=== PATIENT | male | born 1950 | race African-American/Black ===

== ENCOUNTER → 2017-11-26 13:17 | Outpatient (CLI) | payer MEDICARE, SELFPAY ==
--- NOTE | 2017-11-27 08:44 | PFT ---
INTRODUCTION: The patient is a 67-year-old -[place] male currently under the care of myself the presents for pulmonary function testing secondary to a diagnosis of sarcoidosis. Respiratory therapy reports good patient effort. Bronchodilators were used during testing. INTERPRETATION: Forced expiration spirometry demonstrates the presence of a mild large airways obstructive ventilatory impairment. There was no significant response to aerosolized bronchodilators. Spirograms are of good quality and plateau gradually indicating slow emptying of the lungs. Body plethysmography was performed and reveals a TLC of 5.27 L, 83% of predicted, indicative of a mild restrictive ventilatory defect. Diffusing capacity by single breath CO is within normal limits at 86% of predicted. IMPRESSION: These pulmonary function studies demonstrate the presence of an irreversible mild mixed ventilatory defect, with findings similar to prior PFTs.
--- NOTE | 2017-11-27 08:50 | PFT_ITS ---
INTRODUCTION: The patient is a 67-year-old -[place] male currently under the care of myself the presents for pulmonary function testing secondary to a diagnosis of sarcoidosis. Respiratory therapy reports good patient effort. Bronchodilators were used during testing. INTERPRETATION: Forced expiration spirometry demonstrates the presence of a mild large airways obstructive ventilatory impairment. There was no significant response to aerosolized bronchodilators. Spirograms are of good quality and plateau gradually indicating slow emptying of the lungs. Body plethysmography was performed and reveals a TLC of 5.27 L, 83% of predicted, indicative of a mild restrictive ventilatory defect. Diffusing capacity by single breath CO is within normal limits at 86% of predicted. IMPRESSION: These pulmonary function studies demonstrate the presence of an irreversible mild mixed ventilatory defect, with findings similar to prior PFTs.
== END ==
PROVIDERS: Family Provider Family Medicine; PCP Family Medicine; Visit Provider Internal Medicine Critical Care Medicine
DX: D86.9 Sarcoidosis, unspecified (principal)
CPT/HCPCS: 94060; 94726; 94729

== ENCOUNTER → 2018-03-19 11:22 | Outpatient (CLI) | payer MEDICARE, SELFPAY ==
[2018-03-19 12:43] LABS: AST(SGOT) 17 U/L (15-37); Alanine Aminotransfer ALT/SGPT 28 U/L (16-61); Albumin, Serum 3.2 g/dL (3.2-5.0); Alkaline Phosphatase 60 U/L (45-117); Anion Gap 9 (5-15); BUN 16 mg/dL (7-18); BUN/Creat Ratio 14.2 RATIO (10-20); Bilirubin, Direct 0.17 mg/dL (0.00-0.30); Calcium,Total 8.8 mg/dL (8.5-10.1); Chloride 104 mmol/L (98-107); Cholesterol 153 mg/dL (200); Creatinine, Serum 1.13 mg/dL (0.70-1.30); EST Glomerular Filtration Rate 69 mL/min (>60); Est Glom Filt Rate - Afr Amer 83 mL/min (>60); Globulin 3.9 g/dL (2.2-4.2); Glucose 95 mg/dL (74-106); High Density Lipoprotein 47 mg/dL; Potassium 4.2 mmol/L (3.5-5.1); Protein, Total 7.1 g/dL (6.4-8.2); Sodium Level 140 mmol/L (136-145); Thyroid Stim Hormone (TSH) 0.97 uIU/mL (0.358-3.74); Triglycerides 67 mg/dL; Very Low Density Lipoprotein 13 mg/dL (5-40)
== END ==
PROVIDERS: Family Provider Family Medicine; PCP Family Medicine; Visit Provider Internal Medicine Cardiovascular Disease
DX: I10 Essential (primary) hypertension (principal); E78.5 Hyperlipidemia, unspecified; Z95.810 Presence of automatic (implantable) cardiac defibrillator
CPT/HCPCS: 36415; 80048; 80061; 80076; 84443

== ENCOUNTER → 2019-02-03 | Outpatient (CLI) | payer MEDICARE, OTHER, SELFPAY ==
[2019-02-03 12:58] VITALS: BMI 33.6
[2019-02-03 17:42] LABS: AST(SGOT) 15 U/L (15-37); Alanine Aminotransfer ALT/SGPT 31 U/L (16-61); Albumin, Serum 3.3 g/dL (3.2-5.0); Alkaline Phosphatase 68 U/L (45-117); Anion Gap 5 (5-15); BUN 19 mg/dL (7-18); BUN/Creat Ratio 16.4 RATIO (10-20); Bilirubin, Direct 0.14 mg/dL (0.00-0.30); Calcium,Total 9.6 mg/dL (8.5-10.1); Chloride 106 mmol/L (98-107); Cholesterol 133 mg/dL (200); Creatinine, Serum 1.16 mg/dL (0.70-1.30); EST Glomerular Filtration Rate 67 mL/min (>60); Est Glom Filt Rate - Afr Amer 81 mL/min (>60); Glucose 86 mg/dL (74-106); High Density Lipoprotein 54 mg/dL; Potassium 4.1 mmol/L (3.5-5.1); Protein, Total 7.3 g/dL (6.4-8.2); Sodium Level 140 mmol/L (136-145); Thyroid Stim Hormone (TSH) 1.14 uIU/mL (0.358-3.74); Triglycerides 63 mg/dL; Very Low Density Lipoprotein 13 mg/dL (5-40)
== END | disposition home or self-care (01) ==
PROVIDERS: Family Provider Family Medicine; PCP Family Medicine; Referring Provider Internal Medicine Cardiovascular Disease; Visit Provider Internal Medicine Cardiovascular Disease
DX: E78.5 Hyperlipidemia, unspecified (principal)
CPT/HCPCS: 36415; 80048; 80061; 80076; 84443

== ENCOUNTER → 2019-08-30 14:15 | Outpatient (CLI) | payer MEDICARE, OTHER, SELFPAY ==
[2019-08-25 16:04] VITALS: BMI 34.7
[2019-08-30 16:33] LABS: AST(SGOT) 18 U/L (15-37); Alanine Aminotransfer ALT/SGPT 33 U/L (16-61); Albumin, Serum 3.4 g/dL (3.2-5.0); Alkaline Phosphatase 68 U/L (45-117); Anion Gap 5 (5-15); BUN 13 mg/dL (7-18); BUN/Creat Ratio 11.8 RATIO (10-20); Bilirubin, Direct 0.22 mg/dL (0.00-0.30); Calcium,Total 9.2 mg/dL (8.5-10.1); Chloride 105 mmol/L (98-107); Cholesterol 191 mg/dL (200); EST Glomerular Filtration Rate 71 mL/min (>60); Est Glom Filt Rate - Afr Amer 86 mL/min (>60); Globulin 4.3 g/dL (2.2-4.2); Glucose 88 mg/dL (74-106); High Density Lipoprotein 59 mg/dL; Magnesium 1.8 mg/dL (1.6-2.6); Potassium 3.9 mmol/L (3.5-5.1); Protein, Total 7.7 g/dL (6.4-8.2); Sodium Level 137 mmol/L (136-145); Thyroid Stim Hormone (TSH) 1.08 uIU/mL (0.358-3.74); Triglycerides 71 mg/dL; Very Low Density Lipoprotein 14 mg/dL (5-40)
== END ==
PROVIDERS: PCP Family Medicine; Referring Provider Internal Medicine Cardiovascular Disease; Visit Provider Internal Medicine Cardiovascular Disease
DX: I47.2 Ventricular tachycardia (principal); E78.5 Hyperlipidemia, unspecified; E66.9 Obesity, unspecified; I25.5 Ischemic cardiomyopathy; I10 Essential (primary) hypertension
CPT/HCPCS: 36415; 80048; 80061; 80076; 83735; 84443

== ENCOUNTER → 2020-03-27 14:54 | Outpatient (CLI) | payer MEDICARE, OTHER, SELFPAY ==
[2020-03-27 13:20] VITALS: BMI 35.9
[2020-03-27 16:59] LABS: AST(SGOT) 20 U/L (15-37); Alanine Aminotransfer ALT/SGPT 29 U/L (16-61); Albumin, Serum 3.4 g/dL (3.2-5.0); Alkaline Phosphatase 69 U/L (45-117); Bilirubin, Direct 0.18 mg/dL (0.00-0.30); Cholesterol 191 mg/dL (200); Globulin 4.2 g/dL (2.2-4.2); High Density Lipoprotein 56 mg/dL; Protein, Total 7.6 g/dL (6.4-8.2); Triglycerides 84 mg/dL; Very Low Density Lipoprotein 17 mg/dL (5-40)
== END ==
PROVIDERS: PCP Family Medicine; Referring Provider Internal Medicine Cardiovascular Disease; Visit Provider Internal Medicine Cardiovascular Disease
DX: E78.5 Hyperlipidemia, unspecified (principal); E78.00 Pure hypercholesterolemia, unspecified
CPT/HCPCS: 36415; 80061; 80076

== ENCOUNTER → 2020-05-16 | Outpatient (CLI) | payer MEDICARE, OTHER, SELFPAY ==
[2020-03-27 13:20] VITALS: BMI 35.9
== END | disposition home or self-care (01) ==
LOC: LABSPEC 05-17 10:43
PROVIDERS: PCP Family Medicine; Referring Provider Nurse Practitioner Acute Care; Visit Provider Nurse Practitioner Acute Care
DX: Z20.828 Contact with and (suspected) exposure to other viral communicable diseases (principal)
CPT/HCPCS: 87635; C9803; U0003

== ENCOUNTER → 2020-07-17 14:35 | Outpatient (CLI) | payer MEDICARE, OTHER, SELFPAY ==
[2020-03-27 13:20] VITALS: BMI 35.9
[2020-07-18 07:00] LABS: SARS-COV-2 TOTAL ABS Reactive (Nonreactive)
== END ==
PROVIDERS: PCP Family Medicine; Referring Provider Nurse Practitioner Acute Care; Visit Provider Nurse Practitioner Acute Care
DX: U07.1 COVID-19 (principal)
CPT/HCPCS: 36415; 86769

== ENCOUNTER → 2020-07-30 08:12 | Outpatient (CLI) | payer MEDICARE, OTHER, SELFPAY ==
[2020-03-27 13:20] VITALS: BMI 35.9
--- NOTE | 2020-07-31 09:02 | PFT ---
INTRODUCTION: The patient is a 70-year-old -[place] male who presents for pulmonary function studies secondary to a diagnosis of sarcoidosis. Respiratory therapy reports good patient effort. Bronchodilators were used during testing. INTERPRETATION: Forced expiration spirometry demonstrates the presence of a moderate large airways obstructive ventilatory defect. There was no significant response to aerosolized bronchodilators. Spirograms are of good quality but do not plateau indicating slow emptying of the lungs. Body plethysmography was performed and revealed a decreased TLC to 4.86 L, 77% of predicted, indicative of a mild restrictive ventilatory impairment. Diffusing capacity by single breath CO is within normal limits. When compared to pulmonary function studies from November 2017, there has been a 16% reduction in FEV1 along with an 11% reduction in DLCO. IMPRESSION: Irreversible moderate mixed ventilatory defect with preserved diffusing capacity. There have been reductions in the patient's FEV1 and DLCO since 2017, as noted above.
== END ==
PROVIDERS: PCP Family Medicine; Referring Provider Internal Medicine Critical Care Medicine; Visit Provider Internal Medicine Critical Care Medicine
DX: I25.5 Ischemic cardiomyopathy (principal); D86.9 Sarcoidosis, unspecified
CPT/HCPCS: 94060; 94726; 94729

== ENCOUNTER → 2020-08-07 08:12 | Outpatient (CLI) | payer MEDICARE, OTHER, SELFPAY ==
[2020-03-27 13:20] VITALS: BMI 35.9
[2020-08-07 08:15] VITALS: PULSE 102; PULSE 110; PULSE 114; PULSE 119; PULSE 86; PULSE 93; PULSE 97; O2SAT 90; O2SAT 91; O2SAT 92; O2SAT 95
--- NOTE | 2020-08-07 09:55 | WT_ITS ---
PSN 6 Minute Walk Test - 6 Minute Walk Test 6 Minute Walk Test: 6 Minute Walk Test PSN:6-Minute Walk Test Start: 08/07/20 08:30 Freq: Status: Active Protocol: [id number].6MINW Document 08/07/20 08:15 HJ (Rec: 08/07/20 08:33 [id number]) 6 Minute Walk Test Date Performed 08/07/20 Time Performed 08:15 Height 5 ft 9 in Weight: 112.037 kg Weight in Pounds 247.[address]: Reno Treadwell FIO2 (% Oxygen) 21 Assistive device used: None Pre-test Oxygen Delivery Method Room Air Pulse Ox (%) 95 Pulse Rate (60-100 beats/min) 86 Dyspnea Michel Scale (0-10) 0 Exertion Michel Scale (6-20) 6 1st minute Oxygen Delivery Method Room Air Pulse Ox (%) 92 Pulse Rate (60-100 beats/min) 97 2nd minute Oxygen Delivery Method Room Air Pulse Ox (%) 90 Pulse Rate (60-100 beats/min) 102 H 3rd minute Oxygen Delivery Method Room Air Pulse Ox (%) 90 Pulse Rate (60-100 beats/min) 110 H 4th minute Oxygen Delivery Method Room Air Pulse Ox (%) 91 Pulse Rate (60-100 beats/min) 102 H 5th minute Oxygen Delivery Method Room Air Pulse Ox (%) 92 Pulse Rate (60-100 beats/min) 114 H 6th minute Oxygen Delivery Method Room Air Pulse Ox (%) 92 Pulse Rate (60-100 beats/min) 119 H Post-test Oxygen Delivery Method Room Air Pulse Ox (%) 95 Pulse Rate (60-100 beats/min) 93 Dyspnea Michel Scale (0-10) 3 Exertion Michel Scale (6-20) 13 Full Laps Walked 18 Partial Lap, Number of Tiles Walked 0 Total Distance Walked (ft) 1062 - Interpretation Interpretation: Patient was able to ambulate 1062 feet over the course of 6 minutes on room air with no assistive devices or breaks. The patient did have a significant d esaturation from a baseline of 95% to as low as 90%. Patient also had some reflexive tachycardia. These findings are consistent with a respiratory limitation exercise tolerance. - Recommendations Recommendations: No supplemental oxygen is indicated at this time. However, patient will need to be followed closely given level of desaturation.
== END ==
PROVIDERS: PCP Family Medicine; Referring Provider Internal Medicine Critical Care Medicine; Visit Provider Internal Medicine Critical Care Medicine
DX: D86.9 Sarcoidosis, unspecified (principal); I25.5 Ischemic cardiomyopathy
CPT/HCPCS: 94618

== ENCOUNTER → 2020-09-27 11:37 | Outpatient (CLI) | payer MEDICARE, OTHER, SELFPAY ==
[2020-09-27 09:43] VITALS: BMI 36.3
[2020-09-27 12:45] LABS: BNP,B-Type NATRIURETIC PEPTIDE 51.2 pg/mL (0-100)
== END ==
PROVIDERS: PCP Family Medicine; Referring Provider Internal Medicine Cardiovascular Disease; Visit Provider Internal Medicine Cardiovascular Disease
DX: R06.00 Dyspnea, unspecified (principal)
CPT/HCPCS: 36415; 83880

== ENCOUNTER → 2020-10-04 13:06 | Outpatient (CLI) | payer MEDICARE, OTHER, SELFPAY ==
[2020-08-23 08:23] VITALS: BMI 37.0
[2020-09-27 09:43] VITALS: BMI 36.3
--- NOTE | 2020-10-04 13:07 | ECHOCS_ITS ---
Reason For Study: SOB Procedure This was a 2D Doppler, Color Flow transthoracic echocardiogram. The study was technically difficult. Exam performed in department. Left Ventricle Normal LV size. Severe segmental systolic dysfunction (see wall motion). The estimated ejection fraction is 30 %. Stage 1 diastolic dysfunction. Cook : Akinetic. Anterior Cook : Akinetic. Infero- Basal: Hypokinetic. Mid-Inferior: Hypokinetic. Anterio-Basal: Normal. Mid-Anterior : Normal. The rest of the wall segments are hypokinetic. Right Ventricle Normal RV size. ICD or pacer leads identified within the right ventricle. Normal systolic function. Atria Normal left atrium. Normal right atrium. Mitral Valve Normal mitral valve. Tricuspid Valve Normal tricuspid valve. Unable to estimate RV systolic pressure due to insufficient tricuspid regurgitant envelope. Aortic Valve Trisinus/trileaflet aortic valve. Pulmonic Valve Normal pulmonic valve. Great Vessels Normal aortic root. The pulmonary artery is normal size. Normal inferior vena cava. Pericardium/Pleural No pericardial effusion. Medication 22 gauge I.V. with prn adaptor inserted into right arm. Diluted definity 4ml given slow IV push to enhance endocardial definition. MMode/2D Measurements & Calculations LVIDd: 4.6 cm IVSd: 1.5 cm Ao root diam: 3.7 cm LVIDs: 3.7 cm LVPWd: 0.93 cm RVDd: 3.8 cm FS: 19.1 % LAV(MOD-bp): 66.3 ml LA A4 area: 20.4 cm2 LA dimension(2D): 3.9 cm LAV(MOD-bp) Indexed: 29.4 ml/m2 LAV(MOD-sp2): 55.6 ml LAV(MOD-sp4): 59.7 ml RA A4 area: 14.9 cm2 Doppler Measurements & Calculations MV E max brent: 44.5 cm/sec Lat Peak E' Brent: 5.8 cm/sec Med Peak E' Brent: 4.8 cm/sec MV A max brent: 98.9 cm/sec E/E' lat: 7.7 E/E' med: 9.3 MV E/A: 0.45 Ao V2 max: 131.9 cm/sec LV V1 max: 98.9 cm/sec PA V2 max: 100.0 cm/sec Ao max P.0 mmHg LV V1 max P.9 mmHg Interpretation Summary Normal LV size. Severe segmental systolic dysfunction (see wall motion). The estimated ejection fraction is 30 %. Stage 1 diastolic dysfunction. Compared to prior study, there is no significant change. Ordering Physician: Reno Treadwell Referring Physician: GUILLE Pedersen M.D. Performed By: Coral Lucas RDCS
== END ==
PROVIDERS: PCP Family Medicine; Referring Provider Internal Medicine Critical Care Medicine; Visit Provider Internal Medicine Critical Care Medicine
DX: R06.00 Dyspnea, unspecified (principal); R06.02 Shortness of breath
CPT/HCPCS: 93306; Q9957; A4216; C8929

== ENCOUNTER → 2021-04-02 15:14 | Outpatient (CLI) | payer MEDICARE, OTHER, SELFPAY ==
[2021-04-02 17:10] LABS: BNP,B-Type NATRIURETIC PEPTIDE 89.9 pg/mL (0-100)
[2021-04-02 17:15] LABS: AST(SGOT) 18 U/L (15-37); Alanine Aminotransfer ALT/SGPT 34 U/L (16-61); Alkaline Phosphatase 66 U/L (45-117); Anion Gap 4 (5-15); BUN 19 mg/dL (7-18); BUN/Creat Ratio 17.3 RATIO (10-20); Bilirubin, Direct 0.14 mg/dL (0.00-0.30); Calcium,Total 9.3 mg/dL (8.5-10.1); Chloride 106 mmol/L (98-107); Cholesterol 185 mg/dL (200); EST Glomerular Filtration Rate 70 mL/min (>60); Est Glom Filt Rate - Afr Amer 85 mL/min (>60); Globulin 4.2 g/dL (2.2-4.2); Glucose 86 mg/dL (74-106); High Density Lipoprotein 46 mg/dL; Protein, Total 7.2 g/dL (6.4-8.2); Sodium Level 140 mmol/L (136-145); Triglycerides 128 mg/dL; Very Low Density Lipoprotein 26 mg/dL (5-40)
== END ==
PROVIDERS: PCP Family Medicine; Visit Provider Internal Medicine Cardiovascular Disease
DX: I50.42 Chronic combined systolic (congestive) and diastolic (congestive) heart failure (principal); R06.00 Dyspnea, unspecified; E78.00 Pure hypercholesterolemia, unspecified; E78.5 Hyperlipidemia, unspecified
CPT/HCPCS: 36415; 80048; 80061; 80076; 83880

== ENCOUNTER 2021-07-03 18:24 | Emergency (ER) | payer MEDICARE, OTHER, SELFPAY ==
[2021-07-03 18:26] VITALS: BP 129/96; PULSE 89; RESP 17; TEMP 35.6; O2SAT 97; BMI 37.3
--- NOTE | 2021-07-03 18:43 | EDS_ITS ---
HPI History of Present Illness Chief Complaint: Fall Narrative Narrative: 70-year-old male presenting with left calf hematoma. He states he was hanging [place] lights and tripped and fell. He states that on his way down his head grazed the guidewire but he did not hit his head on the ground and did not lose consciousness. He has no dizziness, lightheadedness, visual complaints, nausea, vomiting. Patient is ambulatory but states he does have some pain with a hematoma is on his left leg. Patient is on Plavix. 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 Pneumonia Prostate CA Sarcoidosis Ventricular tachycardia Home Medications aspirin 81 mg PO DAILY 12/23/16 [History Last Taken 05/06/17] calcium carbonate-vitamin D3 1 ea PO BID 12/23/16 [History Last Taken 05/06/17] fluoxetine 20 mg PO DAILY 12/23/16 [History Last Taken 05/06/17] multivitamin 1 ea PO DAILY 12/23/16 [History Last Taken 05/06/17] ramipril 10 mg PO DAILY 12/23/16 [History Last Taken 05/06/17] tamsulosin 0.4 cap PO DAILY 12/23/16 [History Last Taken 05/06/17] lorazepam 1 mg tablet 1 mg PO QHS PRN 10/12/17 [History Last Taken Unknown] nitroglycerin 0.4 mg sublingual tablet 0.4 mg SUBLINGUAL Q5M PRN #25 tab 08/30/18 [Rx Last Taken Unknown] carvedilol 25 mg tablet 25 mg PO BID #180 tab 03/11/21 [Rx Last Taken Unknown] clopidogrel 75 mg tablet 75 mg PO DAILY #90 tab 04/24/21 [Rx Last Taken Unknown] hydroxyzine pamoate 25 mg capsule 25 mg PO QHS cap 06/24/21 [History Last Taken Unknown] pravastatin 40 mg tablet 40 mg PO DAILY tab 06/24/21 [History Last Taken Unknown] albuterol sulfate 90 mcg/actuation aerosol inhaler 2 puff INHALATION Q4H PRN #8.5 g 06/28/21 [Rx Last Taken Unknown] Allergy/AdvReac Type Severity Reaction Status Date / Time atorvastatin [From Lipitor] Allergy Unknown Verified 07/03/21 18:25 Iodinated Contrast Media Allergy Anaphylaxis Verified 07/03/21 18:25 [CONTRASTS] pravastatin AdvReac myalgia Verified 07/03/21 18:25 simvastatin AdvReac myalgia Verified 07/03/21 18:25 Family History Father Myocardial infarction CAD (coronary artery disease) Heart disease Prostate CA Mother Kidney disease CVA (cerebral vascular accident) Cystic fibrosis Sister Cystic fibrosis Sister Cystic fibrosis Surgical History H/O Achilles tendon repair H/O umbilical hernia repair History of coronary artery stent placement (05/19/05) History of implantable cardiac defibrillator (ICD) (09/19/10) History of left heart catheterization (05/06/17) History of open reduction and internal fixation (ORIF) procedure Social History Smoking Status: Never smoker alcohol intake: current alcohol intake frequency: 0-2 drinks per day Alcohol type: beer substance use type: does not use ROS ROS ED Constitutional Constitutional ED: Denies chills or fever(s) Eyes Eyes: Denies blurry vision or diplopia ENT ENT ED: Denies rhinorrhea or sore throat Cardiovascular Cardiovascular: Denies chest pain or palpitations Respiratory/Chest Respiratory/Chest: Denies cough or dyspnea Gastrointestinal Gastrointestinal: Denies abdominal pain or nausea Genitourinary Genitourinary ED: Denies dysuria or hematuria Musculoskeletal Musculoskeletal: Reports other Details: Left calf hematoma Integumentary Denies Abrasions or rash Neurologic Neurologic: Denies headache(s) or paresthesias EXAM Physical Exam Const Vital Signs: 07/03/21 18:26 07/03/21 18:35 Temperature 96.0 F L Temperature Source Temporal Pulse Rate 89 Respiratory Rate 17 Respiratory Effort Normal Non-Labored Respiratory Depth Normal Respiratory Pattern Normal Blood Pressure 129/96 H Blood Pressure Mean 107 Pulse Ox 97 Oxygen Delivery Method Room Air Room Air Positive well nourished General Appearance ED: NAD HEENT Reports moist mucous membranes normocephalic and atraumatic Eyes PERRL Resp normal respiratory effort and clear to auscultation bilaterally Cardio regular rate and regular rhythm Extremity Extremity Narrative: Tenderness to palpation over left medial calf. There is a hematoma overlying the medial aspect which is about 5 cm in circular. It is not pulsatile. Patient able to stand and ambulate without much difficulty. No bony tenderness is noted. Neuro oriented x3 Sensorium / Orientation: alert MDM MDM MDM Narrative Medical decision making narrative: Patient presenting for left leg hematoma. He is on Plavix and was told to come here by his family. He is ambulatory and has no bony tenderness. I do not believe he needs any x-rays or other injuries. I will apply an Lionel wrap to the patient's lower extremity. He is counseled to elevate and ice this for pain. If this starts to expand or becomes more painful he should return to the ER. Impression: 1. Left calf hematoma 2. Mechanical fall Discharge Plan Triage Chief Complaint: Fall ED Provider: Amlo Esquivel Dx/Rx/DC Orders Instructions: ED Hematoma Prescriptions: No Action hydroxyzine pamoate 25 mg capsule 25 mg PO QHS RF: 0 pravastatin 40 mg tablet 40 mg PO DAILY RF: 0 multivitamin 1 EACH tablet 1 ea PO DAILY RF: 0 aspirin 81 MG tablet,delayed release (DR/EC) 81 mg PO DAILY RF: 0 tamsulosin 0.4 MG capsule 0.4 cap PO DAILY RF: 0 fluoxetine 20 MG capsule 20 mg PO DAILY RF: 0 ramipril 10 MG capsule 10 mg PO DAILY RF: 0 calcium carbonate-vitamin D3 1 EACH tablet 1 ea PO BID RF: 0 lorazepam 1 mg tablet 1 mg PO QHS PRNRF: 0 nitroglycerin 0.4 mg tablet, sublingual 0.4 mg SUBLINGUAL Q5M PRN (Reason: Chest Pain) Qty: 25 RF: 1 carvedilol 25 mg tablet 25 mg PO BID Qty: 180 RF: 3 clopidogrel 75 mg tablet 75 mg PO DAILY Qty: 90 RF: 3 albuterol sulfate 90 mcg/actuation HFA aerosol inhaler 2 puff INHALATION Q4H PRN (Reason: shortness of breath or wheezing) Qty: 8.5 RF: 3 Primary Care Provider: Sanju Guillen Referrals: Sanju Guillen MD [Primary Care Provider] - Disposition Disposition: Home, Self Care
== END 2021-07-03 18:53 | disposition home or self-care (01) ==
LOC: ED 18:48
PROVIDERS: Emergency Provider Student in an Organized Health Care Education/Training Program; PCP Family Medicine
DX: S80.12XA Contusion of left lower leg, initial encounter (principal); W01.0XXA Fall on same level from slipping, tripping and stumbling without subsequent striking against object, initial encounter; Y92.9 Unspecified place or not applicable; Y93.9 Activity, unspecified; D86.9 Sarcoidosis, unspecified; E66.9 Obesity, unspecified; Z68.37 Body mass index [BMI] 37.0-37.9, adult; E78.5 Hyperlipidemia, unspecified; I11.0 Hypertensive heart disease with heart failure; I50.42 Chronic combined systolic (congestive) and diastolic (congestive) heart failure; I25.10 Atherosclerotic heart disease of native coronary artery without angina pectoris; I25.2 Old myocardial infarction; I25.5 Ischemic cardiomyopathy; I47.2 Ventricular tachycardia; Z87.19 Personal history of other diseases of the digestive system; Z85.46 Personal history of malignant neoplasm of prostate; Z87.01 Personal history of pneumonia (recurrent); Z95.810 Presence of automatic (implantable) cardiac defibrillator; Z79.82 Long term (current) use of aspirin; Z79.02 Long term (current) use of antithrombotics/antiplatelets; Z79.899 Other long term (current) drug therapy
CPT/HCPCS: 99282

== ENCOUNTER 2021-10-03 14:36 | Outpatient (CLI) | payer MEDICARE, OTHER, SELFPAY ==
[2021-10-03 16:51] LABS: Anion Gap 2 (5-15); BUN 16 mg/dL (7-18); BUN/Creat Ratio 13.3 RATIO (10-20); Calcium,Total 9.1 mg/dL (8.5-10.1); Chloride 105 mmol/L (98-107); EST Glomerular Filtration Rate 64 mL/min (>60); Est Glom Filt Rate - Afr Amer 77 mL/min (>60); Glucose 86 mg/dL (74-106); Potassium 3.9 mmol/L (3.5-5.1); Sodium Level 138 mmol/L (136-145)
[2021-10-03 17:17] LABS: BNP,B-Type NATRIURETIC PEPTIDE 72.4 pg/mL (0-100)
== END 2021-10-03 23:59 | disposition home or self-care (01) ==
LOC: LAB 14:38
PROVIDERS: PCP Family Medicine; Visit Provider Internal Medicine Cardiovascular Disease
DX: I50.42 Chronic combined systolic (congestive) and diastolic (congestive) heart failure (principal); R06.00 Dyspnea, unspecified
CPT/HCPCS: 36415; 80048; 83880

== ENCOUNTER → 2023-03-26 | Outpatient (CLI) | payer MEDICARE, OTHER, SELFPAY ==
[2023-03-26 16:38] LABS: AST(SGOT) 19 U/L (15-37); Alanine Aminotransfer ALT/SGPT 34 U/L (16-61); Albumin, Serum 3.2 g/dL (3.2-5.0); Alkaline Phosphatase 65 U/L (45-117); Anion Gap 4 (5-15); BUN 18 mg/dL (7-18); Bilirubin, Direct 0.13 mg/dL (0.00-0.30); Calcium,Total 9.3 mg/dL (8.5-10.1); Chloride 105 mmol/L (98-107); Cholesterol 197 mg/dL (200); EST Glomerular Filtration Rate 63 mL/min (>60); Est Glom Filt Rate - Afr Amer 77 mL/min (>60); Globulin 3.9 g/dL (2.2-4.2); Glucose 91 mg/dL (74-106); High Density Lipoprotein 49 mg/dL; Protein, Total 7.1 g/dL (6.4-8.2); Sodium Level 138 mmol/L (136-145); Thyroid Stim Hormone (TSH) 1.08 uIU/mL (0.358-3.74); Triglycerides 100 mg/dL; Very Low Density Lipoprotein 20 mg/dL (5-40)
== END | disposition home or self-care (01) ==
LOC: LAB 15:41
PROVIDERS: PCP Family Medicine; Referring Provider Internal Medicine Cardiovascular Disease; Visit Provider Internal Medicine Cardiovascular Disease
DX: E78.5 Hyperlipidemia, unspecified (principal); I25.10 Atherosclerotic heart disease of native coronary artery without angina pectoris
CPT/HCPCS: 36415; 80048; 80061; 80076; 83735; 84443

== ENCOUNTER 2023-08-25 19:29 | Observation (INO) | payer MEDICARE, OTHER, SELFPAY ==
--- NOTE | 2023-08-25 19:31 | ED.RN ---
DR. GUEVARA NOTIFIED OF SYMPTOMS AND STATES TO ROOM PATIENT
[2023-08-25 19:32] VITALS: BP 146/83; PULSE 71; RESP 16; TEMP 36.2; O2SAT 97; BMI 36.4
--- NOTE | 2023-08-25 19:48 | EX.ED.DYSGE1 ---
HPI History of Present Illness Chief Complaint: Dizziness Informant: patient Onset/Context/Timing Onset: Today Context: Sudden Onset Timing: Intermittent and Lasts (Approximately 15 to 20 minutes) Quality: Lightheaded, off balance Location: Generalized Worsened by: Nothing Relieved by: Nothing Narrative Narrative: Patient presents with an episode of lightheadedness and expressive aphasia that occurred tonight. 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 Patient states he was having difficulty speaking. Patient states he knew what he wanted to say but was unable to say the words that he wanted to say. Patient states this lasted for approximately 15 to 20 minutes. Patient states he felt like he was off balance. Patient admits to some tinnitus. Patient denies any spinning sensation. Patient states nothing makes his symptoms better nothing made it worse. Patient admits to some recent shortness of breath and cough. Patient denies any headaches. Patient admits to some neck and back pain however. Currently, the patient still feels somewhat lightheaded but denies any spinning sensation or speech difficulty. 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 Pneumonia Prostate CA Sarcoidosis Ventricular tachycardia Home Medications aspirin 81 mg tablet,delayed release 81 mg PO DAILY 12/23/16 [History Last Taken 05/06/17] calcium carbonate 500 mg-vitamin D3 5 mcg (200 unit) tablet 1 ea PO BID 12/23/16 [History Last Taken 05/06/17] fluoxetine 20 mg capsule 20 mg PO DAILY 12/23/16 [History Last Taken 05/06/17] multivitamin 1 ea PO DAILY 12/23/16 [History Last Taken 05/06/17] ramipril 10 mg capsule 10 mg PO DAILY 12/23/16 [History Last Taken 05/06/17] nitroglycerin 0.4 mg sublingual tablet 0.4 mg sublingual Q5M PRN Chest Pain #25 tabs 08/30/18 [Rx Last Taken Unknown] albuterol sulfate 90 mcg/actuation aerosol inhaler 2 puff inhalation Q4H PRN shortness of breath or wheezing #8.5 grams 06/28/21 [Rx Last Taken Unknown] carvedilol 25 mg tablet 25 mg PO BID #180 tabs 07/11/22 [Rx Last Taken Unknown] clopidogrel 75 mg tablet 75 mg PO DAILY #90 tabs 09/03/22 [Rx Last Taken Unknown] tamsulosin 0.4 mg capsule 0.4 mg PO DAILY 10/14/22 [History Last Taken Unknown] Clopidoxyzine insomnia 08/25/23 [History Last Taken Unknown] pravastatin 40 mg tablet 40 mg PO QHS 08/25/23 [History Last Taken Unknown] Allergy/AdvReac Type Severity Reaction Status Date / Time atorvastatin [From Lipitor] Allergy Unknown Verified 08/25/23 19:34 Iodinated Contrast Media Allergy Anaphylaxis Verified 08/25/23 19:34 [CONTRASTS] pravastatin AdvReac myalgia Verified 08/25/23 19:34 simvastatin AdvReac myalgia Verified 08/25/23 19:34 Family History Father Myocardial infarction CAD (coronary artery disease) Heart disease Prostate CA Mother Kidney disease CVA (cerebral vascular accident) Cystic fibrosis Sister Cystic fibrosis Sister Cystic fibrosis Surgical History H/O Achilles tendon repair H/O umbilical hernia repair History of coronary artery stent placement (05/19/05) History of implantable cardiac defibrillator (ICD) (09/19/10) History of left heart catheterization (05/06/17) History of open reduction and internal fixation (ORIF) procedure Social History Smoking Status: Never smoker alcohol intake: current alcohol intake frequency: a few times a week Alcohol type: beer and hard liquor substance use type: does not use ROS ROS ED Constitutional Constitutional ED: Denies chills or fever(s) Eyes Eyes: Reports change in vision; Denies blurry vision ENT ENT ED: Denies rhinorrhea or sore throat Cardiovascular Cardiovascular: Denies chest pain or palpitations Respiratory/Chest Respiratory/Chest: Reports cough and dyspnea Gastrointestinal Gastrointestinal: Denies nausea or vomiting Genitourinary Genitourinary ED: Denies dysuria or hematuria Musculoskeletal Musculoskeletal: Reports back pain and neck pain Integumentary Denies abscess or rash Neurologic Neurologic: Denies headache(s) or weakness Allergic/Immunologic Allergic/Immunologic ED: Denies mouth swelling or urticaria EXAM Physical Exam Const Vital Signs: 08/25/23 19:32 08/25/23 21:04 08/25/23 22:19 Temperature 97.1 F L Temperature Source Temporal Pulse Rate 71 69 76 Pulse Rate [Lying] Pulse Rate [Sitting (for 1 minute prior to obtaining)] Pulse Rate [Standing (for 1 minute prior to obtaining)] Respiratory Rate 16 15 16 Blood Pressure 146/83 H 135/79 H 157/96 H Blood Pressure [Lying] Blood Pressure [Sitting (for 1 minute prior to obtaining)] Blood Pressure [Standing (for 1 minute prior to obtaining)] Blood Pressure Mean 104 97 116 Blood Pressure Mean [Lying] Blood Pressure Mean [Sitting (for 1 minute prior to obtaining)] Blood Pressure Mean [Standing (for 1 minute prior to obtaining)] Pulse Ox 97 95 98 Oxygen Delivery Method Room Air Room Air Room Air 08/25/23 22:32 08/25/23 23:00 Temperature Temperature Source Pulse Rate 75 Pulse Rate [Lying] 63 Pulse Rate [Sitting (for 1 minute prior to obtaining)] 65 Pulse Rate [Standing (for 1 minute prior to obtaining)] 83 Respiratory Rate 21 H Blood Pressure 149/108 H Blood Pressure [Lying] 156/92 H Blood Pressure [Sitting (for 1 minute prior to obtaining)] 160/100 H Blood Pressure [Standing (for 1 minute prior to obtaining)] 172/107 H Blood Pressure Mean 121 Blood Pressure Mean [Lying] 113 Blood Pressure Mean [Sitting (for 1 minute prior to obtaining)] 120 Blood Pressure Mean [Standing (for 1 minute prior to obtaining)] 128 Pulse Ox 97 Oxygen Delivery Method Positive well nourished, well developed and obese General Appearance ED: well developed and NAD Nutritional Appearance: obese HEENT Reports moist mucous membranes Neck supple and no JVD Chest Wall palpation of chest normal Resp normal respiratory effort and clear to auscultation bilaterally Cardio regular rate and regular rhythm GI non-tender and non-distended Palpation: soft Neuro oriented x3, CN's II-XII intact bilaterally and no sensory deficits noted Sensorium / Orientation: alert Motor Exam: strength 5/5 throughout Psych mental status grossly normal MDM MDM MDM Narrative Medical decision making narrative: Patient has a NIH score of 0. I do not feel he needs to be a stroke alert. Differential diagnosis includes TIA, electrolyte abnormality, dehydration, anxiety, cardiac dysrhythmia, cardiac ischemia, pneumonia, pneumothorax coagulopathy, and viral illness. CT scan of the brain will be obtained to assess for intracranial bleeding. Chest x-ray will be obtained to assess for pneumonia and pneumothorax. EKG will be obtained to assess for cardiac dysrhythmia and cardiac ischemia. CBC will be obtained to assess for leukocytosis and anemia. Comprehensive metabolic profile will be obtained to assess for hepatic function, renal function, and electrolyte abnormality. PT was INR and PTT will be obtained to assess for coagulopathy. High-sensitivity troponin will be obtained to assess for cardiac ischemia. 2-hour repeat high-sensitivity troponin will be obtained to assess for ongoing cardiac ischemia. Urinalysis will be obtained to assess for urinary tract infection. COVID-19, influenza, and RSV PCR will be obtained to assess for viral illness. Lab Data Attestation: I reviewed the patient's lab results. Lab results narrative: CBC was reviewed and was within normal limits. Comprehensive metabolic profile was reviewed and was within normal limits. PT with INR, PTT were reviewed and were within normal limits. Urinalysis was reviewed. There is no evidence of urinary tract infection or hematuria. COVID-19 PCR was reviewed and was negative. Influenza PCR was reviewed and was negative for influenza A and influenza B. RSV PCR was reviewed and was negative. Labs: Laboratory Results - last 24 hr 08/25/23 08/25/23 08/25/23 19:45 21:55 22:10 WBC 6.6 RBC 4.75 Hgb 13.8 Hct 44.8 MCV 94.3 H MCH 29.1 MCHC 30.8 L RDW Std Deviation 47.1 H RDW Coeff of [place]on 13.5 Plt Count 189 MPV 10.9 Immature Gran % (Auto) 0.300 Neut % (Auto) 73.7 H Lymph % (Auto) 15.0 L Ray % (Auto) 8.5 Eos % (Auto) 2.0 Baso % (Auto) 0.5 Absolute Neuts (auto) 4.9 Absolute Lymphs (auto) 0.99 Nucleated RBC % 0 PT 14.3 INR 1.1 APTT 35.2 Sodium 140 Potassium 4.0 Chloride 107 Carbon Dioxide 30.0 Anion Gap 3 L BUN 17 Creatinine 1.22 Estim Creat Clear Calc 67.53 Est GFR (MDRD) Af Amer 75 Est GFR (MDRD) Non-Af 62 BUN/Creatinine Ratio 13.9 Glucose 84 Calcium 9.4 Total Bilirubin 0.50 AST 20 ALT 32 Alkaline Phosphatase 64 Troponin I High Sens 11 11 Total Protein 6.9 Albumin 3.2 Globulin 3.7 Albumin/Globulin Ratio 0.9 Urine Color Yellow Urine Clarity Sl. Cloudy Urine pH 6.0 Ur Specific Story 1.020 Urine Protein 30 H Urine Glucose (UA) Normal Urine Ketones 5 H Urine Occult Blood Negative Urine Nitrite Negative Urine Bilirubin Negative Urine Urobilinogen 1 H Ur Leukocyte Esterase Negative Urine RBC 0-5 SEEN Urine WBC 0 SEEN Ur Squamous Epith Cells 0 SEEN Urine Bacteria 0 SEEN Urine Mucus 0 SEEN Radiography Diagnostic Testing: Clinical Impression(s) from Imaging Studies Brain CT 08/25/23 19:51 IMPRESSION: Involutional changes, otherwise normal CT brain for age. Electronically Signed: Sherie Nieto MD at 20:57 EST Reading Location ID and State: [id number] / [employer] , Service support , Chest X-Ray 08/25/23 20:00 IMPRESSION: Cannot exclude mild vascular congestion versus vascular crowding from decreased inspiration. Otherwise no acute cardiopulmonary disease. Electronically Signed: Sherie Nieto MD at 20:53 EST , CT scan of the brain was obtained. There is no acute intracranial abnormality. There are chronic involutional changes. This was interpreted by the radiologist and was also independently reviewed by myself. PA and lateral chest x-ray was obtained. There are 2 views. On my independent interpretation, lung sims showed questionable mild vascular congestion versus vascular crowding from decreased inspiration. There is normal cardiac silhouette. Bony thorax is normal. There is no acute process noted. Radiologist also interpreted the x-ray and agrees. EKG Initial EKG: Attestation: I personally reviewed and interpreted this EKG as follows: Interpretation: Sinus Rhythm (68) and Non-Specific ST Changes Comments: EKG was obtained. On my independent interpretation, it showed a normal sinus rhythm with a rate of 68. ME interval, QRS interval, and QTc intervals were all normal. There is left axis deviation at -31. There are nonspecific ST-T wave changes. Prior EKG tracings: available for review Prior: Unchanged (12/23/2016) Management Discussion w/another healthcare provider: Hospitalist Treatment and Re-Evaluation :: Patient was given IV fluids. Patient was feeling better on reevaluation. Patient had no further episodes of expressive aphasia here in the emergency department. Patient was advised that this is most likely a TIA. Patient was advised of the need for admission for further evaluation. Patient is reluctant but agreeable to this. Case will be discussed with the hospitalist. All questions were answered. Discharge Plan Triage Chief Complaint: Dizziness ED Provider: Woodrow Helms Dx/Rx/DC Orders Clinical Impression: Expressive aphasia, TIA (transient ischemic attack) Prescriptions: No Action multivitamin 1 EACH tablet 1 ea PO DAILY aspirin 81 MG tablet,delayed release (DR/EC) 81 mg PO DAILY Patient Comments: STOPPED ON 12/18/16 FOR PROCEDURE fluoxetine 20 MG capsule 20 mg PO DAILY ramipril 10 MG capsule 10 mg PO DAILY calcium carbonate-vitamin D3 1 EACH tablet 1 ea PO BID tamsulosin 0.4 mg capsule 0.4 mg PO DAILY Patient Comments: Clopidoxyzine pravastatin 40 mg tablet 40 mg PO QHS nitroglycerin 0.4 mg tablet, sublingual 0.4 mg SUBLINGUAL Q5M PRN (Reason: Chest Pain) Qty: 25 1RF albuterol sulfate 90 mcg/actuation HFA aerosol inhaler 2 puff INHALATION Q4H PRN (Reason: shortness of breath or wheezing) Qty: 8.5 3RF Rx Instructions: administer with spacer carvedilol 25 mg tablet 25 mg PO BID Qty: 180 3RF clopidogrel 75 mg tablet 75 mg PO DAILY Qty: 90 3RF Primary Care Provider: Sanju Guillen Referrals: Sanju Guillen MD [Primary Care Provider] - Disposition Disposition: Acute Care Hospital [facility]
--- NOTE | 2023-08-25 19:51 | CT_ITS ---
STUDY: CT BRAIN WITHOUT CONTRAST REASON FOR EXAM: Male, 73 years old. Expressive aphasia RADIATION DOSAGE (If Supplied By Facility): CTDIvol = ( 44.99 ) mGy, DLP = ( 796.11 ) mGycm TECHNIQUE: Transaxial CT imaging of the brain was performed without administration of intravenous contrast material. Individualized dose optimization techniques were used for this CT. COMPARISON: No relevant priors. FINDINGS: Normal soft tissue structures. Normal calvarium. There is mild cerebral atrophy with widening of the extra-axial spaces and ventricular dilatation. Normal white matter tracts of the cerebral hemispheres. Normal basal ganglia and thalami. Normal brainstem. Normal cerebellum. There is no intracranial hemorrhage. There are no findings of an acute ischemic infarction. Trace mucosal thickening of the left maxillary sinus, otherwise normal bilateral paranasal sinuses. Normal bilateral mastoid air cells. CT/Brain/Head without Contrast IMPRESSION: Involutional changes, otherwise normal CT brain for age. Electronically Signed: Sherie Nieto MD at 20:57 EST ,
--- NOTE | 2023-08-25 20:00 | RAD_ITS ---
STUDY: X-RAY CHEST REASON FOR EXAM: Male, 73 years old. Cough TECHNIQUE: PA and lateral views of the chest. COMPARISON: 04/29/2017. FINDINGS: There is a left-sided pacemaker in place. The lungs are underexpanded with vascular crowding and mild fullness of central vessels, cannot exclude mild vascular congestion. Minimal biapical pleural thickening with subpleural scarring, stable. Normal size heart. There are calcified lymph nodes, likely sequela of previous granulomatous infection, stable in the interval. Normal visualized pulmonary arteries. There is atherosclerotic calcification of the aortic arch with tortuosity. There are diffuse degenerative changes of the visualized thoracic spine. Normal visualized ribs, clavicles, and shoulders. There is no demonstrated abnormality of the visualized soft tissue structures of the upper abdomen. RAD/Chest PA and Lateral IMPRESSION: Cannot exclude mild vascular congestion versus vascular crowding from decreased inspiration. Otherwise no acute cardiopulmonary disease. Electronically Signed: Sherie Nieto MD at 20:53 EST ,
[2023-08-25 20:05] LABS: Absolute Lymphocyte Count 0.99 X10^3/uL (0.83-4.51); Absolute Neutrophil Count 4.9 X10^3/uL (2.0-7.7); Basophil# 0.03 X10^3/uL; Basophil% 0.5 % (0-1); Eosinophil# 0.13 X10^3/uL; Hematocrit 44.8 % (40-54); Hemoglobin 13.8 g/dL (13.0-16.5); Lymphocyte # 0.99 X10^3/ul (0.83-4.51); Mean Corp Hgb Conc 30.8 g/dL (32-36); Mean Corpuscular Hgb 29.1 pg (27.0-32.0); Mean Corpuscular Volume 94.3 fL (80-94); Mean Platelet Vol. 10.9 fl (6.2-12.0); Monocyte# 0.56 X10^3/uL; Monocyte% 8.5 % (0-10); NRBC Flagged by Analyzer 0 % (0-5); Neutrophil # 4.85 X10^3/uL (2.7-7.7); Neutrophil % 73.7 % (47-70); Platelet Count 189 K/mm3 (150-450); RBC Distribution Width CV 13.5 % (11.6-14.6); RBC Distribution Width SD 47.1 fl (35.1-43.9); Red Blood Count 4.75 M/mm3 (4.6-6.2); White Blood Count 6.6 K/mm3 (4.4-11.0)
[2023-08-25 20:16] LABS: International Normalized Ratio 1.1; Prothrombin Time (Protime)PT. 14.3 SECONDS (11.7-14.9)
[2023-08-25 20:17] LABS: Partial Thromboplast Time 35.2 Seconds (24.1-36.2)
--- OUTSIDE RECORDS SUMMARY | 2023-08-25 20:19 | XMS RPT_ITS | CCD ---
Author Name Unknown Address [address] [facility] [address] [place] [address] Organization [facility] Care Team Providers Care Rose Grading Supervisor Name Role Phone Ana Maria Guillen MD Primary Care Provider ANA MARIA GUILLEN Primary Care Unavailab ANA MARIA Ryan Referring Unavailab ANA MARIA Ryan Primary Care Unavailab ANA MARIA Ryan Referring Unavailab ANA MARIA Ryan Primary Care Unavailab ANA MARIA Ryan Attending Unavailab ROBERT Mahmood Referring Unavailable ANA MARIA GUILLEN Primary Care Unavailab ANA MARIA Ryan Primary Care Unavailab ANA MARIA Ryan Primary Care Unavailab ANA MARIA Ryan Referring Unavailab ANA MARIA Ryan Primary Care Unavailab ANA MARIA Ryan Referring Unavailab ANA MARIA Ryan Primary Care Unavailab ANA MARIA Ryan Attending Unavailab [place] Damon Attending Unavailable ANA MARIA GUILLEN Primary Care Unavailab Ana Maria Ryan MD Primary Care Provider Allergies Allergy Classification Reported Allergen(s) Allergy Type Date of Onset Reaction(s) Facility (20 sources) atorvastatin; Translations: [ATORVASTATIN] Drug Allergy 0 Intolerance [facility] (20 sources) Pollen; Translations: [POLLEN EXTRACTS] Drug Allergy 6 Other: See Comments [facility] (20 sources) Simvastatin; Translations: [SIMVASTATIN] Drug Allergy 0 Myalgia [facility] (20 sources) traZODone; Translations: [TRAZODONE] Drug Allergy 1 Other: See Comments [facility] Work Phone: (20 sources) CATH DYE [Other] Propensity to adverse reactions 5 Anaphylaxis [facility] (20 sources) Pravastatin; Translations: [PRAVASTATIN] Drug Allergy 2 Myalgia [facility] Work Phone: (3 sources) Iodine; Translations: [IODINE] Drug Allergy 4 Anaphylaxis [facility] Work Phone: (1 source) OTHER; Translations: [OTHER] Propensity to adverse reactions (disorder) 5 [facility] Repository Medications Current Medications Medication Drug Class(es) Dates Sig (Normalized) Sig (Original) [id number] 200 actuat albuterol 0.09 mg/actuat metered dose inhaler (2 sources) beta2-Adrenergic Agonist Start: 08-24-2023 End: 09-23-2023 take 2 puff(s) by inhalation every four hours as needed for wheezing albuterol HFA (VENTOLIN HFA) 90 mcg/actuation inhaler Inhale 2 Puffs as instructed every 4 hours as needed for wheezing/shortnes s of breath. 1 Each 1 08/24/2023 09/23/2023 Active Completed/Discontinued Medications Medication Drug Class(es) Dates Sig (Normalized) Sig (Original) aspirin 81 mg oral tablet (20 sources) Platelet Aggregation Inhibitor, Nonsteroidal Anti-inflammatory Drug Start: 07-11-2005 ASPIRIN 81 MG TAB Take one(1) tablet daily. 0 07/11/2005 Active Problems Active Problems Problem Classification Problem Date Documented Da te Episodic/Chronic Anxiety disorders (20 sources) Chronic anxiety; Translations: [Anxiety disorder, unspecified] Onset: 01-06-2018 01-06-2018 Chronic Cancer of prostate (20 sources) Malignant tumor of prostate; Translations: [Malignant neoplasm of prostate] Onset: 09-21-2013 09-21-2013 Chronic Cancer of prostate (1 source) History of malignant neoplasm of prostate; Translations: [Personal history of malignant neoplasm of prostate] Episodic Cardiac dysrhythmias (13 sources) Ventricular tachycardia; Translations: [Ventricular tachycardia (HCC)] Onset: 12-17-2022 Chronic Conditions associated with dizziness or vertigo (1 source) Dizziness; Translations: [Dizziness and giddiness] Episodic Congestive heart failure; nonhypertensive (14 sources) Chronic combined systolic and diastolic heart failure; Translations: [Chronic combined systolic (congestive) and diastolic (congestive) heart failure] Onset: 12-17-2022 Chronic Coronary atherosclerosis and other heart disease (20 sources) Coronary atherosclerosis; Translations: [Atherosclerotic heart disease of habematolel coronary artery without angina pectoris] Onset: 12-22-2016 Chronic Disorders of lipid metabolism (20 sources) Hyperlipidemia; Translations: [Hyperlipidemia, unspecified] Onset: 12-22-2016 Chronic Essential hypertension (20 sources) Benign essential hypertension; Translations: [Essential (primary) hypertension] Onset: 07-11-2005 Chronic Hyperplasia of prostate (4 sources) Nocturia due to benign prostatic hypertrophy; Translations: [Benign prostatic hyperplasia with lower urinary tract symptoms] Onset: 12-16-2022 Chronic Immunity disorders (20 sources) Sarcoidosis; Translations: [Sarcoidosis, unspecified] Onset: 07-27-2020 Chronic Inflammation; infection of eye (except that caused by tuberculosis or sexually transmitteddisease) (1 source) Allergic conjunctivitis of bilateral eyes; Translations: [Acute atopic conjunctivitis, bilateral] Episodic Malaise and fatigue (2 sources) Other fatigue; Translations: [Fatigue] Onset: 08-24-2023 08-24-2023 Episodic Miscellaneous mental health disorders (4 sources) Chronic insomnia; Translations: [Psychophysiologic insomnia] Chronic Nutritional deficiencies (2 sources) Vitamin D deficiency, unspecified; Translations: [Vitamin D deficiency] Onset: 08-24-2023 08-24-2023 Chronic Osteoarthritis (20 sources) Disorder of ankle joint; Translations: [Primary osteoarthritis, unspecified ankle and foot] Onset: 03-17-2013 03-17-2013 Chronic Other infections; including parasitic (1 source) Personal history of other infectious and parasitic diseases; Translations: [History of COVID-19] 08-24-2023 Episodic Other lower respiratory disease (1 source) Shortness of breath; Translations: [SOB (shortness of breath) on exertion] Onset: 08-24-2023 Episodic Other lower respiratory disease (1 source) Dyspnea on exertion; Translations: [Shortness of breath] 08-24-2023 Episodic Other male genital disorders (20 sources) Male erectile dysfunction, unspecified; Translations: [Impotence of organic origin] Onset: 03-11-2010 03-11-2010 Chronic Other non-traumatic joint disorders (2 sources) Pain in elbow; Translations: [Pain in left elbow] Episodic Other nutritional; endocrine; and metabolic disorders (18 sources) Obesity; Translations: [Obesity, unspecified] Onset: 03-17-2013 03-17-2013 Chronic Other nutritional; endocrine; and metabolic disorders (14 sources) Severe obesity; Translations: [Morbid (severe) obesity due to excess calories] Chronic Other nutritional; endocrine; and metabolic disorders (1 source) Morbid (severe) obesity due to excess calories; Translations: [Class 2 severe obesity due to excess calories with serious comorbidity and body mass index (BMI) of 36.0 to 36.9 in adult ([facility])] Onset: 12-17-2022 Chronic Other nutritional; endocrine; and metabolic disorders (1 source) Body mass index (BMI) 36.0-36.9, adult; Translations: [Class 2 severe obesity due to excess calories with serious comorbidity and body mass index (BMI) of 36.0 to 36.9 in adult ([facility])] Onset: 12-17-2022 Chronic Other skin disorders (1 source) Vesicle of skin; Translations: [Other skin changes] Episodic Spondylosis; intervertebral disc disorders; other back problems (20 sources) Degeneration of cervical intervertebral disc; Translations: [Other cervical disc degeneration, unspecified cervical region] Onset: 10-20-2011 10-20-2011 Chronic Unclassified (1 source) Acute low back pain, unspecified back pain laterality, unspecified whether sciatica present; Translations: [Acute low back pain, unspecified back pain laterality, unspecified whether sciatica present] Onset: 12-10-2022 Past or Other Problems Problem Classification Problem Date Documented Da te Episodic/Chronic Acute and unspecified renal failure (2 sources) Acute injury of kidney; Translations: [Acute kidney failure, unspecified] Onset: 12-23-2022 Episodic Genitourinary symptoms and ill-defined conditions (1 source) Nocturia; Translations: [Benign prostatic hyperplasia with nocturia] Onset: 12-16-2022 Episodic Immunizations and screening for infectious disease (20 sources) Vaccination needed; Translations: [Encounter for immunization] Onset: 06-17-2022 Episodic Other injuries and conditions due to external causes (1 source) Unspecified injury of left lower leg, initial encounter; Translations: [Injury of left knee, initial encounter] Onset: 12-10-2022 Episodic Other lower respiratory disease (20 sources) Multiple nodules of lung; Translations: [Other nonspecific abnormal finding of lung field] Onset: 12-03-2016 12-03-2016 Episodic Other non-traumatic joint disorders (2 sources) Pain in left elbow; Translations: [Elbow pain, left] Onset: 12-10-2022 Episodic Residual codes; unclassified (20 sources) Other specified health status; Translations: [Other drug allergy] Onset: 12-15-2019 12-15-2019 Episodic Results Test Name Value Interpretation Reference Range Facil ity Vital Signs Date Time Vital Sign Value Performing Clinician Faci lity 08-24-2023 13:48-0500 Body height 175.3 cm Ana Maria Guillen MD Work Phone: [facility] 08-24-2023 13:48-0500 Body weight 110.68 kg Ana Maria Guillen MD Work Phone: [facility] 08-24-2023 13:48-0500 Diastolic blood pressure 74 mm[Hg] Ana Maria Guillen MD Work Phone: [facility] 08-24-2023 13:48-0500 Heart rate 74 /min Ana Maria Guillen MD Work Phone: [facility] 08-24-2023 13:48-0500 Respiratory rate 16 /min Ana Maria Guillen MD Work Phone: [facility] 08-24-2023 13:48-0500 Systolic blood pressure 120 mm[Hg] Ana Maria Guillen MD Work Phone: [facility] 12-16-2022 14:10-0400 Body weight 105.23 kg Ana Maria Guillen MD Work Phone: [facility] 12-16-2022 14:10-0400 Diastolic blood pressure 66 mm[Hg] Ana Maria Guillen MD Work Phone: [facility] 12-16-2022 14:10-0400 Heart rate 72 /min Ana Maria Guillen MD Work Phone: [facility] 12-16-2022 14:10-0400 Respiratory rate 16 /min Ana Maria Guillen MD Work Phone: [facility] 12-16-2022 14:10-0400 SaO2% (BldA) [Mass fraction] 94 % Ana Maria Guillen MD Work Phone: [facility] 12-16-2022 14:10-0400 Systolic blood pressure 118 mm[Hg] Ana Maria Guillen MD Work Phone: [facility] 06-17-2022 10:54-0500 Body weight 104.51 kg Ana Maria Guillen MD Work Phone: [facility] 06-17-2022 10:54-0500 Diastolic blood pressure 72 mm[Hg] Ana Maria Guillen MD Work Phone: [facility] 06-17-2022 10:54-0500 Heart rate 71 /min Ana Maria Guillen MD Work Phone: [facility] 06-17-2022 10:54-0500 Respiratory rate 16 /min Ana Maria Guillen MD Work Phone: [facility] 06-17-2022 10:54-0500 SaO2% (BldA) [Mass fraction] 98 % Ana Maria Guillen MD Work Phone: [facility] 06-17-2022 10:54-0500 Systolic blood pressure 118 mm[Hg] Ana Maria Guillen MD Work Phone: [facility] 02-17-2022 16:00-0400 Body temperature 97.7 [degF] Brisa Layton APRN.VIDEO GAME DESIGNER Work Phone: [facility] 02-17-2022 16:00-0400 Body weight 104.87 kg Brisa Layton APRN.VIDEO GAME DESIGNER Work Phone: [facility] 02-17-2022 16:00-0400 Diastolic blood pressure 80 mm[Hg] Brisa Layton APRN.VIDEO GAME DESIGNER Work Phone: [facility] 02-17-2022 16:00-0400 Heart rate 88 /min Brisa Layton APRN.VIDEO GAME DESIGNER Work Phone: [facility] 02-17-2022 16:00-0400 Respiratory rate 20 /min Brisa Layton APRN.VIDEO GAME DESIGNER Work Phone: [facility] 02-17-2022 16:00-0400 SaO2% (BldA) [Mass fraction] 93 % Brisa Layton APRN.VIDEO GAME DESIGNER Work Phone: [facility] 02-17-2022 16:00-0400 Systolic blood pressure 116 mm[Hg] Brisa Layton COPYMAN.VIDEO GAME DESIGNER Work Phone: [facility] 01-28-2022 13:00-0400 Body temperature 97.7 [degF] Zulema Athy PA-C Work Phone: [facility] 01-28-2022 13:00-0400 Body weight 107.41 kg Zulema Athy PA-C Work Phone: [facility] 01-28-2022 13:00-0400 Diastolic blood pressure 82 mm[Hg] Zulema Athy PA-C Work Phone: [facility] 01-28-2022 13:00-0400 Heart rate 76 /min Zulema Athy PA-C Work Phone: [facility] 01-28-2022 13:00-0400 Respiratory rate 16 /min Zulema Athy PA-C Work Phone: [facility] 01-28-2022 13:00-0400 SaO2% (BldA) [Mass fraction] 95 % Zulema Athy PA-C Work Phone: [facility] 01-28-2022 13:00-0400 Systolic blood pressure 110 mm[Hg] Zulema Athy PA-C Work Phone: [facility] 12-06-2021 08:15-0400 Body weight 110.5 kg Molly Gaines COPYMAN.[employer] G[employer] DES[employer] Work Phone: [facility] 12-06-2021 08:15-0400 Diastolic blood pressure 70 mm[Hg] Molly Delcidlogcarmina COPYMAN.[employer] DES[employer] Work Phone: [facility] 12-06-2021 08:15-0400 Heart rate 78 /min Molly Podlogar COPYMAN.[employer] G[employer] DES[employer]ER Work Phone: [facility] 12-06-2021 08:15-0400 Respiratory rate 20 /min Molly Podlogar COPYMAN.[employer] G[employer] DES[employer] Work Phone: [facility] 12-06-2021 08:15-0400 SaO2% (BldA) [Mass fraction] 95 % Molly Podlogar COPYMAN.V[employer] GAME DESIGNER Work Phone: [facility] 12-06-2021 08:15-0400 Systolic blood pressure 122 mm[Hg] Molly Podlogar COPYMAN.V[employer] G[employer] DESIGNER Work Phone: [facility] Encounters Encounter Date Encounter Type Care Provider Facility Start: 08-24-2023 End: 08-25-2023 ambulatory ANA MARIA GUILLEN Facility:[facility] Start: 08-24-2023 Telephone encounter Sanju Guillen MD Work Phone: [facility] Procedures Date Procedure Procedure Detail Performing Clinician Start: 12-16-2022 Lipid 1996 panel - S kendal or Plasma Ana Maria Guillen MD Work Phone: Start: 06-17-2022 Mbite-BIONTRUN COVI D-19 BIVALENT BOOSTER VACCINE, AGE 12+ YR Ana Maria Guillen MD Work Phone: Start: 05-01-2021 Adult depression screening assessment Molly Gaines COPYMAN.[employer] Work Phone: Start: 08-23-2018 Colonoscopy Molly dozier COPYMAN.[employer] G[employer] DESIGNER Work Phone: Plan of Treatment Date Care Activity Detail Author Start: 08-23-2028 Colonoscopy COLONOSCOPY [facility] Start: 08-23-2028 COLORECTAL CANCER SCREENING COLORECTAL CANCER SCREENING [facility] Start: 08-23-2028 Screening for malignant neoplasm of colon [facility] Start: 12-17-2027 Lipid 1996 panel - Serum or Plasma Lipid Screening [facility] Start: 12-17-2027 Lipid panel Lipid Screening [facility] Start: 12-17-2027 LIPID SCREEN LIPID SCREEN [facility] Start: 06-17-2027 LIPID SCREEN LIPID SCREEN [facility] Start: 09-18-2026 LIPID SCREEN LIPID SCREEN [facility] Start: 08-24-2026 Diabetes Screening Diabetes Screening [facility] Start: 12-23-2025 DIABETES SCREEN DIABETES SCREEN [facility] Start: 12-23-2025 Diabetes Screening Diabetes Screening [facility] Start: 12-17-2025 Urine microalbumin profile [facility] Start: 12-16-2025 DIABETES SCREEN DIABETES SCREEN [facility] Start: 06-17-2025 DIABETES SCREEN DIABETES SCREEN [facility] Start: 08-24-2024 Annual PCP Team Chronic Disease Visit Annual PCP Team Chronic Disease Visit [facility] Start: 08-24-2024 BP Controlled (<130/80) BP Controlled (<130/80) [facility] Start: 05-01-2024 DIABETES SCREEN DIABETES SCREEN [facility] Start: 12-17-2023 ANNUAL PCP TEAM CHRONIC DISEASE VISIT ANNUAL PCP TEAM CHRONIC DISEASE VISIT [facility] Start: 12-17-2023 BP CONTROLLED (<130/80) BP CONTROLLED (<130/80) [facility] Start: 12-17-2023 Hepatitis B surface antibody level LDL CHOLESTEROL [facility] Start: 2023 Advance Directive Discussion Advance Directive Discussion [facility] Start: 2023 Depression Assessment Depression Assessment [facility] Start: 06-17-2023 ANNUAL PCP TEAM CHRONIC DISEASE VISIT ANNUAL PCP TEAM CHRONIC DISEASE VISIT [facility] Start: 06-17-2023 BP CONTROLLED (<130/80) BP CONTROLLED (<130/80) [facility] Start: 06-17-2023 Hepatitis B surface antibody level LDL CHOLESTEROL [facility] Start: 03-20-2023 Covid-19 Vaccine ( season) Covid-19 Vaccine ( season) [facility] Start: 03-20-2023 Influenza vaccination [facility] Start: 12-17-2022 End: 02-16-2023 Comprehensive metabolic 2000 panel - Serum or Plasma COMP METABOLIC PANEL Lab Routine NANI (acute kidney injury) (HCC) Expected: 12/17/2022, Expires: 02/16/2023 [facility] Work Phone: Immunizations Immunization Date Immunization Notes Care Provider Fa cility 06-17-2022 COVID-19 booster vaccine, age 12+ yr, bivalent (PFIZER-BIONTECH) Ana Maria Guillen MD Work Phone: [facility] 03-11-2022 influenza (aIIV4) vaccine, age 65+ yr, quadrivalent, PF (FLUAD QUADRIVALENT) Ana Maria Guillen MD Work Phone: [facility] 03-11-2022 influenza virus vaccine, unspecified formulation Ana Maria Guillen MD Work Phone: [facility] 01-06-2022 COVID-19 vaccine, booster dose (MODERNA) Ana Maria Guillen MD Work Phone: [facility] 05-01-2021 influenza, high-dose , quadrivalent vaccine (FLUZONE HIGH DOSE QUADRIVALENT) Molly Podlogar COPYMAN.V[employer] GAME DESIGNER Work Phone: [facility] 10-03-2020 COVID-19 vaccine, fu ll dose (MODERNA) Molly Podlogar COPYMAN.[employer] G[employer] DESIGN[employer] Work Phone: [facility] 09-05-2020 COVID-19 vaccine, fu ll dose (MODERNA) Molly Podlogar COPYMAN.[employer] G[employer] DESIGN[employer] Work Phone: [facility] 06-04-2020 influenza, high-dose , quadrivalent vaccine (FLUZONE HIGH DOSE QUADRIVALENT) Molly Podlogar COPYMAN.[employer] DES[employer] Work Phone: [facility] Work Phone: 05-23-2019 influenza, high dose seasonal, preservative-free Molly Podlogar COPYMAN.[employer] DES[employer] Work Phone: [facility] 12-16-2018 zoster vaccine recombinant Molly Podlogar COPYMAN.[employer] Work Phone: [facility] 07-06-2018 influenza, high dose seasonal, preservative-free Molly Podlogar COPYMAN.[employer] Work Phone: [facility] 07-06-2018 pneumococcal polysaccharide vaccine, 23 valent Molly Podlogar COPYMAN.[employer] Work Phone: [facility] 07-06-2018 Seasonal trivalent influenza vaccine, adjuvanted, preservative free Molly Podlogar COPYMAN.[employer] Work Phone: [facility] Work Phone: 05-25-2018 zoster vaccine recombinant Molly Podlogar COPYMAN.[employer] Work Phone: [facility] 06-18-2017 influenza, high dose seasonal, preservative-free Molly Podlogar COPYMAN.[employer] DES[employer] Work Phone: [facility] 06-18-2017 influenza, seasonal, injectable, preservative free Molly Podlogar COPYMAN.[employer] DES[employer] Work Phone: [facility] Work Phone: 06-18-2017 pneumococcal conjuga te vaccine, 13 valent Molly Podlogar COPYMAN.[employer] DES[employer] Work Phone: [facility] 09-18-2016 pneumococcal conjuga te vaccine, 13 valent Molly Podlogar COPYMAN.[employer] Work Phone: [facility] 12-18-2015 tetanus and diphther ia toxoids, adsorbed, preservative free, for adult use (5 Lf of tetanus toxoid and 2 Lf of diphtheria toxoid) Molly Podlogar COPYMAN.[facility] Work Phone: [facility] 03-02-2009 tetanus toxoid, redu sherice diphtheria toxoid, and acellular pertussis vaccine, adsorbed Molly Podlogar COPYMAN.[facility] Work Phone: [facility] Payers Date Payer Category Payer Private Health Insurance [facility] AARP SUPPLEMENT [id number] 2017-Present [phone] [address] [place] [address] Indemnity [id number] 2017 Private Health Insurance [facility] AARP SUPPLEMENT [id number] 2017-Present [phone] [address] [place] [address] Indemnity [id number] 2017 Unknown [id number] 2016 Medicare MEDICARE MEDICAR E A AND B [id number] 2016-Present [phone] [place] [address] Medicare [id number] 2016 Medicare MEDICARE MEDICAR E A AND B [id number] 2016-Present [phone] [place] [address] Medicare [id number] 2016 Medicare [id number] Social History Date Type Detail Facility Start: 09-26-2011 End: 06-17-2022 Tobacco smoking status NHIS Never smoked tobacco [facility] Start: 09-26-2011 End: 06-17-2022 Tobacco use and exposure Smokeless tobacco non-user [facility] Start: 12-06-2021 End: 08-24-2023 Alcohol intake Current drinker of alcohol (finding) [facility] Start: 12-06-2021 End: 12-16-2022 Alcohol intake [facility] Start: 12-14-2019 History SDOH Alcohol Frequency 5 [facility] Start: 12-14-2019 End: 07-25-2020 History SDOH Alcohol Std Drinks 1 [facility] Start: 12-14-2019 History SDOH Alcohol Binge 3 [facility] Start: 12-14-2019 History SDOH Social Connections Get Together 4 [facility] Start: 12-14-2019 End: 07-25-2020 History SDOH Physical Activity DPW 2 [facility] Start: 12-14-2019 Education 15 [facility] Start: 1950 Sex Assigned At Not on file [facility] Start: 11-25-2021 End: 06-17-2022 Exposure to SARS-CoV-2 (event) Not sure [facility] Start: 07-25-2020 End: 12-16-2022 Tobacco use panel [facility] National Score (1-10 0), lower number is lower risk 75 [facility] Do you belong to any clubs or organizations such as anabaptist groups, unions, fraternal or athletic groups, or school groups? Yes [facility] Are you now , , , , never or living with a partner? [facility] How often to you hav e a drink containing alcohol? 4 or more times a week [facility] [facility] How many standard dr inks containing alcohol do you have on a typical day? 1 or 2 [facility] How often do you hav e 6 or more drinks on 1 occasion? Monthly [facility] Do you feel stress - tense, restless, nervous, or anxious, or unable to sleep at night because your mind is troubled all the time - these days [OSQ] To some extent [facility] (I/We) worried whenuzhat er (my/our) food would run out before (I/we) got money to buy more. Never true [facility] In the past 12 month s, was there a time when you were not able to pay the mortgage or rent on time? No [facility] How often do you hav e 6 or more drinks on 1 occasion? Monthly [facility] Clinical Notes 02-04-2011 to 08-24-2023 Telephone Encounter - Marissa Thompson RN - 08/24/2023 4:55 PM ESTTelephone Encounter - Marissa Thompson RN - 08/24/2023 4:54 PM Ana Maria Jimenez MD - 08/24/2023 1:49 PM EST Note Date & Type Note Facility 08-24-2023 Note HNO ID: [id number] Author: NINA MARISCAL RT(R) Service: Radiology Author Type: Technologist Type: Progress Notes Filed: 08/24/2023 15:07 Note Text: Radiology Service Progress Note PATIENT NAME: Mlacolm Ho DATE OF SERVICE: August 24, 2023 TIME: 2:53 PM PATIENT IDENTITY VERIFICATION COMPLETED USING TWO (2) IDENTIFIERS: Name and Date of confirmed by patient verbally. FALL SCREENING: Has the patient had 2 falls in the last year or 1 fall with injury or currently using an Ambulatory Assistive Device (Walker, Cane, Wheelchair, Crutches, etc.)? No PATIENT GENDER DATA: Male PATIENT RELEVANT IMPLANT DATA REVIEWED: Yes PATIENT PRESENTS WITH AN IMPLANTABLE OR ATTACHED PREKINDERGARTEN TEACHER: No RADIOLOGY DEPARTMENT: General X-ray: Exam(s) Completed: Chest X-Ray PERIPHERAL IV DATA: Not applicable SIGNED BY: Nina Mariscal RT(R) August 24, 2023 2:[address] [facility] 08-24-2023 Miscellaneous Notes Pt called and is notified of results and given providers message. Pt voices understanding. ----- Message from Ana Maria Guillen MD sent at 08/24/2023 4:43 PM EST ----- Chest xray negative for new consolidation or lung mass. Bilateral scarring and opacities noted which are likely due to inflammation. No pneumonia noted on this imaging. Continue treatment as discussed. documented in this encounter [facility] 08-24-2023 History of Presen t illness Narrative Chief Complaint Patient presents with: Follow Up: Discuss post covid issues/symptoms HPI Malcolm Ho is a 73 year old male who presents here today for Above Complaints.. Patient states that he was ill with COVID back in June and since then he has continued to have fatigue and feels short winded with occasional wheezing. Thinks that his increasing weight may be contributing to his SOB. He also has known CHF and sarcoidosis which has effected his breathing chronically. Admits to dry cough. Denies fever/chills, chest pain, palpitations, LE swelling, orthopnea. Follow up appointment with cardiology in September. Next appointment with pulmonology at [facility] is not for several months. He has not spoken to either of them about these symptoms. Symptoms gradually improving. Refusing EKG. Past medical history, appointments, medications, allergies reviewed. Previous Medical History PAST MEDICAL HISTORY Diagnosis Date Acute myocardial infarction of other specified sites Myocardial Infarction(2004, 1992) Atherosclerotic heart disease of habematolel coronary artery without angina pectoris BPH (benign prostatic hyperplasia) 03/11/2010 Chronic systolic congestive heart failure (HCC) EF 30% 09/2020 Degenerative cervical spinal stenosis 09/26/2011 Degenerative disc disease, cervical 10/20/2011 Diverticulosis of colon (without mention of hemorrhage) Diverticulosis Erectile dysfunction 03/11/2010 Essential hypertension, benign Generalized anxiety disorder Hemorrhage of gastrointestinal tract, unspecified Hemorrhage of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 prostatic hyperplasia) 03/11/2010 Chronic systolic congestive heart failure (HCC) EF 30% 09/2020 Degenerative cervical spinal stenosis 09/26/2011 Degenerative disc disease, cervical 10/20/2011 Diverticulosis of colon (without mention of hemorrhage) Diverticulosis Erectile dysfunction 03/11/2010 Essential hypertension, benign Generalized anxiety disorder Hemorrhage of gastrointestinal tract, unspecified Hemorrhage of rectum and anus History of COVID-19 History of prostate cancer [address] Treadwell Ischemic cardiomyopathy Dr. Dial Obesity 03/17/2013 Other and unspecified hyperlipidemia Presence of automatic cardioverter/defibrillator (AICD) Rupture of left Achilles tendon Shingles Unspecified hemorrhoids without mention of complication Hemorrhoids Previous Surgical History PAST SURGICAL HISTORY Procedure Laterality Date ARTHROSCOPY KNEE DIAGNOSTIC W/WO SYNOVIAL BX SPX Arthroscopy, knee COLONOSCOPY FLX DX W/COLLJ SPEC WHEN PFRMD 08/[address] French-recommended repeat was 7 years which makes him due 2025 COLONOSCOPY FLX DX W/COLLJ SPEC WHEN PFRMD 06/05/2008 PAST SURGICAL HISTORY OF fusion right ankle with plates and screws PAST SURGICAL HISTORY OF 2013 Radioactive seeds for prostate cancer PAST SURGICAL HISTORY OF Left 1990 achilles tendon tear repair RPR 1ST INGUN HRNA AGE 6 YRS/> REDUCIBLE Hernia repair, inguinal RPR/TRAUMATIC AV FISTULA EXTREMITIES 12/30/2005 RIGHT GROIN Family History FAMILY HISTORY Problem Relation Age of Onset Stroke Mother Hypertension Mother Diabetes Mother WITH RENAL FAILURE Cataract Mother Stroke Father Prostate Cancer Father Heart Father Kidney Disease Sister Diabetes Sister Kidney Disease Sister polycystic kidney disease No Known Problems Son No Known Problems Daughter Patient Allergies ALLERGIES Allergen Reactions Cath Dye [Other] Anaphylaxis Lipitor [Atorvastat* Intolerance Myalgia Pollen Extracts Other: See Comments eyes, chest Trazodone Other: See Comments Lightheaded Zocor [Simvastatin] Myalgia Current Medications Current Outpatient Medications on File Prior to Visit Medication Sig ramipril (ALTACE) 10 mg capsule Take 1 capsule by mouth once daily. hydrOXYzine pamoate (VISTARIL) 25 mg capsule Take 1 capsule by mouth at bedtime as needed (insomnia). tamsulosin (FLOMAX) 0.4 mg Take 1 capsule by mouth once daily. olopatadine (PATADAY TWICE DAILY RELIEF) 0.1 % ophthalmic solution Use 1 Drop in both eyes twice daily. FLUoxetine (PROZAC) 20 mg capsule Take 1 capsule by mouth once daily. nitroglycerin sublingual (NITROQUICK) 0.4 mg SL tablet Dissolve 1 tablet under the tongue every 5 minutes as needed for chest pain. CALCIUM CARBONATE/VITAMIN D3 (CALCIUM + D ORAL) Take 5 tablets by mouth once daily. PLAVIX 75 MG TAB Take one(1) tablet daily. COREG 25 MG TAB Take one(1) tablet two(2) times daily. ASPIRIN 81 MG TAB Take one(1) tablet daily. DAILY MULTIVITAMIN TAB Take one(1) tablet daily. pravastatin (PRAVACHOL) 40 mg tablet Take 1 tablet by mouth daily at bedtime. scopolamine (TRANSDERM-SCOP) patch 1.5 mg/72 hr (1 mg over 3 days) Apply 1 Patch as directed every 72 hours. Apply patch to skin behind ear 4hrs prior to travel. No current facility-administered medications on file prior to visit. Social History Social History Tobacco Use Smoking status: Never Smokeless tobacco: Never Substance Use Topics Alcohol use: Yes Alcohol/week: 14.0 standard drinks Types: 14 Cans of Beer (12oz) per week Comment: occasionally Drug use: No Review of Symptoms REVIEW OF SYSTEMS GENERAL: No weight loss, malaise or fevers RESPIRATORY: Negative for cough, hemoptysis, wheezing, COPD, dyspnea or shortness of breath CARDIOVASCULAR: Negative for chest pain, hypertension, CHF or palpitations. Admits to stable chronic ankle swelling since surgeries. GI: No nausea, vomiting, or diarrhea SKIN: Negative for lesions, rash, and itching EXAM: BP 118/72 Pulse 71 Resp 16 Wt 104.5 kg (230 lb 6.4 oz) SpO2 98% BMI 36.09 kg/m General Appearance: Well appearing, alert, in no acute distress, well-hydrated, well nourished.. Skin: Skin color, texture, turgor normal, no suspicious rashes or lesions. Lungs: Lungs clear to auscultation. No wheezing, rhonchi, rales.. Heart: RRR without murmur, gallop, or rubs. No ectopy. Abdomen: Normal abdominal exam, Abdomen soft, non-tender. Bowel sounds normal. No masses, organomegaly. Extremities: No deformities, edema, skin discoloration, clubbing or cyanosis. Good capillary refill. . Health Maintenance List ADVANCE DIRECTIVE DISCUSSION Never done DEPRESSION ASSESSMENT Never done COVID-19 VACCINE(5 - Booster for Moderna series) due on 03/03/2022 LDL CHOLESTEROL due on 09/18/2022 ANNUAL PCP TEAM CHRONIC DISEASE VISIT due on 12/06/2022 BP CONTROLLED (<130/80) due on 12/06/2022 DIABETES SCREEN due on 05/01/2024 DTAP,TDAP,TD(3 - Td or Tdap) due on 12/17/2025 LIPID SCREEN due on 09/18/2026 COLORECTAL CANCER SCREENING due on 08/23/2028 INFLUENZA Completed HEPATITIS C SCREENING Completed SHINGRIX VACCINE Completed PNEUMOCOCCAL: 65+ Completed Data reviewed Component Latest Ref Rng & Units 05/01/2021 09/18/2021 Protein, Total 6.3 - 8.0 g/dL 6.3 Albumin 3.9 - 4.9 g/dL 3.8 (L) Calcium 8.5 - 10.2 mg/dL 9.9 Bilirubin, Total 0.2 - 1.3 mg/dL 0.4 Alkaline Phosphatase 38 - 113 U/L 68 AST 14 - 40 U/L 18 Glucose 74 - 99 mg/dL 89 BUN 9 - 24 mg/dL 17 Creatinine 0.73 - 1.22 mg/dL 1.08 Sodium 136 - 144 mmol/L 138 Potassium 3.7 - 5.1 mmol/L 4.4 Chloride 97 - 105 mmol/L 103 CO2 22 - 30 mmol/L 27 Anion Gap 9 - 18 mmol/L 8 (L) ALT 10 - 54 U/L 25 eGFR- >60 eGFR-All Other Races . >60 WBC 3.70 - 11.00 k/uL 5.57 RBC 4.20 - 6.00 m/uL 4.65 Hemoglobin 13.0 - 17.0 g/dL 13.9 Hematocrit 39.0 - 51.0 % 43.7 MCV 80.0 - 100.0 fL 94.0 MCH 26.0 - 34.0 pG 29.9 MCHC 30.5 - 36.0 g/dL 31.8 RDW-CV 11.5 - 15.0 % 13.5 Platelet Count 150 - 400 k/uL 202 MPV 9.0 - 12.7 fL 11.1 Absolute nRBC <0.01 k/uL <0.01 Total Cholesterol, Nonfasting <200 mg/dL 187 152 Triglycerides, Nonfasting <150 mg/dL 87 65 HDL Cholesterol, Nonfasting >39 mg/dL 45 37 (L) LDL Cholesterol, Nonfasting <100 mg/dL 125 (H) 102 (H) Non HDL Cholesterol, Nonfasting <130 mg/dL 142 (H) 115 VLDL Cholesterol, Nonfasting <30 mg/dL 17 13 Total Chol/HDL Ratio, Nonfasting <5.10 mg/dL 4.16 4.11 LDL/HDL Ratio, Nonfasting <2.54 mg/dL 2.78 (H) 2.76 (H) Hep C Antibody IA Negative Negative ASSESSMENT/PLAN: 1. Atherosclerosis of habematolel coronary artery of habematolel heart without angina pectoris - ICD9: 414.01, ICD10: I25.10 (primary diagnosis) Asymptomatic on medical management. Unable to tolerate statins. Will recheck lipid panel. If LDL elevated >70, recommend PCSK9 which he would be willing to try. Discussed low cholesterol/sodium diet. Red flags for re-assessment reviewed with patient in detail. - COMP METABOLIC PANEL - LIPID PANEL, NONFASTING 2. Class 2 severe obesity due to excess calories with serious comorbidity and body mass index (BMI) of 36.0 to 36.9 in adult (HCC) - ICD9: 278.01, V85.36, ICD10: E66.01, Z68.36 Stable - Behavioral intervention 3. Benign prostatic hyperplasia with nocturia - ICD9: 600.01, 788.43, ICD10: N40.1, R35.1 Controlled on flomax. Recheck PSA for history of prostate cancer. - TAMSULOSIN 0.4 MG CAPSULE 4. Essential hypertension, benign - ICD9: 401.1, ICD10: I10 - good control - Continue current medication(s) - Encouraged dietary sodium restriction/DASH diet - Recommended regular aerobic exercise. - Reviewed risks of HTN and principles of treatment - Goal of BP <130/80 5. Hyperlipidemia LDL goal <100 - ICD9: 272.4, ICD10: E78.5 - to be determined upon return of lab results - Encouraged following a low fat, low cholesterol diet. - Discussed the benefits of regular aerobic exercise and weight loss. 6. History of prostate cancer - ICD9: V10.46, ICD10: Z85.46 - PSA/PROSTSPECAG DIAG 7. Statin intolerance - ICD9: 995.27, ICD10: Z78.9 8. Sarcoidosis - ICD9: 135, ICD10: D86.9 F/u with pulmonology. Asymptomatic today. 9. Chronic anxiety - ICD9: 300.00, ICD10: F41.9 Controlled on SSRI. 10. Need for COVID-19 vaccine - ICD9: V04.89, ICD10: Z23 - PFIZER-BIONTECH COVID-19 BIVALENT BOOSTER VACCINE, AGE 12+ YR Ana Maria Guillen MD documented in this encounter [facility] 05-21-2022 Miscellaneous Notes Spoke with pt and information listed below given. Pt verbalizes understanding. Apt booked. Luisa Urrutia LPN Patient is due for six moth following at the end of the month. Please assist in scheduling. Molly Gaines APRN.VIDEO GAME DESIGNER No upcoming appointment scheduled. Kate Blankenship LPN Patient has been identified by name and date of : Yes Last office visit in this department: 12/06/2021 RX INSTRUCTIONS: Patient aware RX will be sent to pharmacy. No need to notify patient. Patient phones requesting refills as follows: Requested Prescriptions Pending Prescriptions Disp Refills ramipril (ALTACE) 10 mg capsule 90 capsule 1 Sig: Take 1 capsule by mouth once daily. Please review and advise. Kimberlyn Daniels Pss documented in this encounter [facility] 04-21-2022 Miscellaneous Notes Last office visit: 12/06/21 F/u scheduled: none Kathy Armas Ma Patient has been identified by name and date of : Yes Requested Prescriptions Pending Prescriptions Disp Refills hydrOXYzine pamoate (VISTARIL) 25 mg capsule 90 capsule 1 Sig: Take 1 capsule by mouth at bedtime as needed (insomnia). RX INSTRUCTIONS: Patient aware RX will be sent to pharmacy. No need to notify patient. Mervat Meraz [employer] documented in this encounter [facility] 02-27-2022 Miscellaneous Notes Last office visit: 12/06/21 F/u scheduled: none Kathy Armas Ma Patient has been identified by name and date of : Yes Requested Prescriptions Pending Prescriptions Disp Refills tamsulosin (FLOMAX) 0.4 mg 90 capsule 1 Sig: Take 1 capsule by mouth once daily. RX INSTRUCTIONS: Patient aware RX will be sent to pharmacy. No need to notify patient. Maria G Byrd Pss documented in this encounter [facility] 02-18-2022 Miscellaneous Notes Notified patient of positive herpes results. Patient will follow up if anything worsens. Patient is past the treatment time frame and is aware of this. documented in this encounter [facility] 02-17-2022 History of Presen t illness Narrative Images from the original note were not included. Subjective Patient came in with complaints of uncomfortable rash in middle of his back said this is day 10 of the rash. Denies any other symptoms or exposures. Patient has tried some over the counter creams with no success. Said the rash has not spread from the initial area. The history is provided by the patient. No official court interpreter was used. Review of Systems Constitutional: Negative. Objective Physical Exam Constitutional: Appearance: Normal appearance. Pulmonary: Effort: Pulmonary effort is normal. Skin: Comments: Patient has vesicular pustules in area marked above about 6 of them and one scabbed area. No signs of infection. Neurological: Mental Status: He is alert. PAST MEDICAL HISTORY Diagnosis Date Acute myocardial infarction of other specified sites Myocardial Infarction(2004, 1992) Atherosclerotic heart disease of habematolel coronary artery without angina pectoris BPH (benign prostatic hyperplasia) 03/11/2010 Chronic systolic congestive heart failure (HCC) EF 30% 09/2020 Degenerative cervical spinal stenosis 09/26/2011 Degenerative disc disease, cervical 10/20/2011 Diverticulosis of colon (without mention of hemorrhage) Diverticulosis Erectile dysfunction 03/11/2010 Essential hypertension, benign Generalized anxiety disorder Hemorrhage of gastrointestinal tract, unspecified Hemorrhage of rectum and anus History of COVID-19 History of prostate cancer [address] Treadwell Ischemic cardiomyopathy Dr. Dial Obesity 03/17/2013 Other and unspecified hyperlipidemia Presence of automatic cardioverter/defibrillator (AICD) Rupture of left Achilles tendon Shingles Unspecified hemorrhoids without mention of complication Hemorrhoids PAST SURGICAL HISTORY Procedure Laterality Date ARTHROSCOPY KNEE DIAGNOSTIC W/WO SYNOVIAL BX SPX Arthroscopy, knee COLONOSCOPY FLX DX W/COLLJ SPEC WHEN PFRMD 08/[address] French-recommended repeat was 7 years which makes him due 2025 COLONOSCOPY FLX DX W/COLLJ SPEC WHEN PFRMD 06/05/2008 PAST SURGICAL HISTORY OF fusion right ankle with plates and screws PAST SURGICAL HISTORY OF 2013 Radioactive seeds for prostate cancer PAST SURGICAL HISTORY OF Left 1990 achilles tendon tear repair RPR 1ST INGUN HRNA AGE 6 YRS/> REDUCIBLE Hernia repair, inguinal RPR/TRAUMATIC AV FISTULA EXTREMITIES 12/30/2005 RIGHT GROIN ALLERGIES Cath Dye [Other], Lipitor [Atorvastatin], Pollen Extracts, Trazodone, and Zocor [Simvastatin] MEDICATIONS olopatadine (PATADAY TWICE DAILY RELIEF) 0.1 % ophthalmic solution Use 1 Drop in both eyes twice daily. FLUoxetine (PROZAC) 20 mg capsule Take 1 capsule by mouth once daily. nitroglycerin sublingual (NITROQUICK) 0.4 mg SL tablet Dissolve 1 tablet under the tongue every 5 minutes as needed for chest pain. hydrOXYzine pamoate (VISTARIL) 25 mg capsule Take 1 capsule by mouth at bedtime as needed (insomnia). ramipril (ALTACE) 10 mg capsule TAKE 1 CAPSULE BY MOUTH DAILY tamsulosin (FLOMAX) 0.4 mg Take 1 capsule by mouth once daily. pravastatin (PRAVACHOL) 40 mg tablet Take 1 tablet by mouth daily at bedtime. scopolamine (TRANSDERM-SCOP) patch 1.5 mg/72 hr (1 mg over 3 days) Apply 1 Patch as directed every 72 hours. Apply patch to skin behind ear 4hrs prior to travel. CALCIUM CARBONATE/VITAMIN D3 (CALCIUM + D ORAL) Take 5 tablets by mouth once daily. PLAVIX 75 MG TAB Take one(1) tablet daily. COREG 25 MG TAB Take one(1) tablet two(2) times daily. ASPIRIN 81 MG TAB Take one(1) tablet daily. DAILY MULTIVITAMIN TAB Take one(1) tablet daily. FAMILY HISTORY Problem Relation Age of Onset Stroke Mother Hypertension Mother Diabetes Mother WITH RENAL FAILURE Cataract Mother Stroke Father Prostate Cancer Father Heart Father Kidney Disease Sister Diabetes Sister Kidney Disease Sister polycystic kidney disease No Known Problems Son No Known Problems Daughter Social History Tobacco Use Smoking status: Never Smoker Smokeless tobacco: Never Used Substance Use Topics Alcohol use: Yes Alcohol/week: 14.0 standard drinks Types: 14 Cans of Beer (12oz) per week Comment: occasionally Drug use: No ASSESSMENT/PLAN: 1. Vesicle of skin - ICD9: 709.8, ICD10: R23.8 - HSV 1,2/VZV AMP MOLECULAR DETECT At this time it has been to long for the antivirals. Patient vesicle was swabbed and send off for culture. Patient will be called with results. Tested for shingles. Patient was educated about risk factors in spreading this if it is shingles. Patient understands and is okay with this care plan. Brisa Layton APRN.ANJELICA documented in this encounter [facility] 01-28-2022 History of Presen t illness Narrative This note was created using [employer]. Subjective Malcolm Ho is a 71 year old male. HPI Patient presents with itchy burning watery eyes for a week. He states he has a history of allergy eyes and this feels similar. He was using some saline drops and another drop but he had run out of it. He has seen ophthalmology for this previously. He is not sure what they had prescribed. He is on Vistaril right now that he takes at night for anxiety. Review of Systems Constitutional: Negative. HENT: Negative. Eyes: Positive for pain, discharge, redness and itching. Negative for photophobia and visual disturbance. Respiratory: Negative. Cardiovascular: Negative. Gastrointestinal: Negative. Genitourinary: Negative. Musculoskeletal: Negative. All other systems reviewed and are negative. PAST MEDICAL HISTORY Diagnosis Date Acute myocardial infarction of other specified sites Myocardial Infarction(2004, 1992) Atherosclerotic heart disease of habematolel coronary artery without angina pectoris BPH (benign prostatic hyperplasia) 03/11/2010 Chronic systolic congestive heart failure (HCC) EF 30% 09/2020 Degenerative cervical spinal stenosis 09/26/2011 Degenerative disc disease, cervical 10/20/2011 Diverticulosis of colon (without mention of hemorrhage) Diverticulosis Erectile dysfunction 03/11/2010 Essential hypertension, benign Generalized anxiety disorder Hemorrhage of gastrointestinal tract, unspecified Hemorrhage of rectum and anus History of COVID-19 History of prostate cancer [address] Treadwell Ischemic cardiomyopathy Dr. Dial Obesity 03/17/2013 Other and unspecified hyperlipidemia Presence of automatic cardioverter/defibrillator (AICD) Rupture of left Achilles tendon Shingles Unspecified hemorrhoids without mention of complication Hemorrhoids Current Outpatient Medications Medication Sig Dispense Refill FLUoxetine (PROZAC) 20 mg capsule Take 1 capsule by mouth once daily. 90 capsule 1 nitroglycerin sublingual (NITROQUICK) 0.4 mg SL tablet Dissolve 1 tablet under the tongue every 5 minutes as needed for chest pain. 1 Bottle of 25 5 hydrOXYzine pamoate (VISTARIL) 25 mg capsule Take 1 capsule by mouth at bedtime as needed (insomnia). 90 capsule 1 ramipril (ALTACE) 10 mg capsule TAKE 1 CAPSULE BY MOUTH DAILY 90 capsule 1 tamsulosin (FLOMAX) 0.4 mg Take 1 capsule by mouth once daily. 90 capsule 1 scopolamine (TRANSDERM-SCOP) patch 1.5 mg/72 hr (1 mg over 3 days) Apply 1 Patch as directed every 72 hours. Apply patch to skin behind ear 4hrs prior to travel. 3 Patch 0 CALCIUM CARBONATE/VITAMIN D3 (CALCIUM + D ORAL) Take 5 tablets by mouth once daily. PLAVIX 75 MG TAB Take one(1) tablet daily. 0 COREG 25 MG TAB Take one(1) tablet two(2) times daily. 0 ASPIRIN 81 MG TAB Take one(1) tablet daily. 0 DAILY MULTIVITAMIN TAB Take one(1) tablet daily. 0 olopatadine (PATADAY TWICE DAILY RELIEF) 0.1 % ophthalmic solution Use 1 Drop in both eyes twice daily. 5 mL 0 predniSONE (DELTASONE) 20 mg tablet Take 2 tablets by mouth once daily for 5 days. 10 tablet 0 pravastatin (PRAVACHOL) 40 mg tablet Take 1 tablet by mouth daily at bedtime. 30 tablet 5 No current facility-administered medications for this visit. PAST SURGICAL HISTORY Procedure Laterality Date ARTHROSCOPY KNEE DIAGNOSTIC W/WO SYNOVIAL BX SPX Arthroscopy, knee COLONOSCOPY FLX DX W/COLLJ SPEC WHEN PFRMD 08/[address] French-recommended repeat was 7 years which makes him due 2025 COLONOSCOPY FLX DX W/COLLJ SPEC WHEN PFRMD 06/05/2008 PAST SURGICAL HISTORY OF fusion right ankle with plates and screws PAST SURGICAL HISTORY OF 2013 Radioactive seeds for prostate cancer PAST SURGICAL HISTORY OF Left 1990 achilles tendon tear repair RPR 1ST INGUN HRNA AGE 6 YRS/> REDUCIBLE Hernia repair, inguinal RPR/TRAUMATIC AV FISTULA EXTREMITIES 12/30/2005 RIGHT GROIN FAMILY HISTORY Problem Relation Age of Onset Stroke Mother Hypertension Mother Diabetes Mother WITH RENAL FAILURE Cataract Mother Stroke Father Prostate Cancer Father Heart Father Kidney Disease Sister Diabetes Sister Kidney Disease Sister polycystic kidney disease No Known Problems Son No Known Problems Daughter Social History Tobacco Use Smoking status: Never Smoker Smokeless tobacco: Never Used Substance Use Topics Alcohol use: Yes Alcohol/week: 14.0 standard drinks Types: 14 Cans of Beer (12oz) per week Comment: occasionally Drug use: No Objective BP 110/82 Pulse 76 Temp 36.5 C (97.7 F) (Tympanic) Resp 16 Wt 107.4 kg (236 lb 12.8 oz) SpO2 95% BMI 37.09 kg/m Physical Exam Vitals reviewed. Constitutional: Appearance: Normal appearance. HENT: Head: Normocephalic and atraumatic. Eyes: Comments: Patient has bilateral injection of the sclera. Limbus sparing. He does have some mild chemosis of the conjunctive a, left worse than right. No significant drainage present. No sign of orbital periorbital cellulitis. Patient has watering of the eyes. No foreign bodies visualized. Cardiovascular: Rate and Rhythm: Normal rate and regular rhythm. Heart sounds: Normal heart sounds. Pulmonary: Effort: Pulmonary effort is normal. Breath sounds: Normal breath sounds. Skin: General: Skin is warm and dry. Neurological: Mental Status: He is alert. Assessment and Plan ASSESSMENT/PLAN: 1. Allergic conjunctivitis of both eyes - ICD9: 372.14, ICD10: H10.13 - see medication orders-pataday and prednisone ordered Follow-up with ophthalmology if not improving. Zulema Watson PA-C documented in this encounter [facility] 01-27-2022 Miscellaneous Notes Duplicate request Molly Gaines APRN.CNP Last office visit: 12/06/21 F/u scheduled: none Kathy Armas Ma documented in this encounter [facility] 12-06-2021 History of Presen t illness Narrative 12/06/2021 Patient presents with: Refill Request SUBJECTIVE: This is a 71 year old that is here today for Above Complaints. Since last office visit has been in good health without ER visits or hospitalizations. Takes vistaril nightly which works fairly well to help with sleep,not quite as good as lorazepam though but feels it works well enough HTN: Patient is compliant with meds Yes Monitors bp at home: Yes. Denies side effects: Yes. Chest pain: No. Dyspnea: No. Edema: No. Palpitations: No. Syncope: No. Headache: No. Dizziness: Yes- had an episode yesterday were he became dizzy when turning his head but none since. Episode last a few seconds. Denies visual changes, presyncope or syncope. HYPERLIPIDEMIA: Patient is taking medications: Yes. Patient is watching diet: Yes. Patient denies myalgias: Yes. Patient denies gi upset: Yes Follows with Dr. Dial for hx of CAD and CHF. Last office visit in September,. No medication changes. Has a hx of sarcoidosis. Follows with Dr. Treadwell. Notes SOB with exertion which is chronic. He reports he feels his SOB has improved some. Working on losing weight with diet and exercise. Has lost 13# since last office visit in April PAST MEDICAL HISTORY Diagnosis Date Acute myocardial infarction of other specified sites Myocardial Infarction(2004, 1992) Atherosclerotic heart disease of habematolel coronary artery without angina pectoris BPH (benign prostatic hyperplasia) 03/11/2010 Chronic systolic congestive heart failure (HCC) EF 30% 09/2020 Degenerative cervical spinal stenosis 09/26/2011 Degenerative disc disease, cervical 10/20/2011 Diverticulosis of colon (without mention of hemorrhage) Diverticulosis Erectile dysfunction 03/11/2010 Essential hypertension, benign Generalized anxiety disorder Hemorrhage of gastrointestinal tract, unspecified Hemorrhage of rectum and anus History of COVID-19 History of prostate cancer [address] Treadwell Ischemic cardiomyopathy Dr. Dial Obesity 03/17/2013 Other and unspecified hyperlipidemia Presence of automatic cardioverter/defibrillator (AICD) Rupture of left Achilles tendon Shingles Unspecified hemorrhoids without mention of complication Hemorrhoids ALLERGIES Cath Dye [Other], Lipitor [Atorvastatin], Pollen Extracts, Trazodone, and Zocor [Simvastatin] MEDICATIONS Current Outpatient Medications Medication Sig ramipril (ALTACE) 10 mg capsule TAKE 1 CAPSULE BY MOUTH DAILY FLUoxetine (PROZAC) 20 mg capsule Take 1 capsule by mouth once daily. hydrOXYzine pamoate (VISTARIL) 25 mg capsule Take 1 capsule by mouth at bedtime as needed (insomnia). tamsulosin (FLOMAX) 0.4 mg Take 1 capsule by mouth once daily. pravastatin (PRAVACHOL) 40 mg tablet Take 1 tablet by mouth daily at bedtime. nitroglycerin sublingual (NITROQUICK) 0.4 mg SL tablet Dissolve 1 tablet under the tongue every 5 minutes as needed for Chest Pain. CALCIUM CARBONATE/VITAMIN D3 (CALCIUM + D ORAL) Take 5 tablets by mouth once daily. PLAVIX 75 MG TAB Take one(1) tablet daily. COREG 25 MG TAB Take one(1) tablet two(2) times daily. ASPIRIN 81 MG TAB Take one(1) tablet daily. DAILY MULTIVITAMIN TAB Take one(1) tablet daily. scopolamine (TRANSDERM-SCOP) patch 1.5 mg/72 hr (1 mg over 3 days) Apply 1 Patch as directed every 72 hours. Apply patch to skin behind ear 4hrs prior to travel. No current facility-administered medications for this visit. Medications and allergies reviewed by this provider. SOCIAL HISTORY Social History Tobacco Use Smoking status: Never Smoker Smokeless tobacco: Never Used Substance Use Topics Alcohol use: Yes Alcohol/week: 14.0 standard drinks Types: 14 Cans of Beer (12oz) per week Comment: occasionally Drug use: No REVIEW OF SYSTEMS All other reviewed and negative other than HPI. OBJECTIVE: BP 122/70 Pulse 78 Resp 20 Wt 110.5 kg (243 lb 9.6 oz) SpO2 95% BMI 38.15 kg/m . Vital signs reviewed by this provider. APPEARANCE Well appearing, alert, in no acute distress, well-hydrated, well nourished. and Overweight EYES PERRLA, conjunctiva and sclera normal. NECK Supple no bruits HEART RRR with normal S1 and S2, no murmurs, no gallops, no JVD appreciated LUNG clear to auscultation. No wheezes, rhonchi or rales EXTREMITIES Extremities normal, No deformities, No skin discoloration and No edema SKIN Skin color, texture, turgor normal, no suspicious rashes or lesions to exposed skin Component Latest Ref Rng & Units 09/18/2021 Total Cholesterol, Nonfasting <200 mg/dL 152 Triglycerides, Nonfasting <150 mg/dL 65 HDL Cholesterol, Nonfasting >39 mg/dL 37 (L) LDL Cholesterol, Nonfasting <100 mg/dL 102 (H) Non HDL Cholesterol, Nonfasting <130 mg/dL 115 VLDL Cholesterol, Nonfasting <30 mg/dL 13 Total Chol/HDL Ratio, Nonfasting <5.10 mg/dL 4.11 LDL/HDL Ratio, Nonfasting <2.54 mg/dL 2.76 (H) Component Latest Ref Rng & Units 05/01/2021 Protein, Total 6.3 - 8.0 g/dL 6.3 Albumin 3.9 - 4.9 g/dL 3.8 (L) Calcium 8.5 - 10.2 mg/dL 9.9 Bilirubin, Total 0.2 - 1.3 mg/dL 0.4 Alkaline Phosphatase 38 - 113 U/L 68 AST 14 - 40 U/L 18 Glucose 74 - 99 mg/dL 89 BUN 9 - 24 mg/dL 17 Creatinine 0.73 - 1.22 mg/dL 1.08 Sodium 136 - 144 mmol/L 138 Potassium 3.7 - 5.1 mmol/L 4.4 Chloride 97 - 105 mmol/L 103 CO2 22 - 30 mmol/L 27 Anion Gap 9 - 18 mmol/L 8 (L) ALT 10 - 54 U/L 25 eGFR- >60 eGFR-All Other Races . >60 ADVANCE DIRECTIVE DISCUSSION Never done COVID-19 VACCINE(4 - Booster for Moderna series) due on 09/16/2021 DEPRESSION SCREENING due on 05/01/2022 LDL CHOLESTEROL due on 09/18/2022 ANNUAL PCP TEAM CHRONIC DISEASE VISIT due on 12/06/2022 BP CONTROLLED (<130/80) due on 12/06/2022 DIABETES SCREEN due on 05/01/2024 DTAP,TDAP,TD(3 - Td or Tdap) due on 12/17/2025 LIPID SCREEN due on 09/18/2026 COLORECTAL CANCER SCREENING due on 08/23/2028 INFLUENZA Completed HEPATITIS C SCREENING Completed PNEUMOVAX AGE 65 AND OVER WITH 5YR LOOKBACK Completed SHINGRIX VACCINE Completed MENINGOCOCCAL CONJUGATE Aged Out ASSESSMENT/PLAN: 1. Essential hypertension, benign - ICD9: 401.1, ICD10: I10 (primary diagnosis) - good control - Continue current medication(s) - Encouraged dietary sodium restriction/DASH diet - Recommended regular aerobic exercise. - Recommend home blood pressure monitoring, to bring results in on next visit - Discussed need and benefit for weight loss. - Recheck in 6 months, sooner should new symptoms or problems arise. - Goal of BP <130/80 - recent BMP through [facility] on 10/03/2021 normal - Recommended no refined sugar, low refined starch, healthy oil intake (olive oil), healthy protein (fish) along the lines of the Mediterranean diet. 2. Chronic insomnia - ICD9: 780.52, ICD10: F51.04 - HYDROXYZINE PAMOATE 25 MG CAPSULE 3. Sarcoidosis - ICD9: 135, ICD10: D86.9 - stable - follow-up with Dr. Treadwell as scheduled 4. Hyperlipidemia LDL goal <100 - ICD9: 272.4, ICD10: E78.5 - sub optimal control- improved - Continue current medication. - Encouraged following a low fat, low cholesterol diet. - Continue to work in diet and excercise - Follow up in 6 months. - Encouraged following a low carbohydrate, healthy oil intake diet. 5. 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 Dial as recommended 6. Dizziness - ICD9: 780.4, ICD10: R42 - one incident which resolved quickly - reminded to stay well hydrated especially with open coming paulino weather - change positions slowly - follow-up as needed Molly Gaines APRN.VIDEO GAME DESIGNER Prescription instructions reviewed with patient as applicable. Patient advised if symptoms do not improve or if symptoms worsen sooner, to contact their primary care physician. Potential red flag symptoms discussed with the patient. Reviewed appropriate action plan to take if red flag symptoms occur. Patient agreeable to treatment plan. documented in this encounter [facility] documented as of this encounter (statuses as of 12/06/2021) [facility]07[facility]2011 History of Past illness Narrative* Problem Noted Date Resolved Date Sprain of neck 02/04/2011 12/22/2016 Cervical strain 01/15/2011 12/22/2016 FISTULA ARTERIOVENOUS (ACQ) 11/25/200511/2016 Overview: Surgical repair in December, by Dr. Chris Pedersen Hemorrhage of gastrointestinal tract, unspecifie d 12/22/2016 documented as of this encounter (statuses as of 01/27/2022) [facility] History of Past illness Narrative* Problem Noted Date Resolved Date Sprain of neck 02/04/2011 12/22/2016 Cervical strain 01/15/2011 12/22/2016 FISTULA ARTERIOVENOUS (ACQ) 11/25/200511/2016 Overview: Surgical repair in December, by Dr. Chris Pedersen Hemorrhage of gastrointestinal tract, unspecifie d 12/22/2016 documented as of this encounter (statuses as of 01/28/2022) [facility] History of Past illness Narrative* Problem Noted Date Resolved Date Sprain of neck 02/04/2011 12/22/2016 Cervical strain 01/15/2011 12/22/2016 FISTULA ARTERIOVENOUS (ACQ) 11/25/200511/2016 Overview: Surgical repair in December, by Dr. Chris Pedersen Hemorrhage of gastrointestinal tract, unspecifie d 12/22/2016 documented as of this encounter (statuses as of 02/17/2022) [facility] History of Past illness Narrative* Problem Noted Date Resolved Date Sprain of neck 02/04/2011 12/22/2016 Cervical strain 01/15/2011 12/22/2016 FISTULA ARTERIOVENOUS (ACQ) 11/25/200511/2016 Overview: Surgical repair in December, by Dr. Chris Pedersen Hemorrhage of gastrointestinal tract, unspecifie d 12/22/2016 documented as of this encounter (statuses as of 02/18/2022) [facility] History of Past illness Narrative* Problem Noted Date Resolved Date Sprain of neck 02/04/2011 12/22/2016 Cervical strain 01/15/2011 12/22/2016 FISTULA ARTERIOVENOUS (ACQ) 11/25/200511/2016 Overview: Surgical repair in December, by Dr. Chris Pedersen Hemorrhage of gastrointestinal tract, unspecifie d 12/22/2016 documented as of this encounter (statuses as of 02/27/2022) [facility] History of Past illness Narrative* Problem Noted Date Resolved Date Sprain of neck 02/04/2011 12/22/2016 Cervical strain 01/15/2011 12/22/2016 FISTULA ARTERIOVENOUS (ACQ) 11/25/200511/2016 Overview: Surgical repair in December, by Dr. Chris Pedersen Hemorrhage of gastrointestinal tract, unspecifie d 12/22/2016 documented as of this encounter (statuses as of 04/22/2022) [facility] History of Past illness Narrative* Problem Noted Date Resolved Date Sprain of neck 02/04/2011 12/22/2016 Cervical strain 01/15/2011 12/22/2016 FISTULA ARTERIOVENOUS (ACQ) 11/25/200511/2016 Overview: Surgical repair in December, by Dr. Chris Cebul Hemorrhage of gastrointestinal tract, unspecifie d 12/22/2016 documented as of this encounter (statuses as of 05/21/2022) [facility] History of Past illness Narrative* Problem Noted Date Resolved Date Sprain of neck 02/04/2011 12/22/2016 Cervical strain 01/15/2011 12/22/2016 FISTULA ARTERIOVENOUS (ACQ) 11/25/200511/2016 Overview: Surgical repair in December, by Dr. Chris Pedersen Hemorrhage of gastrointestinal tract, unspecifie d 12/22/2016 documented as of this encounter (statuses as of 06/17/2022) [facility] History of Past illness Narrative* Problem Noted Date Resolved Date Sprain of neck 02/04/2011 12/22/2016 Cervical strain 01/15/2011 12/22/2016 FISTULA ARTERIOVENOUS (ACQ) 11/25/200511/2016 Overview: Surgical repair in December, by Dr. Chris Pedersen Hemorrhage of gastrointestinal tract, unspecifie d 12/22/2016 documented as of this encounter (statuses as of 06/18/2022) [facility] History of Past illness Narrative* Problem Noted Date Resolved Date Sprain of neck 02/04/2011 12/22/2016 Cervical strain 01/15/2011 12/22/2016 FISTULA ARTERIOVENOUS (ACQ) 11/25/200511/2016 Overview: Surgical repair in December, by Dr. Chris Pedersen Hemorrhage of gastrointestinal tract, unspecifie d 12/22/2016 documented as of this encounter (statuses as of 06/20/2022) [facility] History of Past illness Narrative* Problem Noted Date Resolved Date Sprain of neck 02/04/2011 12/22/2016 Cervical strain 01/15/2011 12/22/2016 FISTULA ARTERIOVENOUS (ACQ) 11/25/200511/2016 Overview: Surgical repair in December, by Dr. Chris Pedersen Hemorrhage of gastrointestinal tract, unspecifie d 12/22/2016 documented as of this encounter (statuses as of 06/20/2022) [facility] History of Past illness Narrative* Problem Noted Date Resolved Date Sprain of neck 02/04/2011 12/22/2016 Cervical strain 01/15/2011 12/22/2016 FISTULA ARTERIOVENOUS (ACQ) 11/25/200511/2016 Overview: Surgical repair in December, by Dr. Chris Pedersen Hemorrhage of gastrointestinal tract, unspecifie d 12/22/2016 documented as of this encounter (statuses as of 07/22/2022) [facility] History of Past illness Narrative* Problem Noted Date Resolved Date Sprain of neck 02/04/2011 12/22/2016 Cervical strain 01/15/2011 12/22/2016 FISTULA ARTERIOVENOUS (ACQ) 11/25/200511/2016 Overview: Surgical repair in December, by Dr. Chris Pedersen Hemorrhage of gastrointestinal tract, unspecifie d 12/22/2016 documented as of this encounter (statuses as of 07/22/2022) [facility] History of Past illness Narrative* Problem Noted Date Resolved Date Sprain of neck 02/04/2011 12/22/2016 Cervical strain 01/15/2011 12/22/2016 FISTULA ARTERIOVENOUS (ACQ) 11/25/200511/2016 Overview: Surgical repair in December, by Dr. Chris Pedersen Hemorrhage of gastrointestinal tract, unspecifie d 12/22/2016 documented as of this encounter (statuses as of 08/21/2022) [facility] History of Past illness Narrative* Problem Noted Date Resolved Date Sprain of neck 02/04/2011 12/22/2016 Cervical strain 01/15/2011 12/22/2016 FISTULA ARTERIOVENOUS (ACQ) 11/25/200511/2016 Overview: Surgical repair in December, by Dr. Chris Pedersen Hemorrhage of gastrointestinal tract, unspecifie d 12/22/2016 documented as of this encounter (statuses as of 08/21/2022) [facility] History of Past illness Narrative* Problem Noted Date Resolved Date Sprain of neck 02/04/2011 12/22/2016 Cervical strain 01/15/2011 12/22/2016 FISTULA ARTERIOVENOUS (ACQ) 11/25/200511/2016 Overview: Surgical repair in December, by Dr. Chris Pedersen Hemorrhage of gastrointestinal tract, unspecifie d 12/22/2016 documented as of this encounter (statuses as of 09/02/2022) [facility] History of Past illness Narrative* Problem Noted Date Resolved Date Sprain of neck 02/04/2011 12/22/2016 Cervical strain 01/15/2011 12/22/2016 FISTULA ARTERIOVENOUS (ACQ) 11/25/200511/2016 Overview: Surgical repair in December, by Dr. Chris Pedersen Hemorrhage of gastrointestinal tract, unspecifie d 12/22/2016 documented as of this encounter (statuses as of 12/17/2022) [facility] History of Past illness Narrative* Problem Noted Date Resolved Date Sprain of neck 02/04/2011 12/22/2016 Cervical strain 01/15/2011 12/22/2016 FISTULA ARTERIOVENOUS (ACQ) 11/25/200511/2016 Overview: Surgical repair in December, by Dr. Chris Pedersen Hemorrhage of gastrointestinal tract, unspecifie d 12/22/2016 documented as of this encounter (statuses as of 12/17/2022) [facility] History of Past illness Narrative* Problem Noted Date Resolved Date Sprain of neck 02/04/2011 12/22/2016 Cervical strain 01/15/2011 12/22/2016 FISTULA ARTERIOVENOUS (ACQ) 11/25/200511/2016 Overview: Surgical repair in December, by Dr. Chris Pedersen Hemorrhage of gastrointestinal tract, unspecifie d 12/22/2016 documented as of this encounter (statuses as of 12/24/2022) [facility] History of Past illness Narrative* Problem Noted Date Resolved Date Sprain of neck 02/04/2011 12/22/2016 Cervical strain 01/15/2011 12/22/2016 FISTULA ARTERIOVENOUS (ACQ) 11/25/200511/2016 Overview: Surgical repair in December, by Dr. Chris Pedersen Hemorrhage of gastrointestinal tract, unspecifie d 12/22/2016 documented as of this encounter (statuses as of 01/19/2023) [facility] History of Past illness Narrative* Problem Noted Date Diagnosed Date Resolved Date Sprain of neck 02/04/2011 12/22/2016 Cervical strain 01/15/2011 12/22/2016 FISTULA ARTERIOVENOUS (ACQ) 11/25/2005 12/22/2016 Overview: Surgical repair in December, by Dr. Chris Pedersen Hemorrhage of gastrointestin al tract, unspecified 12/22/2016 documented as of this encounter (statuses as of 01/30/2023) [facility] History of Past illness Narrative* Problem Noted Date Diagnosed Date Resolved Date Sprain of neck 02/04/2011 12/22/2016 Cervical strain 01/15/2011 12/22/2016 FISTULA ARTERIOVENOUS (ACQ) 11/25/2005 12/22/2016 Overview: Surgical repair in December, by Dr. Chris Pedersen Hemorrhage of gastrointestin al tract, unspecified 12/22/2016 documented as of this encounter (statuses as of 02/02/2023) [facility] History of Past illness Narrative* Problem Noted Date Diagnosed Date Resolved Date Sprain of neck 02/04/2011 12/22/2016 Cervical strain 01/15/2011 12/22/2016 FISTULA ARTERIOVENOUS (ACQ) 11/25/2005 12/22/2016 Overview: Surgical repair in December, by Dr. Chris Pedersen Hemorrhage of gastrointestin al tract, unspecified 12/22/2016 documented as of this encounter (statuses as of 02/16/2023) [facility] History of Past illness Narrative* Problem Noted Date Diagnosed Date Resolved Date Sprain of neck 02/04/2011 12/22/2016 Cervical strain 01/15/2011 12/22/2016 FISTULA ARTERIOVENOUS (ACQ) 11/25/2005 12/22/2016 Overview: Surgical repair in December, by Dr. Chris Pedersen Hemorrhage of gastrointestin al tract, unspecified 12/22/2016 documented as of this encounter (statuses as of 04/03/2023) [facility] History of Past illness Narrative* Problem Noted Date Diagnosed Date Resolved Date Sprain of neck 02/04/2011 12/22/2016 Cervical strain 01/15/2011 12/22/2016 FISTULA ARTERIOVENOUS (ACQ) 11/25/2005 12/22/2016 Overview: Surgical repair in December, by Dr. Chris Pedersen Hemorrhage of gastrointestin al tract, unspecified 12/22/2016 documented as of this encounter (statuses as of 05/12/2023) [facility] History of Past illness Narrative* Problem Noted Date Diagnosed Date Resolved Date Sprain of neck 02/04/2011 12/22/2016 Cervical strain 01/15/2011 12/22/2016 FISTULA ARTERIOVENOUS (ACQ) 11/25/2005 12/22/2016 Overview: Surgical repair in December, by Dr. Chris Pedersen Hemorrhage of gastrointestin al tract, unspecified 12/22/2016 documented as of this encounter (statuses as of 08/25/2023) [facility] History of Past illness Narrative* Problem Noted Date Diagnosed Date Resolved Date Sprain of neck 02/04/2011 12/22/2016 Cervical strain 01/15/2011 12/22/2016 FISTULA ARTERIOVENOUS (ACQ) 11/25/2005 12/22/2016 Overview: Surgical repair in December, by Dr. Chris Pedersen Hemorrhage of gastrointestin al tract, unspecified 12/22/2016 documented as of this encounter (statuses as of 08/25/2023) [facility] Essential hypertension, benign- Primary Chronic insomnia Insomnia, unspecified Sarcoidosis Hyperlipidemia LDL goal <100 Other and unspecified hyperlipidemia Atherosclerosis of habematolel coronary artery of habematolel heart without angina pectoris Dizziness Dizziness and giddiness [facility] Diagnosis Chronic anxiety Anxiety state, unspecified [facility] Diagnosis Allergic conjunctivitis of both eyes- Primary Other chronic allergic conjunctivitis [facility] Diagnosis Vesicle of skin- Primary [facility] Diagnosis Malignant neoplasm of prostate (HCC) Malignant neoplasm of prostate [facility] Diagnosis Chronic insomnia Insomnia, unspecified [facility] Diagnosis Essential hypertension, benign [facility] Diagnosis Atherosclerosis of habematolel coronary artery of habematolel heart without angina pectoris- Primary Class 2 severe obesity due to excess calories with serious comorbidity and body mass index (BMI) of 36.0 to 36.9 in adult (HCC) Benign prostatic hyperplasia with nocturia Essential hypertension, benign Hyperlipidemia LDL goal <100 Other and unspecified hyperlipidemia History of prostate cancer Personal history of malignant neoplasm of prostate Statin intolerance Other drug allergy Sarcoidosis Chronic anxiety Anxiety state, unspecified Need for COVID-19 vaccine [facility] Diagnosis Hyperlipidemia LDL goal <100- Primary Other and unspecified hyperlipidemia [facility] Diagnosis Chronic anxiety Anxiety state, unspecified [facility] Diagnosis Essential hypertension, benign [facility] Diagnosis Chronic anxiety- Primary Anxiety state, unspecified Atherosclerosis of habematolel coronary artery of habematolel heart without angina pectoris History of acute myocardial infarction Old myocardial infarction Essential hypertension, benign Benign prostatic hyperplasia with nocturia Hyperlipidemia LDL goal <100 Other and unspecified hyperlipidemia Statin intolerance Other drug allergy Elbow pain, left Pain in joint, upper arm Chronic combined systolic and diastolic heart failure (HCC) Chronic combined systolic and diastolic heart failure Ventricular tachycardia (HCC) Paroxysmal ventricular tachycardia Malignant neoplasm of prostate (HCC) Malignant neoplasm of prostate Class 2 severe obesity due to excess calories with serious comorbidity and body mass index (BMI) of 36.0 to 36.9 in adult (HCC) [facility] Diagnosis NANI (acute kidney injury) (HCC)- Primary Acute kidney failure, unspecified [facility] this [facility] Diagnosis Chronic insomnia Insomnia, unspecified [facility] Diagnosis Left elbow pain- Primary Pain in joint, upper arm Class 2 severe obesity due to excess calories with serious comorbidity and body mass index (BMI) of 36.0 to 36.9 in adult (HCC) [facility] Diagnosis Chronic anxiety Anxiety state, unspecified [facility] in this encounter [facility] Diagnosis Benign prostatic hyperplasia with nocturia documented in this encounter [facility] note* Diagnosis Essential hypertension, benign documented in this encounter [facility] note* Diagnosis SOB (shortness of breath) on exertion- Primary Shortness of breath Fatigue, unspecified type History of COVID-19 Chronic insomnia Insomnia, unspecified Chronic anxiety Anxiety state, unspecified Vitamin D deficiency, unspecified Chronic combined systolic and diastolic heart failure (HCC) Chronic combined systolic and diastolic heart failure documented in this encounter [facility] Summary Purpose Family History No Family History Records Found Advance Directives No Advanced Directives Records Found Additional Source Comments Source Comments (unrecognize d section and content) In the event this informatio n is protected by the Federal Confidentiality of Alcohol and Drug Abuse Patient Records regulations: The Federal rules restrict any use of the information to criminally investigate or prosecute any alcohol or drug abuse patient.[facility] the event this information is protected by the Federal Confidentiality of Alcohol and Drug Abuse Patient Records regulations: The Federal rules restrict any use of the information to criminally investigate or prosecute any alcohol or drug abuse patient.[facility] the event this information is protected by the Federal Confidentiality of Alcohol and Drug Abuse Patient Records regulations: The Federal rules restrict any use of the information to criminally investigate or prosecute any alcohol or drug abuse patient.[facility] the event this information is protected by the Federal Confidentiality of Alcohol and Drug Abuse Patient Records regulations: The Federal rules restrict any use of the information to criminally investigate or prosecute any alcohol or drug abuse patient.[facility] the event this information is protected by the Federal Confidentiality of Alcohol and Drug Abuse Patient Records regulations: The Federal rules restrict any use of the information to criminally investigate or prosecute any alcohol or drug abuse patient.[facility] the event this information is protected by the Federal Confidentiality of Alcohol and Drug Abuse Patient Records regulations: The Federal rules restrict any use of the information to criminally investigate or prosecute any alcohol or drug abuse patient.[facility] the event this information is protected by the Federal Confidentiality of Alcohol and Drug Abuse Patient Records regulations: The Federal rules restrict any use of the information to criminally investigate or prosecute any alcohol or drug abuse patient.[facility] the event this information is protected by the Federal Confidentiality of Alcohol and Drug Abuse Patient Records regulations: The Federal rules restrict any use of the information to criminally investigate or prosecute any alcohol or drug abuse patient.[facility] the event this information is protected by the Federal Confidentiality of Alcohol and Drug Abuse Patient Records regulations: The Federal rules restrict any use of the information to criminally investigate or prosecute any alcohol or drug abuse patient.[facility] Center[facility] the event this information is protected by the Federal Confidentiality of Alcohol and Drug Abuse Patient Records regulations: The Federal rules restrict any use of the information to criminally investigate or prosecute any alcohol or drug abuse patient.[facility] Center[facility] the event this information is protected by the Federal Confidentiality of Alcohol and Drug Abuse Patient Records regulations: The Federal rules restrict any use of the information to criminally investigate or prosecute any alcohol or drug abuse patient.[facility] Center[facility] the event this information is protected by the Federal Confidentiality of Alcohol and Drug Abuse Patient Records regulations: The Federal rules restrict any use of the information to criminally investigate or prosecute any alcohol or drug abuse patient.[facility] CenterIn the event this information is protected by the Federal Confidentiality of Alcohol and Drug Abuse Patient Records regulations: The Federal rules restrict any use of the information to criminally investigate or prosecute any alcohol or drug abuse patient.[facility] CenterIn the event this information is protected by the Federal Confidentiality of Alcohol and Drug Abuse Patient Records regulations: The Federal rules restrict any use of the information to criminally investigate or prosecute any alcohol or drug abuse patient.[facility] CenterIn the event this information is protected by the Federal Confidentiality of Alcohol and Drug Abuse Patient Records regulations: The Federal rules restrict any use of the information to criminally investigate or prosecute any alcohol or drug abuse patient.[facility] CenterIn the event this information is protected by the Federal Confidentiality of Alcohol and Drug Abuse Patient Records regulations: The Federal rules restrict any use of the information to criminally investigate or prosecute any alcohol or drug abuse patient.[facility] CenterIn the event this information is protected by the Federal Confidentiality of Alcohol and Drug Abuse Patient Records regulations: The Federal rules restrict any use of the information to criminally investigate or prosecute any alcohol or drug abuse patient.[facility] CenterIn the event this information is protected by the Federal Confidentiality of Alcohol and Drug Abuse Patient Records regulations: The Federal rules restrict any use of the information to criminally investigate or prosecute any alcohol or drug abuse patient.[facility] CenterIn the event this information is protected by the Federal Confidentiality of Alcohol and Drug Abuse Patient Records regulations: The Federal rules restrict any use of the information to criminally investigate or prosecute any alcohol or drug abuse patient.[facility] CenterIn the event this information is protected by the Federal Confidentiality of Alcohol and Drug Abuse Patient Records regulations: The Federal rules restrict any use of the information to criminally investigate or prosecute any alcohol or drug abuse patient.[facility] CenterIn the event this information is protected by the Federal Confidentiality of Alcohol and Drug Abuse Patient Records regulations: The Federal rules restrict any use of the information to criminally investigate or prosecute any alcohol or drug abuse patient.[facility] CenterIn the event this information is protected by the Federal Confidentiality of Alcohol and Drug Abuse Patient Records regulations: The Federal rules restrict any use of the information to criminally investigate or prosecute any alcohol or drug abuse patient.[facility] CenterIn the event this information is protected by the Federal Confidentiality of Alcohol and Drug Abuse Patient Records regulations: The Federal rules restrict any use of the information to criminally investigate or prosecute any alcohol or drug abuse patient.[facility] CenterIn the event this information is protected by the Federal Confidentiality of Alcohol and Drug Abuse Patient Records regulations: The Federal rules restrict any use of the information to criminally investigate or prosecute any alcohol or drug abuse patient.[facility] CenterIn the event this information is protected by the Federal Confidentiality of Alcohol and Drug Abuse Patient Records regulations: The Federal rules restrict any use of the information to criminally investigate or prosecute any alcohol or drug abuse patient.[facility] CenterIn the event this information is protected by the Federal Confidentiality of Alcohol and Drug Abuse Patient Records regulations: The Federal rules restrict any use of the information to criminally investigate or prosecute any alcohol or drug abuse patient.[facility] CenterIn the event this information is protected by the Federal Confidentiality of Alcohol and Drug Abuse Patient Records regulations: The Federal rules restrict any use of the information to criminally investigate or prosecute any alcohol or drug abuse patient.[facility] CenterIn the event this information is protected by the Federal Confidentiality of Alcohol and Drug Abuse Patient Records regulations: The Federal rules restrict any use of the information to criminally investigate or prosecute any alcohol or drug abuse patient.[facility] CenterIn the event this information is protected by the Federal Confidentiality of Alcohol and Drug Abuse Patient Records regulations: The Federal rules restrict any use of the information to criminally investigate or prosecute any alcohol or drug abuse patient.[facility] Reason for Visit (unrecogniz ed section and content) Reason Onset Date Comments Refill Request 01/26/2022 Reason Comments Eye Problem itchy, burning and w atery eyes x 1 week Reason Comments Shingles on back x10 days Reason Comments Results Reason Onset Date Comments Refill Request 02/27/2022 Reason Onset Date Comments Refill Request 05/21/2022 Reason Comments Follow Up 6 month Reason Comments Results Orders Reason Comments Insurance Authorization Rep[employer] Reason Comments Medication Problem Reason Comments application for medication assistance Reason Onset Date Comments Refill Request 07/16/2022 Reason Onset Date Comments Refill Request 08/21/2022 Reason Comments Follow Up 6 month follow up- W as seen in [facility] for fall last week Reason Onset Date Comments Refill Request 01/17/2023 Reason Onset Date Comments Refill Request 01/30/2023 Reason Comments Pain Fracture Reason Onset Date Comments Refill Request 02/16/2023 Reason Onset Date Comments Refill Request 04/02/2023 Reason Onset Date Comments Refill Request 05/11/2023 Reason Comments Follow Up Discuss post covid i ssues/symptoms Care Teams (unrecognized sec tion and content) Rose Grading Supervisor Relationship Specialty Start Date End Date Ana Maria Guillen MD [address] [place] [address] PCP - General Family Practice 05/01/21 Rose Grading Supervisor Relationship Specialty Start Date End Date Ana Maria Guillen MD [address] [place] [address] PCP - General Family Practice 05/01/21 Rose Grading Supervisor Relationship Specialty Start Date End Date Ana Maria Guillen MD [address] [facility] [place] [address] PCP - General Family Practice 05/01/21 Rose Grading Supervisor Relationship Specialty Start Date End Date Ana Maria Guillen MD [address] [place] [address] PCP - General Family Practice 05/01/21 Rose Grading Supervisor Relationship Specialty Start Date End Date Ana Maria Guillen MD [address] [place] [address] PCP - General Family Practice 05/01/21 Rose Grading Supervisor Relationship Specialty Start Date End Date Ana Maria Guillen MD [address] [facility] [place] [address] PCP - General Family Medicine 05/01/21 Rose Grading Supervisor Relationship Specialty Start Date End Date Ana Maria Guillen MD [address] [facility] [place] [address] PCP - General Family Medicine 05/01/21 Rose Grading Supervisor Relationship Specialty Start Date End Date Ana Maria Guillen MD [address] [facility] [place] [address] PCP - General Family Medicine 05/01/21 Rose Grading Supervisor Relationship Specialty Start Date End Date Ana Maria Guillen MD [address] [facility] [place] [address] PCP - General Family Medicine 05/01/21 Rose Grading Supervisor Relationship Specialty Start Date End Date Ana Maria Guillen MD [address] [facility] [place] [address] PCP - General Family Medicine 05/01/21 Rose Grading Supervisor Relationship Specialty Start Date End Date Ana Maria Guillen MD [address] [facility] [place] [address] PCP - General Family Medicine 05/01/21 Rose Grading Supervisor Relationship Specialty Start Date End Date Ana Maria Guillen MD [address] [facility] [place] [address] PCP - General Family Medicine 05/01/21 Rose Grading Supervisor Relationship Specialty Start Date End Date Ana Maria Guillen MD [address] [facility] [place] [address] PCP - General Family Medicine 05/01/21 Rose Grading Supervisor Relationship Specialty Start Date End Date Ana Maria Guillen MD [address] [facility] [place] [address] PCP - General Family Medicine 05/01/21 Rose Grading Supervisor Relationship Specialty Start Date End Date Ana Maria Guillen MD [address] [facility] [place] [address] PCP - General Family [facility] 05/01/21 Rose Grading Supervisor Relationship Specialty Start Date End Date Ana Maria Guillen MD [address] [facility] [place] [address] PCP - General [facility] 05/01/21 Rose Grading Supervisor Relationship Specialty Start Date End Date Ana Maria Guillen MD [address] [facility] [place] [address] PCP - General [facility] 05/01/21 Rose Grading Supervisor Relationship Specialty Start Date End Date Ana Maria Guillen MD [address] [facility] [place] [address] PCP - General [facility] 05/01/21 Rose Grading Supervisor Relationship Specialty Start Date End Date Ana Maria Guillen MD [address] [facility] [place] [address] PCP - General Family Medicine 05/01/21 (unrecognized sect ion and content) No Status Records Found INFORMATION SOURCE (unrecogn ized section and content) FOR RECORDS PERTAINING TO PATIENTS WHO ARE OR HAVE BEEN ENROLLED IN A CHEMICAL DEPENDENCY/SUBSTANCEABUSE PROGRAM, SOME INFORMATION MAY BE OMITTED. This clinical summary was aggregated from multiple sources. Caution should be exercised in using it in the provision of clinical care. This summary normalizes information from multiple sources, and as a consequence, information in this document may materially change the coding, format and clinical context of patient data. In addition, data may be omitted in some cases. CLINICAL DECISIONS SHOULD BE BASED ON THE PRIMARY CLINICAL RECORDS. [facility]. provides no warranty or guarantee of the accuracy or completeness of information in this document.
[2023-08-25 20:25] LABS: ALB/GLOB Ratio 0.9 RATIO (0.9-2.4); AST(SGOT) 20 U/L (15-37); Alanine Aminotransfer ALT/SGPT 32 U/L (16-61); Albumin, Serum 3.2 g/dL (3.2-5.0); Alkaline Phosphatase 64 U/L (45-117); Anion Gap 3 (5-15); BUN 17 mg/dL (7-18); BUN/Creat Ratio 13.9 RATIO (10-20); Calcium,Total 9.4 mg/dL (8.5-10.1); Chloride 107 mmol/L (98-107); Creatinine, Serum 1.22 mg/dL (0.70-1.30); EST Glomerular Filtration Rate 62 mL/min (>60); Est Glom Filt Rate - Afr Amer 75 mL/min (>60); Estimated Creatinine Clearance 67.53 ml/min; Globulin 3.7 g/dL (2.2-4.2); Glucose 84 mg/dL (74-106); Protein, Total 6.9 g/dL (6.4-8.2); Sodium Level 140 mmol/L (136-145); Troponin-I HS (w/2H Reflex) 11 pg/mL (3.0-78.0)
[2023-08-25] MEDS: 0.9% Normal Saline (1000mL) 1,000 ML 1000 ML IV (20:26)
[2023-08-25 21:04] VITALS: BP 135/79; PULSE 69; RESP 15; O2SAT 95
[2023-08-25 22:00] LABS: Reflex Troponin-HS? (from REC) Y
[2023-08-25 22:03] LABS: Bacteria 0 SEEN /hpf (None Seen); Mucous, Urine 0 SEEN /hpf (<or=2+); Squamous Epithelial Cells - UA 0 SEEN /hpf (0-5); White Blood Cells 0 SEEN /hpf (0-5)
[2023-08-25 22:05] LABS: Color, Urine Yellow (Yellow); Glucose, Dipstick Normal (Normal); Ketone-Dipstick 5 mg/dl (Negative); Leukocyte Esterase-Dipstick Negative /ul (Negative); Nitrite-Dipstick Negative (Negative); Occult Blood-Urine Negative /ul (Negative); Protein-Dipstick 30 mg/dl (Negative); Urine Bilirubin Dipstick Negative (Negative); Urine Clarity Sl. Cloudy (Clear); Urine Urobilinogen 1 mg/dl (Normal)
[2023-08-25 22:18] LABS: Red Blood Cells-Urine 0-5 SEEN /hpf (0-5)
[2023-08-25 22:19] VITALS: BP 157/96; PULSE 76; RESP 16; O2SAT 98
[2023-08-25 22:32] VITALS: BP 156/92; BP 160/100; BP 172/107; PULSE 63; PULSE 65; PULSE 83
[2023-08-25 22:35] LABS: Troponin-I HS 11 pg/mL (3.0-78.0)
--- NOTE | 2023-08-25 22:57 | HP.PCM.HOS_ITS ---
HPI - General General Date of Admission: 08/25/23 Date of Service: 08/25/23 Chief Complaint: Expressive aphasia lasting for about 15 to 20 minutes. Associated with dizziness HPI Narrative CROW TALBERT, is a 73 M with extensive history of cardiac disease including coronary artery disease status postcardiac stents, defibrillator and heart failure came to ED with dizziness and expressive aphasia. 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 After that he felt that he could not get the words out although he he had idea and wants to speak out but could not verbalize/expressive aphasia. The episode lasted for 15 to 20 minutes. He denies any previous episode of TIA or stroke. Patient denies any focal weakness, sensory impairment including numbness tingling or paresthesia, hemianopia/quadrantanopia, dysphagia or vertigo. Patient stated he felt tin nitus. Denies any headache. In ED, patient had initial workup including twelve-lead EKG which shows normal sinus rhythm LAD, low voltage QRS, QTc 390 ms, [place] [address] head without contrast reported no acute change. 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 Pneumonia Prostate CA Sarcoidosis Ventricular tachycardia Home Medications aspirin 81 mg tablet,delayed release 81 mg PO DAILY 12/23/16 [History Last Taken 05/06/17] calcium carbonate 500 mg-vitamin D3 5 mcg (200 unit) tablet 1 ea PO BID 12/23/16 [History Last Taken 05/06/17] fluoxetine 20 mg capsule 20 mg PO DAILY 12/23/16 [History Last Taken 05/06/17] multivitamin 1 ea PO DAILY 12/23/16 [History Last Taken 05/06/17] ramipril 10 mg capsule 10 mg PO DAILY 12/23/16 [History Last Taken 05/06/17] nitroglycerin 0.4 mg sublingual tablet 0.4 mg sublingual Q5M PRN Chest Pain #25 tabs 08/30/18 [Rx Last Taken Unknown] albuterol sulfate 90 mcg/actuation aerosol inhaler 2 puff inhalation Q4H PRN shortness of breath or wheezing #8.5 grams 06/28/21 [Rx Last Taken Unknown] carvedilol 25 mg tablet 25 mg PO BID #180 tabs 07/11/22 [Rx Last Taken Unknown] clopidogrel 75 mg tablet 75 mg PO DAILY #90 tabs 09/03/22 [Rx Last Taken Unknown] tamsulosin 0.4 mg capsule 0.4 mg PO DAILY 10/14/22 [History Last Taken Unknown] Clopidoxyzine insomnia 08/25/23 [History Last Taken Unknown] pravastatin 40 mg tablet 40 mg PO QHS 08/25/23 [History Last Taken Unknown] Allergy/AdvReac Type Severity Reaction Status Date / Time atorvastatin [From Lipitor] Allergy Unknown Verified 08/25/23 19:34 Iodinated Contrast Media Allergy Anaphylaxis Verified 08/25/23 19:34 [CONTRASTS] pravastatin AdvReac myalgia Verified 08/25/23 19:34 simvastatin AdvReac myalgia Verified 08/25/23 19:34 Family History Father Myocardial infarction CAD (coronary artery disease) Heart disease Prostate CA Mother Kidney disease CVA (cerebral vascular accident) Cystic fibrosis Sister Cystic fibrosis Sister Cystic fibrosis Surgical History H/O Achilles tendon repair H/O umbilical hernia repair History of coronary artery stent placement (05/19/05) History of implantable cardiac defibrillator (ICD) (09/19/10) History of left heart catheterization (05/06/17) History of open reduction and internal fixation (ORIF) procedure Social History Smoking Status: Never smoker alcohol intake: current alcohol intake frequency: a few times a week Alcohol type: beer and hard liquor substance use type: does not use ROS ROS Narrative Constitutional: No acute fatigue and weakness. No fever. HEENT: Tinnitus. No vertigo. Reports systems reviewed and no addt'l complaints, except as documented Respiratory/Chest: No acute shortness of breath or respiratory distress or wheezing. CVS: No chest pain pressure or tightness. Left-sided AICD Gastrointestinal: Denies coffee ground emesis, hematemesis or vomiting Genitourinary: Denies burning urination or new urinary tract symptoms Musculoskeletal: History of right ankle surgery with screws and plate. Denies acute joint pain or limited range of motion. No acute injury Neurologic: Denies seizure-like symptoms. As described in HPI skin: No ulcer. No rash Endocrinology: Reports systems reviewed and no addt'l complaints, except as documented Hematologic/Lymphatic: Reports systems reviewed and no addt'l complaints, except as documented Rest 14 ROS are negative except as mentioned in HPI Vital Signs Vital Signs Vital Signs: 08/25/23 19:32 08/25/23 21:04 08/25/23 22:19 Temperature 97.1 F L Temperature Source Temporal Pulse Rate 71 69 76 Pulse Rate [Lying] Pulse Rate [Sitting (for 1 minute prior to obtaining)] Pulse Rate [Standing (for 1 minute prior to obtaining)] Respiratory Rate 16 15 16 Blood Pressure 146/83 H 135/79 H 157/96 H Blood Pressure [Lying] Blood Pressure [Sitting (for 1 minute prior to obtaining)] Blood Pressure [Standing (for 1 minute prior to obtaining)] Blood Pressure Mean 104 97 116 Blood Pressure Mean [Lying] Blood Pressure Mean [Sitting (for 1 minute prior to obtaining)] Blood Pressure Mean [Standing (for 1 minute prior to obtaining)] Pulse Ox 97 95 98 Oxygen Delivery Method Room Air Room Air Room Air 08/25/23 22:32 Temperature Temperature Source Pulse Rate Pulse Rate [Lying] 63 Pulse Rate [Sitting (for 1 minute prior to obtaining)] 65 Pulse Rate [Standing (for 1 minute prior to obtaining)] 83 Respiratory Rate Blood Pressure Blood Pressure [Lying] 156/92 H Blood Pressure [Sitting (for 1 minute prior to obtaining)] 160/100 H Blood Pressure [Standing (for 1 minute prior to obtaining)] 172/107 H Blood Pressure Mean Blood Pressure Mean [Lying] 113 Blood Pressure Mean [Sitting (for 1 minute prior to obtaining)] 120 Blood Pressure Mean [Standing (for 1 minute prior to obtaining)] 128 Pulse Ox Oxygen Delivery Method Weight Weight: 247 lb Body Mass Index (BMI) 36.4 Physical Exam Narrative General: Alert, Oriented x3, Cooperative, obesity grade 3 BMI 36.0 kg/m? HEENT: Atraumatic, PERRLA, EOMI, Normocephalic Oral: No Gingival or Mucosal Lesions/ Ulcerations Neck: Supple, No JVD, Negative Carotid Bruits Chest wall/Lungs: Air entry diminished in bilateral lung bases. No crepitation/rhonchi Cardiovascular: Regular rate, Regular Rhythm, Normal S1, Normal S2, No M/G/R, left-sided AICD. Abdomen: Bowel Sounds Present, Soft, Non Tender, Non-Distended : No dysuria. No renal angle tenderness. No suprapubic tenderness. Extremities: No edema, Capillary Refill Less than 3 Seconds Skin: No rashes, No breakdown Musculoskeletal: No Tenderness to Palpation of Joints or Extremities. Muscle strength 5/5 at major joints. Neurological: Cranial nerves II-XII grossly intact, DTR 2+/4. No acute focal neurological deficit. NIH stroke scale 0 Psych/Mental Status: Normal Affect, Appropriate. Results Lab / Micro Data 08/25/23 19:45 08/25/23 19:45 Labs: Laboratory Results - last 24 hr 08/25/23 19:45: WBC 6.6, RBC 4.75, Hgb 13.8, Hct 44.8, MCV 94.3 H, MCH 29.1, MCHC 30.8 L, RDW Std Deviation 47.1 H, RDW Coeff of [place] 13.5, Plt Count 189, MPV 10.9, Immature Gran % (Auto) 0.300, Neut % (Auto) 73.7 H, Lymph % (Auto) 15.0 L, [place] % (Auto) 8.5, Eos % (Auto) 2.0, Baso % (Auto) 0.5, Absolute Neuts (auto) 4.9, Absolute Lymphs (auto) 0.99, Nucleated RBC % 0, PT 14.3, INR 1.1, APTT 35.2, Sodium 140, Potassium 4.0, Chloride 107, Carbon Dioxide 30.0, Anion Gap 3 L, BUN 17, Creatinine 1.22, Estim Creat Clear Calc 67.53, Est GFR (MDRD) Af Amer 75, Est GFR (MDRD) Non-Af 62, BUN/Creatinine Ratio 13.9, Glucose 84, Calcium 9.4, Total Bilirubin 0.50, AST 20, ALT 32, Alkaline Phosphatase 64, Troponin I High Sens 11, Total Protein 6.9, Albumin 3.2, Globulin 3.7, Albumin/Globulin Ratio 0.9 08/25/23 21:55: Urine Color Yellow, Urine Clarity Sl. Cloudy, Urine pH 6.0, Ur Specific Ary 1.020, Urine Protein 30 H, Urine Glucose (UA) Normal, Urine Ketones 5 H, Urine Occult Blood Negative, Urine Nitrite Negative, Urine Bilirub in Negative, Urine Urobilinogen 1 H, Ur Leukocyte Esterase Negative, Urine RBC 0-5 SEEN, Urine WBC 0 SEEN, Ur Squamous Epith Cells 0 SEEN, Urine Bacteria 0 SEEN, Urine Mucus 0 SEEN 08/25/23 22:10: Troponin I High Sens 11 Micro: Microbiology 08/25/23 19:45 Mucosa - Nose SARS-CoV-2, Influenza & RSV (PCR) - Final Imaging Radiology Impression Brain CT 08/25/23 19:51 IMPRESSION: Involutional changes, otherwise normal CT brain for age. Electronically Signed: Sherie Nieto MD at 20:57 EST Reading Location ID and State: [email or web address] / [place] , Service support , Chest X-Ray 08/25/23 20:00 IMPRESSION: Cannot exclude mild vascular congestion versus vascular crowding from decreased inspiration. Otherwise no acute cardiopulmonary disease. Electronically Signed: Sherie Nieto MD at 20:53 EST , Assessment & Plan Assessment/Plan (1) TIA (transient ischemic attack): PLAN: Plan This is a 73-year-old gentleman being admitted for expressive aphasia/TIA. 1. TIA: Patient's symptoms have resolved. Currently NIH stroke 0. Patient admitted in PCU under observation status. Patient has contraindication of MRI including AICD and right ankle is closed and plate and left ankle but ordered to check with the radiologist/photovoltaic fabrication technician. Patient also has IV contrast allergy therefore cannot have CTA of head and neck. Carotid Doppler and echo ordered. PT, OT, speech therapy/swallow evaluation and management, nursing NIH stroke scale, BP and glucose monitoring and control as per stroke protocol. TSH, A1c fasting lipid profile tomorrow AM. At most, CT head repeat ordered about 4 PM. Patient also has allergy to atorvastatin but he is on pravastatin. Patient already on baby aspirin and Plavix. 2. Coronary artery status post multiple cardiac stents, chronic combined systolic and diastolic heart failure status post AICD, sick sinus syndrome: Patient Home medications continued. Patient on baby aspirin Plavix Coreg and pravastatin. Patient follows Dr. Dial.Last echo in September 2020 shows EF 30% with stage I diastolic dysfunction. 3. History of prostate cancer, prostatic seeds: Advised outpatient follow-up. 4. Chronic sarcoidosis: Patient follows in pulmonary clinic with Dr. Treadwell. Last office visit was in May 2022 stated clinically stable. 5. Obesity grade 3: BMI 36.0: Weight loss counseling advised. DVT prophylaxis enoxaparin 40 mill subcu daily. DVT prophylaxis Living will/advanced directive/end of life care: Patient does have living will or advanced directive. Does not have dilated power of trust and estates attorney for health. After discussion of benefits/risks procedures involved with full code, DNR CC arrest and DNR CC, the patient opted for full code. Patient does want artificial life support including intubation, tube feed, ventilator and/chest compression, central venous catheter, vasopressor and DC shock if needed Total time spent in [id number] encounter in discussion of advanced directive 17 minutes. Microbiology Past 72 Hours 08/25/23 19:45 Mucosa - Nose SARS-CoV-2, Influenza & RSV (PCR) - Final Laboratory Results 08/25/23 19:45: WBC 6.6, RBC 4.75, Hgb 13.8, Hct 44.8, MCV 94.3 H, MCH 29.1, MC HC 30.8 L, RDW Std Deviation 47.1 H, RDW Coeff of [place] 13.5, Plt Count 189, MPV 10.9, Immature Gran % (Auto) 0.300, Neut % (Auto) 73.7 H, Lymph % (Auto) 15.0 L, [place] % (Auto) 8.5, Eos % (Auto) 2.0, Baso % (Auto) 0.5, Absolute Neuts (auto) 4.9, Absolute Lymphs (auto) 0.99, Nucleated RBC % 0, PT 14.3, INR 1.1, APTT 35.2, Sodium 140, Potassium 4.0, Chloride 107, Carbon Dioxide 30.0, Anion Gap 3 L, BUN 17, Creatinine 1.22, Estim Creat Clear Calc 67.53, Est GFR (MDRD) Af Amer 75, Est GFR (MDRD) Non-Af 62, BUN/Creatinine Ratio 13.9, Glucose 84, Calcium 9.4, Total Bilirubin 0.50, AST 20, ALT 32, Alkaline Phosphatase 64, Troponin I High Sens 11, Total Protein 6.9, Albumin 3.2, Globulin 3.7, Albumin/Globulin Ratio 0.9 08/25/23 21:55: Urine Color Yellow, Urine Clarity Sl. Cloudy, Urine pH 6.0, Ur Specific Ary 1.020, Urine Protein 30 H, Urine Glucose (UA) Normal, Urine Ketones 5 H, Urine Occult Blood Negative, Urine Nitrite Negative, Urine Bilirubin Negative, Urine Urobilinogen 1 H, Ur Leukocyte Esterase Negative, Urine RBC 0-5 SEEN, Urine WBC 0 SEEN, Ur Squamous Epith Cells 0 SEEN, Urine Bacteria 0 SEEN, Urine Mucus 0 SEEN 08/25/23 22:10: Troponin I High Sens 11 Clinical Impression(s) from Imaging Studies Brain CT 08/25/23 19:51 IMPRESSION: Involutional changes, otherwise normal CT brain for age. Electronically Signed: Sherie Nieto MD at 20:57 EST Reading Location ID and State: [address] [place] [address] , Service support , Chest X-Ray 08/25/23 20:00 IMPRESSION: Cannot exclude mild vascular congestion versus vascular crowding from decreased inspiration. Otherwise no acute cardiopulmonary disease. Electronically Signed: Charges/Coding Visit Charges Inpatient E&M: 54166 Init Hosp L3 Procedures Hospitalists Procedures: 69024 Advncd Care Plan 30 Min
[2023-08-25 23:00] VITALS: BP 149/108; PULSE 75; RESP 21; O2SAT 97
--- OUTSIDE RECORDS SUMMARY | 2023-08-25 23:28 | XMS RPT_ITS | CCD ---
Author Name Unknown Address [address] [facility] [address] [place] [address] Organization [facility] Care Team Providers Care Spanish Linguist Name Role Phone Ana Maria Guillen MD [...] atorvastatin; Translations: [ATORVASTATIN] Drug Allergy 0 Intolerance [facility] (20 sources) Pollen; Translations: [POLLEN EXTRACTS] Drug Allergy 6 Other: See Comments [facility] (20 sources) Simvastatin; Translations: [SIMVASTATIN] Drug Allergy 0 Myalgia [facility] (20 sources) traZODone; Translations: [TRAZODONE] Drug Allergy 1 Other: See Comments [facility] Work Phone: (20 sources) CATH DYE [Other] Propensity to adverse reactions 5 Anaphylaxis [facility] (20 sources) Pravastatin; Translations: [PRAVASTATIN] Drug Allergy 2 Myalgia [facility] Work Phone: (3 sources) Iodine; Translations: [IODINE] Drug Allergy 4 Anaphylaxis [facility] Work Phone: (1 source) OTHER; Translations: [OTHER] Propensity to adverse reactions (disorder) 5 [facility] Repository Medications Current Medications Medication Drug Class(es) Dates Sig (Normalized) Sig (Original) [id number] 200 actuat albuterol 0.09 mg/actuat metered dose [...] Coronary atherosclerosis; Translations: [Atherosclerotic heart disease of [place] coronary artery without angina pectoris] Onset: 12-22-2016 [...] 36.0 to 36.9 in adult ([facility])] Onset: 12-17-2022 Chronic Other nutritional; endocrine; and metabolic disorders (1 source) Body mass index (BMI) 36.0-36.9, adult; Translations: [Class 2 severe obesity due to excess calories with serious comorbidity and body mass index (BMI) of 36.0 to 36.9 in adult ([facility])] Onset: 12-17-2022 Chronic Other skin disorders [...] cm Ana Maria Guillen MD Work Phone: [facility] 08-24-2023 13:48-0500 Body weight 110.68 kg Ana Maria Guillen MD Work Phone: [facility] 08-24-2023 13:48-0500 Diastolic blood pressure 74 mm[Hg] Ana Maria Guillen MD Work Phone: [facility] 08-24-2023 13:48-0500 Heart rate 74 /min AnaM aria Guillen MD Work Phone: [facility] 08-24-2023 13:48-0500 Respiratory rate 16 /min Ana Maria Guillen MD Work Phone: [facility] 08-24-2023 13:48-0500 Systolic blood pressure 120 mm[Hg] Ana Maria Guillen MD Work Phone: [facility] 12-16-2022 14:10-0400 Body weight 105.23 kg Ana Maria Guillen MD Work Phone: [facility] 12-16-2022 14:10-0400 Diastolic blood pressure 66 mm[Hg] Ana Maria Guillen MD Work Phone: [facility] 12-16-2022 14:10-0400 Heart rate 72 /min Ana Maria Guillen MD Work Phone: [facility] 12-16-2022 14:10-0400 Respiratory rate 16 /min Ana Maria Guillen MD Work Phone: [facility] 12-16-2022 14:10-0400 SaO2% (BldA) [Mass fraction] 94 % Ana Maria Guillen MD Work Phone: [facility] 12-16-2022 14:10-0400 Systolic blood pressure 118 mm[Hg] Ana Maria Guillen MD Work Phone: [facility] 06-17-2022 10:54-0500 Body weight 104.51 kg Ana Maria Guillen MD Work Phone: [facility] 06-17-2022 10:54-0500 Diastolic blood pressure 72 mm[Hg] Ana Maria Guillen MD Work Phone: [facility] 06-17-2022 10:54-0500 Heart rate 71 /min Ana Maria Guillen MD Work Phone: [facility] 06-17-2022 10:54-0500 Respiratory rate 16 /min Ana Maria Guillen MD Work Phone: [facility] 06-17-2022 10:54-0500 SaO2% (BldA) [Mass fraction] 98 % Ana Maria Guillen MD Work Phone: [facility] 06-17-2022 10:54-0500 Systolic blood pressure 118 mm[Hg] Ana Maria Guillen MD Work Phone: [facility] 02-17-2022 16:00-0400 Body temperature 97.7 [degF] Brisa Layton APRN.PERFORMANCE SPECIALIST Work Phone: [facility] 02-17-2022 16:00-0400 Body weight 104.87 kg Brisa Layton APRN.PERFORMANCE SPECIALIST Work Phone: [facility] 02-17-2022 16:00-0400 Diastolic blood pressure 80 mm[Hg] Brisa Layton APRN.PERFORMANCE SPECIALIST Work Phone: [facility] 02-17-2022 16:00-0400 Heart rate 88 /min Brisa Layton APRN.PERFORMANCE SPECIALIST Work Phone: [facility] 02-17-2022 16:00-0400 Respiratory rate 20 /min Brisa Layton APRN.PERFORMANCE SPECIALIST Work Phone: [facility] 02-17-2022 16:00-0400 SaO2% (BldA) [Mass fraction] 93 % Brisa Layton APRN.PERFORMANCE SPECIALIST Work Phone: [facility] 02-17-2022 16:00-0400 Systolic blood pressure 116 mm[Hg] Brisa Layton HAIR ASSISTANT.PERFORMANCE SPECIALIST Work Phone: [facility] 01-28-2022 13:00-0400 Body temperature 97.7 [degF] Zulema Athy PA-C Work Phone: [facility] 01-28-2022 13:00-0400 Body weight 107.41 kg Zulema Athy PA-C Work Phone: [facility] 01-28-2022 13:00-0400 Diastolic blood pressure 82 mm[Hg] Zulema Athy PA-C Work Phone: [facility] 01-28-2022 13:00-0400 Heart rate 76 /min Zulema Athy PA-C Work Phone: [facility] 01-28-2022 13:00-0400 Respiratory rate 16 /min Zulema Athy PA-C Work Phone: [facility] 01-28-2022 13:00-0400 SaO2% (BldA) [Mass fraction] 95 % Zulema Athy PA-C Work Phone: [facility] 01-28-2022 13:00-0400 Systolic blood pressure 110 mm[Hg] Zulema Athy PA-C Work Phone: [facility] 12-06-2021 08:15-0400 Body weight 110.5 kg Molly Gaines HAIR ASSISTANT.PERFORMANCE SPECIALIST Work Phone: [facility] 12-06-2021 08:15-0400 Diastolic blood pressure 70 mm[Hg] Molly Delcidlogcarmina HAIR ASSISTANT.PERFORMANCE SPECIALIST Work Phone: [facility] 12-06-2021 08:15-0400 Heart rate 78 /min Molly Podlogar HAIR ASSISTANT.PERFORMANCE SPECIALIST Work Phone: [facility] 12-06-2021 08:15-0400 Respiratory rate 20 /min Molly Podlogar HAIR ASSISTANT.PERFORMANCE SPECIALIST Work Phone: [facility] 12-06-2021 08:15-0400 SaO2% (BldA) [Mass fraction] 95 % Molly Podlogar HAIR ASSISTANT.PERFORMANCE SPECIALIST Work Phone: [facility] 12-06-2021 08:15-0400 Systolic blood pressure 122 mm[Hg] Molly Podlogar HAIR ASSISTANT.PERFORMANCE SPECIALIST Work Phone: [facility] Encounters Encounter Date Encounter Type Care Provider Facility Start: 08-24-2023 End: 08-25-2023 ambulatory ANA MARIA GUILLEN Facility:[facility] Start: 08-24-2023 Telephone encounter Sanju Guillen MD Work Phone: [facility] Procedures Date Procedure Procedure Detail Performing Clinician Start: 12-16-2022 Lipid 1996 panel - S kendal or Plasma Ana Maria Guillen MD Work Phone: Start: 06-17-2022 [employer] COVI D-19 BIVALENT BOOSTER VACCINE, AGE 12+ YR Ana Maria Guillen MD Work Phone: Start: 05-01-2021 Adult depression screening assessment Molly Gaines HAIR ASSISTANT.PERFORMANCE SPECIALIST Work Phone: Start: 08-23-2018 Colonoscopy Molly dozier HAIR ASSISTANT.PERFORMANCE SPECIALIST Work Phone: Plan of Treatment Date Care Activity Detail Author Start: 08-23-2028 Colonoscopy COLONOSCOPY [facility] Start: 08-23-2028 COLORECTAL CANCER SCREENING COLORECTAL CANCER SCREENING [facility] Start: 08-23-2028 Screening for malignant neoplasm of colon [facility] Start: 12-17-2027 Lipid 1996 panel - Serum or Plasma Lipid Screening [facility] Start: 12-17-2027 Lipid panel Lipid Screening [facility] Start: 12-17-2027 LIPID SCREEN LIPID SCREEN [facility] Start: 06-17-2027 LIPID SCREEN LIPID SCREEN [facility] Start: 09-18-2026 LIPID SCREEN LIPID SCREEN [facility] Start: 08-24-2026 Diabetes Screening Diabetes Screening [facility] Start: 12-23-2025 DIABETES SCREEN DIABETES SCREEN [facility] Start: 12-23-2025 Diabetes Screening Diabetes Screening [facility] Start: 12-17-2025 Urine microalbumin profile [facility] Start: 12-16-2025 DIABETES SCREEN DIABETES SCREEN [facility] Start: 06-17-2025 DIABETES SCREEN DIABETES SCREEN [facility] Start: 08-24-2024 Annual PCP Team Chronic Disease Visit Annual PCP Team Chronic Disease Visit [facility] Start: 08-24-2024 BP Controlled (<130/80) BP Controlled (<130/80) [facility] Start: 05-01-2024 DIABETES SCREEN DIABETES SCREEN [facility] Start: 12-17-2023 ANNUAL PCP TEAM CHRONIC DISEASE VISIT ANNUAL PCP TEAM CHRONIC DISEASE VISIT [facility] Start: 12-17-2023 BP CONTROLLED (<130/80) BP CONTROLLED (<130/80) [facility] Start: 12-17-2023 Hepatitis B surface antibody level LDL CHOLESTEROL [facility] Start: 2023 Advance Directive Discussion Advance Directive Discussion [facility] Start: 2023 Depression Assessment Depression Assessment [facility] Start: 06-17-2023 ANNUAL PCP TEAM CHRONIC DISEASE VISIT ANNUAL PCP TEAM CHRONIC DISEASE VISIT [facility] Start: 06-17-2023 BP CONTROLLED (<130/80) BP CONTROLLED (<130/80) [facility] Start: 06-17-2023 Hepatitis B surface antibody level LDL CHOLESTEROL [facility] Start: 03-20-2023 Covid-19 Vaccine ( season) Covid-19 Vaccine ( season) [facility] Start: 03-20-2023 Influenza vaccination [facility] Start: 12-17-2022 End: 02-16-2023 Comprehensive metabolic 2000 panel - Serum or Plasma COMP METABOLIC PANEL Lab Routine NANI (acute kidney injury) (HCC) Expected: 12/17/2022, Expires: 02/16/2023 [facility] Work Phone: Immunizations Immunization Date Immunization Notes Care Provider Fa cility 06-17-2022 COVID-19 booster vaccine, age 12+ yr, bivalent (PFIZER-BIONTECH) Ana Maria Guillen MD Work Phone: [facility] 03-11-2022 influenza (aIIV4) vaccine, age 65+ yr, quadrivalent, PF (FLUAD QUADRIVALENT) Ana Maria Guillen MD Work Phone: [facility] 03-11-2022 influenza virus vaccine, unspecified formulation Ana Maria Guillen MD Work Phone: [facility] 01-06-2022 COVID-19 vaccine, booster dose (MODERNA) Ana Maria Guillen MD Work Phone: [facility] 05-01-2021 influenza, high-dose , quadrivalent vaccine (FLUZONE HIGH DOSE QUADRIVALENT) Molly Podlogar HAIR ASSISTANT.PERFORMANCE SPECIALIST Work Phone: [facility] 10-03-2020 COVID-19 vaccine, fu ll dose (MODERNA) Molly Podlogar HAIR ASSISTANT.PERFORMANCE SPECIALIST Work Phone: [facility] 09-05-2020 COVID-19 vaccine, fu ll dose (MODERNA) Molly Podlogar HAIR ASSISTANT.PERFORMANCE SPECIALIST Work Phone: [facility] 06-04-2020 influenza, high-dose , quadrivalent vaccine (FLUZONE HIGH DOSE QUADRIVALENT) Molly Podlogar HAIR ASSISTANT.PERFORMANCE SPECIALIST Work Phone: [facility] Work Phone: 05-23-2019 influenza, high dose seasonal, preservative-free Molly Podlogar HAIR ASSISTANT.PERFORMANCE SPECIALIST Work Phone: [facility] 12-16-2018 zoster vaccine recombinant Molly Podlogar HAIR ASSISTANT.PERFORMANCE SPECIALIST Work Phone: [facility] 07-06-2018 influenza, high dose seasonal, preservative-free Molly Podlogar HAIR ASSISTANT.PERFORMANCE SPECIALIST Work Phone: [facility] 07-06-2018 pneumococcal polysaccharide vaccine, 23 valent Molly Podlogar HAIR ASSISTANT.PERFORMANCE SPECIALIST Work Phone: [facility] 07-06-2018 Seasonal trivalent influenza vaccine, adjuvanted, preservative free Molly Podlogar HAIR ASSISTANT.PERFORMANCE SPECIALIST Work Phone: [facility] Work Phone: 05-25-2018 zoster vaccine recombinant Molly Podlogar HAIR ASSISTANT.PERFORMANCE SPECIALIST Work Phone: [facility] 06-18-2017 influenza, high dose seasonal, preservative-free Molly Podlogar HAIR ASSISTANT.PERFORMANCE SPECIALIST Work Phone: [facility] 06-18-2017 influenza, seasonal, injectable, preservative free Molly Podlogar HAIR ASSISTANT.PERFORMANCE SPECIALIST Work Phone: [facility] Work Phone: 06-18-2017 pneumococcal conjuga te vaccine, 13 valent Molly Podlogar HAIR ASSISTANT.PERFORMANCE SPECIALIST Work Phone: [facility] 09-18-2016 pneumococcal conjuga te vaccine, 13 valent Molly Podlogar HAIR ASSISTANT.PERFORMANCE SPECIALIST Work Phone: [facility] 12-18-2015 tetanus and diphther ia toxoids, adsorbed, preservative free, for adult use (5 Lf of tetanus toxoid and 2 Lf of diphtheria toxoid) Molly Podlogar HAIR ASSISTANT.[facility] Work Phone: [facility] 03-02-2009 tetanus toxoid, redu sherice diphtheria toxoid, and acellular pertussis vaccine, adsorbed Molly Podlogar HAIR ASSISTANT.[facility] Work Phone: [facility] Payers Date Payer Category Payer Private Health Insurance [facility] AARP SUPPLEMENT [id number] 2017-Present [phone] [address] [place] [address] Indemnity [id number] 2017 Private Health Insurance [facility] AARP SUPPLEMENT [id number] 2017-Present [phone] [address] [place] [address] Indemnity [id number] 2017 Unknown [id number] 2016 Medicare MEDICARE MEDICAR E A AND B [id number] 2016-Present [phone] [place] [address] Medicare [id number] 2016 Medicare MEDICARE MEDICAR E A AND B [id number] 2016-Present [phone] [place] [address] Medicare [id number] 2016 Medicare [id number] Social History Date Type Detail Facility Start: 09-26-2011 End: 06-17-2022 Tobacco smoking status NHIS Never smoked tobacco [facility] Start: 09-26-2011 End: 06-17-2022 Tobacco use and exposure Smokeless tobacco non-user [facility] Start: 12-06-2021 End: 08-24-2023 Alcohol intake Current drinker of alcohol (finding) [facility] Start: 12-06-2021 End: 12-16-2022 Alcohol intake [facility] Start: 12-14-2019 History SDOH Alcohol Frequency 5 [facility] Start: 12-14-2019 End: 07-25-2020 History SDOH Alcohol Std Drinks 1 [facility] Start: 12-14-2019 History SDOH Alcohol Binge 3 [facility] Start: 12-14-2019 History SDOH Social Connections Get Together 4 [facility] Start: 12-14-2019 End: 07-25-2020 History SDOH Physical Activity DPW 2 [facility] Start: 12-14-2019 Education 15 [facility] Start: 1950 Sex Assigned At Not on file C [facility] Start: 11-25-2021 End: 06-17-2022 Exposure to SARS-CoV-2 (event) Not sure [facility] Start: 07-25-2020 End: 12-16-2022 Tobacco use panel [facility] National Score (1-10 0), lower number is lower risk 75 [facility] Do you belong to any clubs or organizations such as spiritism groups, unions, fraternal or athletic groups, or school groups? Yes [facility] Are you now , , , , never or living with a partner? [facility] How often to you hav e a drink containing alcohol? 4 or more times a week [facility] How many standard dr inks containing alcohol do you have on a typical day? 1 or 2 [facility] How often do you hav e 6 or more drinks on 1 occasion? Monthly [facility] Do you feel stress - tense, restless, nervous, or anxious, or unable to sleep at night because your mind is troubled all the time - these days [OSQ] To some extent [facility] (I/We) worried whenuzhat er (my/our) food would run out before (I/we) got money to buy more. Never true [facility] In the past 12 month s, was there a time when you were not able to pay the mortgage or rent on time? No [facility] How often do you hav e 6 or more drinks on 1 occasion? Monthly [facility] Clinical Notes 02-04-2011 to 08-24-2023 Telephone Encounter - Marissa Thompson RN - 08/24/2023 4:55 PM ESTTelephone Encounter - Marissa Thompson RN - 08/24/2023 4:54 PM Ana Maria Jimenez MD - 08/24/2023 1:49 PM EST Note Date & Type Note Facility 08-24-2023 Note HNO ID: [id number] Author: NINA MARISCAL RT(R) Service: Radiology Author Type: Technologist Type: Progress Notes Filed: 08/24/2023 15:07 Note Text: Radiology Service Progress Note PATIENT NAME: Malcolm Ho DATE OF SERVICE: August 24, 2023 [...] PATIENT PRESENTS WITH AN IMPLANTABLE OR ATTACHED CONCESSIONS MANAGER: No RADIOLOGY DEPARTMENT: General X-ray: Exam(s) Completed: Chest X-Ray PERIPHERAL IV DATA: Not applicable SIGNED BY: Nina Mariscal RT(R) August 24, 2023 2:53 PM [facility] 08-24-2023 Miscellaneous Notes Pt called and [...] treatment as discussed. documented in this encounter [facility] 08-24-2023 History of Presen t [...] in September. Next appointment with pulmonology at [facility] is not for several months. He has not spoken to either of them about these symptoms. Symptoms gradually improving. Refusing EKG. Past medical history, appointments, medications, allergies reviewed. Previous Medical History PAST MEDICAL HISTORY Diagnosis Date Acute myocardial infarction of other specified sites Myocardial Infarction(2004, 1992) Atherosclerotic heart disease of [place] coronary artery without angina pectoris BPH (benign [...] ICD10: E55.9 - VITAMIN D 25 HYDROXY Ana Maria Guillen MD documented in this encounter [facility] 05-11-2023 Miscellaneous Notes MADELYN: 12/16/22 with PCP NOV: 06/23/23-6 month F/U with [facility] Last refill: ramipril 01/19/23 With 90 and 0 refills Coreg 07/16/22 with 180 and 1 refills Tori Min MA documented in this encounter [facility] 04-02-2023 Miscellaneous Notes Patient phones requesting refills as follows: Requested Prescriptions Pending Prescriptions Disp Refills tamsulosin (FLOMAX) 0.4 mg 90 capsule 1 Sig: Take 1 capsule by mouth once daily. [facility]-12/16/22 Labs-12/23/22May-06/23/23 Please review and advise. Marissa Burciaga LPN documented in this encounter [facility] 02-16-2023 Miscellaneous Notes Patient has been identified by name and date of : Yes Patient phones for refill(s): Requested Prescriptions Pending Prescriptions Disp Refills FLUoxetine (PROZAC) 20 mg capsule 90 capsule 1 Sig: Take 1 capsule by mouth once daily. Date of last office visit in primary care: [facility] 12/16/22 06/23/23 Last 2 Encounter Wt Readings: Date: Wt: 12/16/2022 105.2 kg (232 lb) 12/10/2022 104.5 kg (230 lb 6.4 oz) Please advise. Thank you. ANDRE Dhillon documented in this encounter [facility] 01-30-2023 Miscellaneous Notes Patient has been identified by name and date of : Yes [facility]-12/16/22 Labs-12/23/22May-06/23/23 RX INSTRUCTIONS: Patient aware RX will be sent to pharmacy. No need to notify patient. Patient phones requesting refills as follows: Requested Prescriptions Pending Prescriptions Disp Refills hydrOXYzine pamoate (VISTARIL) 25 mg capsule 90 capsule 1 Sig: Take 1 capsule by mouth at bedtime as needed (insomnia). Please review and advise. Annabelle Matta documented in this encounter [facility] 01-17-2023 Miscellaneous Notes Patient has [...] Luisa Urrutia LPN documented in this encounter [facility] 01-01-2023 Note HNO ID: [id number] Author: Eufemia Carmona Ma Service: ? Author [...] pad. Patient verbalized understanding. Eufemia Carmona Ma [facility] 01-01-2023 Note HNO ID: [id number] Author: Clinton Quinn MD Service: ? Author Type: Physician Type: Progress Notes Filed: 02/01/2023 9:38 PM Note Text: Clinton Quinn MD Department of Orthopaedics Orthopaedics [address] [facility] [address] Dept: [phone] Dept January 01, 2023 CHIEF COMPLAINT: Pain [...] avulsion; please clinically correlate. Soft tissue swelling. 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 Tredawell Hyperlipidemia Ischemic cardiomyopathy Dr. Dial Obesity 03/17/2013 [...] RPR/TRAUMATIC AV FISTULA (more content not included)... [facility] 01-01-2023 History of Presen t illness [...] MD Department of Orthopaedics [facility] [address] [facility] [address] Dept: [phone] Dept January 01, 2023 CHIEF COMPLAINT: Pain [...] avulsion; please clinically correlate. Soft tissue swelling. Import Dispatcher: PSCB Transcribe Date/Time: Dec 10 2022 12:08P [...] Myocardial Infarction(2004, 1992) Atherosclerotic heart disease of [place] coronary artery without angina pectoris BPH (benign [...] via [place] mail. Ana Maria Guillen MD [address] [id number] Clinton Quinn MD documented in this encounter [facility] 12-24-2022 Miscellaneous Notes Mychart message sent. Maria G Francis MA ----- Message from Ana Maria Guillen MD sent at 12/24/2022 8:04 AM EDT ----- Normal labs and urine studies. Kidney function has improved back to normal. No change in regimen based on these results. documented in this encounter [facility] 12-17-2022 Miscellaneous Notes Patient telephoned. Gone over results and recommendations below. Voices understanding. Lab appointment scheduled for next Thursday. Kate Blankenship LPN Total cholesterol in good range with LDL above goal of <70. Patient intolerant to statins. Should follow up with his intelligence manager about combination medication they discussed. Blood counts [...] more at night. documented in this encounter [facility] 12-16-2022 Note HNO ID: [id number] Author: Ana Maria Guillen MD Service: ? [...] rx for this and will call his intelligence manager about new med. Denies chest pain, SOB, [...] Myocardial Infarction(2004, 1992) Atherosclerotic heart disease of [place] coronary artery without angina pectoris BPH (benign [...] Take 1 tablet (more content not included)... [facility] 12-16-2022 History of Presen t illness [...] rx for this and will call his intelligence manager about new med. Denies chest pain, SOB, [...] Myocardial Infarction(2004, 1992) Atherosclerotic heart disease of [place] coronary artery without angina pectoris BPH (benign [...] PRN. Continue current regimen. 2. Atherosclerosis of [place] coronary artery of [place] heart without angina pectoris - ICD9: 414.01, [...] Maria Guillen MD documented in this encounter [facility] 12-10-2022 Note HNO ID: [id number] Author: RT Jolie(R) Service: Nuclear Medicine Author [...] RT Jolie(R) December 10, 2022 11:23 AM [facility] 05-24-2023 Note HNO ID: [id number] Author: Robert Lancaster APRN.PERFORMANCE SPECIALIST Service: ? Author Type: Nurse Practitioner Type: [...] Myocardial Infarction(2004, 1992) Atherosclerotic heart disease of [place] coronary artery without angina pectoris BPH (benign [...] for chest pain. (more content not included)... [facility] 09-01-2022 Miscellaneous Notes Made aware that Rx comes from Cardiology office. Understood. Tiffani Menchaca Ma documented in this encounter [facility] 08-21-2022 Miscellaneous Notes Patient phones requesting refills as follows: Requested Prescriptions Pending Prescriptions Disp Refills ramipril (ALTACE) 10 mg capsule 90 capsule 0 Sig: Take 1 capsule by mouth once daily. MADELYN-06/17/22 Labs-06/17/22May-12/16/22 med filled 05/21/22 Please review and advise. Marissa Burciaga LPN documented in this encounter [facility] 08-21-2022 Miscellaneous Notes Patient phones requesting refills as follows: Requested Prescriptions Pending Prescriptions Disp Refills FLUoxetine (PROZAC) 20 mg capsule 90 capsule 1 Sig: Take 1 capsule by mouth once daily. MADELYN-06/17/22 Labs-06/17/22May-12/16/22 med filled 01/27/22 Please review and advise. Marissa Burciaga LPN documented in this encounter [facility] 07-16-2022 Miscellaneous Notes Patient has been identified by name and date of : Yes Patient phones for refill(s): Requested Prescriptions Pending Prescriptions Disp Refills carvedilol (COREG) 25 mg tablet 0 Sig: Take 1 tablet by mouth twice daily. Date of last office visit in primary care: 06/17/22 Please advise. Thank you. Yazmin Heredia LPN documented in this encounter [facility] 07-16-2022 Miscellaneous Notes Patient notified, form taken to medical records, ready for hand picker Form completed and placed in outbox. Type of form: Prescription Assistance Form received via walk in When form is completed, Call patient via phone and he will hand picker application. Form has been forwarded to Physician Desk: Dr. Guillen. Patient was advised 07/07/22 that application had been received but PCP out of office until 07/15/22. Patient voiced understanding. Yecenia Piña LPN documented in this encounter [facility] 07-01-[address] [...] and advise Pt. documented in this encounter [facility] 06-20-2022 Miscellaneous Notes Images from the original note were not included. PA approved Patient was notified through [employer] Aura Grigsby Ma Prior Authorization has been completed online at [employer] , will await response. [id number] Please keep encounter open until final decision has been received and documented from insurance company. Aura Grigsby MA documented in this encounter [facility] 06-18-2022 Miscellaneous Notes Pt called [...] Molly Gaines APRN.ANJELICA documented in this encounter [facility] 06-17-2022 History of Presen t [...] Myocardial Infarction(2004, 1992) Atherosclerotic heart disease of [place] coronary artery without angina pectoris BPH (benign [...] IA Negative Negative ASSESSMENT/PLAN: 1. Atherosclerosis of [place] coronary artery of [place] heart without angina pectoris - ICD9: 414.01, [...] Maria Guillen MD documented in this encounter [facility] 05-21-2022 Miscellaneous Notes Spoke with pt and information listed below given. Pt verbalizes understanding. Apt booked. Luisa Urrutia LPN Patient is due for six moth following at the end of the month. Please assist in scheduling. Molly Gaines APRN.PERFORMANCE SPECIALIST No upcoming appointment scheduled. Kate Blankenship LPN [...] Kimberlyn Daniels Pss documented in this encounter [facility] 04-21-2022 Miscellaneous Notes Last office [...] Mervat Meraz [employer] documented in this encounter [facility] 02-27-2022 Miscellaneous Notes Last office [...] G Byrd Pss documented in this encounter [facility] 02-18-2022 Miscellaneous Notes Notified patient of positive herpes results. Patient will follow up if anything worsens. Patient is past the treatment time frame and is aware of this. documented in this encounter [facility] 02-17-2022 History of Presen t [...] history is provided by the patient. No furniture packer was used. Review of Systems Constitutional: Negative. [...] Myocardial Infarction(2004, 1992) Atherosclerotic heart disease of [place] coronary artery without angina pectoris BPH (benign [...] Brisa Layton APRN.ANJELICA documented in this encounter [facility] 01-28-2022 History of Presen t illness Narrative This note was created using [employer]. Subjective Malcolm Ho is a 71 year [...] Myocardial Infarction(2004, 1992) Atherosclerotic heart disease of [place] coronary artery without angina pectoris BPH (benign [...] Zulema Watson PA-C documented in this encounter [facility] 01-27-2022 Miscellaneous Notes Duplicate request Molly Gaines APRN.CNP Last office visit: 12/06/21 F/u scheduled: none Kathy Armas Ma documented in this encounter [facility] 12-06-2021 History of Presen t [...] Myocardial Infarction(2004, 1992) Atherosclerotic heart disease of [place] coronary artery without angina pectoris BPH (benign [...] of BP <130/80 - recent BMP through [facility] on 10/03/2021 normal - Recommended no refined [...] healthy oil intake diet. 5. Atherosclerosis of [place] coronary artery of [place] heart without angina pectoris - ICD9: 414.01, ICD10: I25.10 - stable - follow-up with Dr. Dial as recommended 6. Dizziness - ICD9: 780.4, ICD10: R42 - one incident which resolved quickly - reminded to stay well hydrated especially with open coming paulino weather - change positions slowly - follow-up as needed Molly Gaines APRN.PERFORMANCE SPECIALIST Prescription instructions reviewed with patient as applicable. Patient advised if symptoms do not improve or if symptoms worsen sooner, to contact their primary care physician. Potential red flag symptoms discussed with the patient. Reviewed appropriate action plan to take if red flag symptoms occur. Patient agreeable to treatment plan. documented in this encounter [facility] documented as of this encounter (statuses as of 12/06/2021) [facility] History of Past illness Narrative* Problem Noted Date Resolved Date Sprain of neck 02/04/2011 12/22/2016 Cervical strain 01/15/2011 12/22/2016 FISTULA ARTERIOVENOUS (ACQ) 11/25/200511/2016 Overview: Surgical repair in December, by Dr. Chris Pedersen Hemorrhage of gastrointestinal tract, unspecifie d 12/22/2016 documented as of this encounter (statuses as of 01/27/2022) [facility] History of Past illness Narrative* Problem Noted Date Resolved Date Sprain of neck 02/04/2011 12/22/2016 Cervical strain 01/15/2011 12/22/2016 FISTULA ARTERIOVENOUS (ACQ) 11/25/200511/2016 Overview: Surgical repair in December, by Dr. Chris Pedersen Hemorrhage of gastrointestinal tract, unspecifie d 12/22/2016 documented as of this encounter (statuses as of 01/28/2022) [facility] History of Past illness Narrative* Problem Noted Date Resolved Date Sprain of neck 02/04/2011 12/22/2016 Cervical strain 01/15/2011 12/22/2016 FISTULA ARTERIOVENOUS (ACQ) 11/25/200511/2016 Overview: Surgical repair in December, by Dr. Chris Pedersen Hemorrhage of gastrointestinal tract, unspecifie d 12/22/2016 documented as of this encounter (statuses as of 02/17/2022) [facility] History of Past illness Narrative* Problem Noted Date Resolved Date Sprain of neck 02/04/2011 12/22/2016 Cervical strain 01/15/2011 12/22/2016 FISTULA ARTERIOVENOUS (ACQ) 11/25/200511/2016 Overview: Surgical repair in December, by Dr. Chris Pedersen Hemorrhage of gastrointestinal tract, unspecifie d 12/22/2016 documented as of this encounter (statuses as of 02/18/2022) [facility] History of Past illness Narrative* Problem Noted Date Resolved Date Sprain of neck 02/04/2011 12/22/2016 Cervical strain 01/15/2011 12/22/2016 FISTULA ARTERIOVENOUS (ACQ) 11/25/200511/2016 Overview: Surgical repair in December, by Dr. Chris Pedersen Hemorrhage of gastrointestinal tract, unspecifie d 12/22/2016 documented as of this encounter (statuses as of 02/27/2022) [facility] History of Past illness Narrative* Problem Noted Date Resolved Date Sprain of neck 02/04/2011 12/22/2016 Cervical strain 01/15/2011 12/22/2016 FISTULA ARTERIOVENOUS (ACQ) 11/25/200511/2016 Overview: Surgical repair in December, by Dr. Chris Pedersen Hemorrhage of gastrointestinal tract, unspecifie d 12/22/2016 documented as of this encounter (statuses as of 04/22/2022) [facility] History of Past illness Narrative* Problem Noted Date Resolved Date Sprain of neck 02/04/2011 12/22/2016 Cervical strain 01/15/2011 12/22/2016 FISTULA ARTERIOVENOUS (ACQ) 11/25/200511/2016 Overview: Surgical repair in December, by Dr. Chris Cebul Hemorrhage of gastrointestinal tract, unspecifie d 12/22/2016 documented as of this encounter (statuses as of 05/21/2022) [facility] History of Past illness Narrative* Problem Noted Date Resolved Date Sprain of neck 02/04/2011 12/22/2016 Cervical strain 01/15/2011 12/22/2016 FISTULA ARTERIOVENOUS (ACQ) 11/25/200511/2016 Overview: Surgical repair in December, by Dr. Chris Pedersen Hemorrhage of gastrointestinal tract, unspecifie d 12/22/2016 documented as of this encounter (statuses as of 06/17/2022) [facility] History of Past illness Narrative* Problem Noted Date Resolved Date Sprain of neck 02/04/2011 12/22/2016 Cervical strain 01/15/2011 12/22/2016 FISTULA ARTERIOVENOUS (ACQ) 11/25/200511/2016 Overview: Surgical repair in December, by Dr. Chris Pedersen Hemorrhage of gastrointestinal tract, unspecifie d 12/22/2016 documented as of this encounter (statuses as of 06/18/2022) [facility] History of Past illness Narrative* Problem Noted Date Resolved Date Sprain of neck 02/04/2011 12/22/2016 Cervical strain 01/15/2011 12/22/2016 FISTULA ARTERIOVENOUS (ACQ) 11/25/200511/2016 Overview: Surgical repair in December, by Dr. Chris Pedersen Hemorrhage of gastrointestinal tract, unspecifie d 12/22/2016 documented as of this encounter (statuses as of 06/20/2022) [facility] History of Past illness Narrative* Problem Noted Date Resolved Date Sprain of neck 02/04/2011 12/22/2016 Cervical strain 01/15/2011 12/22/2016 FISTULA ARTERIOVENOUS (ACQ) 11/25/200511/2016 Overview: Surgical repair in December, by Dr. Chris Pedersen Hemorrhage of gastrointestinal tract, unspecifie d 12/22/2016 documented as of this encounter (statuses as of 06/20/2022) [facility] History of Past illness Narrative* Problem Noted Date Resolved Date Sprain of neck 02/04/2011 12/22/2016 Cervical strain 01/15/2011 12/22/2016 FISTULA ARTERIOVENOUS (ACQ) 11/25/200511/2016 Overview: Surgical repair in December, by Dr. Chris Pedersen Hemorrhage of gastrointestinal tract, unspecifie d 12/22/2016 documented as of this encounter (statuses as of 07/22/2022) [facility] History of Past illness Narrative* Problem Noted Date Resolved Date Sprain of neck 02/04/2011 12/22/2016 Cervical strain 01/15/2011 12/22/2016 FISTULA ARTERIOVENOUS (ACQ) 11/25/200511/2016 Overview: Surgical repair in December, by Dr. Chris Pedersen Hemorrhage of gastrointestinal tract, unspecifie d 12/22/2016 documented as of this encounter (statuses as of 07/22/2022) [facility] History of Past illness Narrative* Problem Noted Date Resolved Date Sprain of neck 02/04/2011 12/22/2016 Cervical strain 01/15/2011 12/22/2016 FISTULA ARTERIOVENOUS (ACQ) 11/25/200511/2016 Overview: Surgical repair in December, by Dr. Chris Pedersen Hemorrhage of gastrointestinal tract, unspecifie d 12/22/2016 documented as of this encounter (statuses as of 08/21/2022) [facility] History of Past illness Narrative* Problem Noted Date Resolved Date Sprain of neck 02/04/2011 12/22/2016 Cervical strain 01/15/2011 12/22/2016 FISTULA ARTERIOVENOUS (ACQ) 11/25/200511/2016 Overview: Surgical repair in December, by Dr. Chris Pedersen Hemorrhage of gastrointestinal tract, unspecifie d 12/22/2016 documented as of this encounter (statuses as of 08/21/2022) [facility] History of Past illness Narrative* Problem Noted Date Resolved Date Sprain of neck 02/04/2011 12/22/2016 Cervical strain 01/15/2011 12/22/2016 FISTULA ARTERIOVENOUS (ACQ) 11/25/200511/2016 Overview: Surgical repair in December, by Dr. Chris Pedersen Hemorrhage of gastrointestinal tract, unspecifie d 12/22/2016 documented as of this encounter (statuses as of 09/02/2022) [facility] History of Past illness Narrative* Problem Noted Date Resolved Date Sprain of neck 02/04/2011 12/22/2016 Cervical strain 01/15/2011 12/22/2016 FISTULA ARTERIOVENOUS (ACQ) 11/25/200511/2016 Overview: Surgical repair in December, by Dr. Chris Pedersen Hemorrhage of gastrointestinal tract, unspecifie d 12/22/2016 documented as of this encounter (statuses as of 12/17/2022) [facility] History of Past illness Narrative* Problem Noted Date Resolved Date Sprain of neck 02/04/2011 12/22/2016 Cervical strain 01/15/2011 12/22/2016 FISTULA ARTERIOVENOUS (ACQ) 11/25/200511/2016 Overview: Surgical repair in December, by Dr. Chris Pedersen Hemorrhage of gastrointestinal tract, unspecifie d 12/22/2016 documented as of this encounter (statuses as of 12/17/2022) [facility] History of Past illness Narrative* Problem Noted Date Resolved Date Sprain of neck 02/04/2011 12/22/2016 Cervical strain 01/15/2011 12/22/2016 FISTULA ARTERIOVENOUS (ACQ) 11/25/200511/2016 Overview: Surgical repair in December, by Dr. Chris Pedersen Hemorrhage of gastrointestinal tract, unspecifie d 12/22/2016 documented as of this encounter (statuses as of 12/24/2022) [facility] History of Past illness Narrative* Problem Noted Date Resolved Date Sprain of neck 02/04/2011 12/22/2016 Cervical strain 01/15/2011 12/22/2016 FISTULA ARTERIOVENOUS (ACQ) 11/25/200511/2016 Overview: Surgical repair in December, by Dr. Chris Pedersen Hemorrhage of gastrointestinal tract, unspecifie d 12/22/2016 documented as of this encounter (statuses as of 01/19/2023) [facility] History of Past illness Narrative* Problem Noted Date Diagnosed Date Resolved Date Sprain of neck 02/04/2011 12/22/2016 Cervical strain 01/15/2011 12/22/2016 FISTULA ARTERIOVENOUS (ACQ) 11/25/2005 12/22/2016 Overview: Surgical repair in December, by Dr. Chris Pedersen Hemorrhage of gastrointestin al tract, unspecified 12/22/2016 documented as of this encounter (statuses as of 01/30/2023) [facility] History of Past illness Narrative* Problem Noted Date Diagnosed Date Resolved Date Sprain of neck 02/04/2011 12/22/2016 Cervical strain 01/15/2011 12/22/2016 FISTULA ARTERIOVENOUS (ACQ) 11/25/2005 12/22/2016 Overview: Surgical repair in December, by Dr. Chris Pedersen Hemorrhage of gastrointestin al tract, unspecified 12/22/2016 documented as of this encounter (statuses as of 02/02/2023) [facility] History of Past illness Narrative* Problem Noted Date Diagnosed Date Resolved Date Sprain of neck 02/04/2011 12/22/2016 Cervical strain 01/15/2011 12/22/2016 FISTULA ARTERIOVENOUS (ACQ) 11/25/2005 12/22/2016 Overview: Surgical repair in December, by Dr. Chris Pedersen Hemorrhage of gastrointestin al tract, unspecified 12/22/2016 documented as of this encounter (statuses as of 02/16/2023) [facility] History of Past illness Narrative* Problem Noted Date Diagnosed Date Resolved Date Sprain of neck 02/04/2011 12/22/2016 Cervical strain 01/15/2011 12/22/2016 FISTULA ARTERIOVENOUS (ACQ) 11/25/2005 12/22/2016 Overview: Surgical repair in December, by Dr. Chris Pedersen Hemorrhage of gastrointestin al tract, unspecified 12/22/2016 documented as of this encounter (statuses as of 04/03/2023) [facility] History of Past illness Narrative* Problem Noted Date Diagnosed Date Resolved Date Sprain of neck 02/04/2011 12/22/2016 Cervical strain 01/15/2011 12/22/2016 FISTULA ARTERIOVENOUS (ACQ) 11/25/2005 12/22/2016 Overview: Surgical repair in December, by Dr. Chris Pedersen Hemorrhage of gastrointestin al tract, unspecified 12/22/2016 documented as of this encounter (statuses as of 05/12/2023) [facility] History of Past illness Narrative* Problem Noted Date Diagnosed Date Resolved Date Sprain of neck 02/04/2011 12/22/2016 Cervical strain 01/15/2011 12/22/2016 FISTULA ARTERIOVENOUS (ACQ) 11/25/2005 12/22/2016 Overview: Surgical repair in December, by Dr. Chris Pedersen Hemorrhage of gastrointestin al tract, unspecified 12/22/2016 documented as of this encounter (statuses as of 08/25/2023) [facility] History of Past illness Narrative* Problem Noted Date Diagnosed Date Resolved Date Sprain of neck 02/04/2011 12/22/2016 Cervical strain 01/15/2011 12/22/2016 FISTULA ARTERIOVENOUS (ACQ) 11/25/2005 12/22/2016 Overview: Surgical repair in December, by Dr. Chris Pedersen Hemorrhage of gastrointestin al tract, unspecified 12/22/2016 documented as of this encounter (statuses as of 08/25/2023) [facility] Essential hypertension, benign- Primary Chronic insomnia Insomnia, unspecified Sarcoidosis Hyperlipidemia LDL goal <100 Other and unspecified hyperlipidemia Atherosclerosis of [place] coronary artery of [place] heart without angina pectoris Dizziness Dizziness and giddiness [facility] Diagnosis Chronic anxiety Anxiety state, unspecified [facility] Diagnosis Allergic conjunctivitis of both eyes- Primary Other chronic allergic conjunctivitis [facility] Diagnosis Vesicle of skin- Primary [facility] Diagnosis Malignant neoplasm of prostate (HCC) Malignant neoplasm of prostate [facility] Diagnosis Chronic insomnia Insomnia, unspecified [facility] Diagnosis Essential hypertension, benign [facility] Diagnosis Atherosclerosis of [place] coronary artery of [place] heart without angina pectoris- Primary Class 2 [...] for COVID-19 vaccine [facility] Diagnosis Hyperlipidemia LDL goal <100- Primary Other and unspecified hyperlipidemia [facility] Diagnosis Chronic anxiety Anxiety state, unspecified [facility] Diagnosis Essential hypertension, benign [facility] Diagnosis Chronic anxiety- Primary Anxiety state, unspecified Atherosclerosis of [place] coronary artery of [place] heart without angina pectoris History of acute [...] in adult (HCC) [facility] Diagnosis NANI (acute kidney injury) (HCC)- Primary Acute kidney failure, unspecified [facility] Diagnosis Chronic insomnia Insomnia, unspecified [facility] Diagnosis Left elbow pain- Primary Pain in joint, upper arm Class 2 severe obesity due to excess calories with serious comorbidity and body mass index (BMI) of 36.0 to 36.9 in adult (HCC) [facility] Diagnosis Chronic anxiety Anxiety state, unspecified [facility] Diagnosis Benign prostatic hyperplasia with nocturia documented in this encounter [facility]* Diagnosis Essential hypertension, benign documented in this encounter [facility] note* Diagnosis SOB (shortness of breath) on exertion- Primary Shortness of breath Fatigue, unspecified type History of COVID-19 Chronic insomnia Insomnia, unspecified Chronic anxiety Anxiety state, unspecified Vitamin D deficiency, unspecified Chronic combined systolic and diastolic heart failure (HCC) Chronic combined systolic and diastolic heart failure documented in this encounter [facility] Summary Purpose Family History No [...] or prosecute any alcohol or drug abuse patient.[facility] the event this information is protected by the Federal Confidentiality of Alcohol and Drug Abuse Patient Records regulations: The Federal rules restrict any use of the information to criminally investigate or prosecute any alcohol or drug abuse patient.[facility] the event this information is protected by the Federal Confidentiality of Alcohol and Drug Abuse Patient Records regulations: The Federal rules restrict any use of the information to criminally investigate or prosecute any alcohol or drug abuse patient.[facility] the event this information is protected by the Federal Confidentiality of Alcohol and Drug Abuse Patient Records regulations: The Federal rules restrict any use of the information to criminally investigate or prosecute any alcohol or drug abuse patient.[facility] CenterIn the event this information is protected by the Federal Confidentiality of Alcohol and Drug Abuse Patient Records regulations: The Federal rules restrict any use of the information to criminally investigate or prosecute any alcohol or drug abuse patient.[facility] CenterIn the event this information is protected by the Federal Confidentiality of Alcohol and Drug Abuse Patient Records regulations: The Federal rules restrict any use of the information to criminally investigate or prosecute any alcohol or drug abuse patient.[facility] CenterIn the event this information is protected by the Federal Confidentiality of Alcohol and Drug Abuse Patient Records regulations: The Federal rules restrict any use of the information to criminally investigate or prosecute any alcohol or drug abuse patient.[facility] CenterIn the event this information is protected by the Federal Confidentiality of Alcohol and Drug Abuse Patient Records regulations: The Federal rules restrict any use of the information to criminally investigate or prosecute any alcohol or drug abuse patient.[facility] CenterIn the event this information is protected by the Federal Confidentiality of Alcohol and Drug Abuse Patient Records regulations: The Federal rules restrict any use of the information to criminally investigate or prosecute any alcohol or drug abuse patient.[facility] CenterIn the event this information is protected by the Federal Confidentiality of Alcohol and Drug Abuse Patient Records regulations: The Federal rules restrict any use of the information to criminally investigate or prosecute any alcohol or drug abuse patient.[facility] CenterIn the event this information is protected by the Federal Confidentiality of Alcohol and Drug Abuse Patient Records regulations: The Federal rules restrict any use of the information to criminally investigate or prosecute any alcohol or drug abuse patient.[facility] CenterIn the event this information is protected by the Federal Confidentiality of Alcohol and Drug Abuse Patient Records regulations: The Federal rules restrict any use of the information to criminally investigate or prosecute any alcohol or drug abuse patient.[facility] CenterIn the event this information is protected by the Federal Confidentiality of Alcohol and Drug Abuse Patient Records regulations: The Federal rules restrict any use of the information to criminally investigate or prosecute any alcohol or drug abuse patient.[facility] CenterIn the event this information is protected by the Federal Confidentiality of Alcohol and Drug Abuse Patient Records regulations: The Federal rules restrict any use of the information to criminally investigate or prosecute any alcohol or drug abuse patient.[facility] CenterIn the event this information is protected by the Federal Confidentiality of Alcohol and Drug Abuse Patient Records regulations: The Federal rules restrict any use of the information to criminally investigate or prosecute any alcohol or drug abuse patient.[facility] CenterIn the event this information is protected by the Federal Confidentiality of Alcohol and Drug Abuse Patient Records regulations: The Federal rules restrict any use of the information to criminally investigate or prosecute any alcohol or drug abuse patient.[facility] CenterIn the event this information is protected by the Federal Confidentiality of Alcohol and Drug Abuse Patient Records regulations: The Federal rules restrict any use of the information to criminally investigate or prosecute any alcohol or drug abuse patient.[facility] CenterIn the event this information is protected by the Federal Confidentiality of Alcohol and Drug Abuse Patient Records regulations: The Federal rules restrict any use of the information to criminally investigate or prosecute any alcohol or drug abuse patient.[facility] CenterIn the event this information is protected by the Federal Confidentiality of Alcohol and Drug Abuse Patient Records regulations: The Federal rules restrict any use of the information to criminally investigate or prosecute any alcohol or drug abuse patient.[facility] CenterIn the event this information is protected by the Federal Confidentiality of Alcohol and Drug Abuse Patient Records regulations: The Federal rules restrict any use of the information to criminally investigate or prosecute any alcohol or drug abuse patient.[facility] CenterIn the event this information is protected by the Federal Confidentiality of Alcohol and Drug Abuse Patient Records regulations: The Federal rules restrict any use of the information to criminally investigate or prosecute any alcohol or drug abuse patient.[facility] CenterIn the event this information is protected by the Federal Confidentiality of Alcohol and Drug Abuse Patient Records regulations: The Federal rules restrict any use of the information to criminally investigate or prosecute any alcohol or drug abuse patient.[facility] CenterIn the event this information is protected by the Federal Confidentiality of Alcohol and Drug Abuse Patient Records regulations: The Federal rules restrict any use of the information to criminally investigate or prosecute any alcohol or drug abuse patient.[facility] CenterIn the event this information is protected by the Federal Confidentiality of Alcohol and Drug Abuse Patient Records regulations: The Federal rules restrict any use of the information to criminally investigate or prosecute any alcohol or drug abuse patient.[facility] CenterIn the event this information is protected by the Federal Confidentiality of Alcohol and Drug Abuse Patient Records regulations: The Federal rules restrict any use of the information to criminally investigate or prosecute any alcohol or drug abuse patient.[facility] CenterIn the event this information is protected by the Federal Confidentiality of Alcohol and Drug Abuse Patient Records regulations: The Federal rules restrict any use of the information to criminally investigate or prosecute any alcohol or drug abuse patient.[facility] CenterIn the event this information is protected by the Federal Confidentiality of Alcohol and Drug Abuse Patient Records regulations: The Federal rules restrict any use of the information to criminally investigate or prosecute any alcohol or drug abuse patient.[facility] CenterIn the event this information is protected by the Federal Confidentiality of Alcohol and Drug Abuse Patient Records regulations: The Federal rules restrict any use of the information to criminally investigate or prosecute any alcohol or drug abuse patient.[facility] CenterIn the event this information is protected by the Federal Confidentiality of Alcohol and Drug Abuse Patient Records regulations: The Federal rules restrict any use of the information to criminally investigate or prosecute any alcohol or drug abuse patient.[facility] Reason for Visit (unrecogniz ed [...] Care Teams (unrecognized sec tion and content) Spanish Linguist Relationship Specialty Start Date End Date Ana Maria Guillen MD [address] [place] [address] PCP - General Family Practice 05/01/21 Spanish Linguist Relationship Specialty Start Date End Date Ana Maria Guillen MD [address] [place] [address] PCP - General Family Practice 05/01/21 Spanish Linguist Relationship Specialty Start Date End Date Ana Maria Guillen MD [address] [facility] [address] PCP - General Family Practice 05/01/21 Spanish Linguist Relationship Specialty Start Date End Date Ana Maria Guillen MD [address] [place] [address] PCP - General Family Practice 05/01/21 Spanish Linguist Relationship Specialty Start Date End Date Ana Maria Guillen MD [address] [place] [address] PCP - General Family Practice 05/01/21 Spanish Linguist Relationship Specialty Start Date End Date Ana Maria Guillen MD [address] [facility] [place] [address] PCP - General Family Medicine 05/01/21 Spanish Linguist Relationship Specialty Start Date End Date Ana Maria Guillen MD [address] [facility] [place] [address] PCP - General Family Medicine 05/01/21 Spanish Linguist Relationship Specialty Start Date End Date Ana Maria Guillen MD [address] [facility] [place] [address] PCP - General Family Medicine 05/01/21 Spanish Linguist Relationship Specialty Start Date End Date Ana Maria Guillen MD [address] [facility] [place] [address] PCP - General Family Medicine 05/01/21 Spanish Linguist Relationship Specialty Start Date End Date Ana Maria Guillen MD [address] [facility] [place] [address] PCP - General Family Medicine 05/01/21 Spanish Linguist Relationship Specialty Start Date End Date Ana Maria Guillen MD [address] [facility] [place] [address] PCP - General Family Medicine 05/01/21 Spanish Linguist Relationship Specialty Start Date End Date Ana Maria Guillen MD [address] [facility] [place] [address] PCP - General Family Medicine 05/01/21 Spanish Linguist Relationship Specialty Start Date End Date Ana Maria Guillen MD [address] [facility] [place] [address] PCP - General Family Medicine 05/01/21 Spanish Linguist Relationship Specialty Start Date End Date Ana Maria Guillen MD [address] [facility] [place] [address] PCP - General Family Medicine 05/01/21 Spanish Linguist Relationship Specialty Start Date End Date Ana Maria Guillen MD [address] [facility] [place] [address] PCP - General Family [facility] 05/01/21 Spanish Linguist Relationship Specialty Start Date End Date Ana Maria Guillen MD [address] [facility] [place] [address] PCP - General [facility] 05/01/21 Spanish Linguist Relationship Specialty Start Date End Date Ana Maria Guillen MD [address] [facility] [place] [address] PCP - General [facility] 05/01/21 Spanish Linguist Relationship Specialty Start Date End Date Ana Maria Guillen MD [address] [facility] [place] [address] PCP - General [facility] 05/01/21 Spanish Linguist Relationship Specialty Start Date End Date Ana Maria Guillen MD [address] [facility] [place] [address] PCP - General Family Medicine 05/01/21 (unrecognized [...] BE BASED ON THE PRIMARY CLINICAL RECORDS. [facility]. provides no warranty or guarantee of the accuracy or completeness of information in this document.
[2023-08-25 23:32] VITALS: BMI 36.0
[2023-08-25 23:54] VITALS: BP 154/85; PULSE 79; RESP 15; O2SAT 94
[2023-08-26] VITALS (8 sets, daily range): BP systolic 132–152; BP diastolic 70–97; PULSE 62–82; RESP 16–20; TEMP 36.3–36.7; O2SAT 92–98; BMI 36.0
--- NOTE | 2023-08-26 01:48 | CDU_ITS ---
Reason For Study: TIA Rt. Velocities/BP Lt. Velocities/BP Prox CCA 67.4/19.2 cm/sec. Prox CCA 83.9/21.2 cm/sec. Mid CCA 74/22 cm/sec. Mid CCA 80.6/22.3 cm/sec. Dist CCA 70.2/13.5 cm/sec. Dist CCA 79.5/21.2 cm/sec. Prox ICA 55.3/12.4 cm/sec. Prox ICA 111.7/19.7 cm/sec. Mid ICA 50.9/11.6 cm/sec. Mid ICA 89.9/14.9 cm/sec. Dist ICA 82.8/28.9 cm/sec. Dist ICA 63/21.2 cm/sec. Rt. ICA/CCA = 1.18. Lt. ICA/CCA = 1.39. Prox ECA 77.3/9.1 cm/sec. Prox ECA 93.3/12 cm/sec. Rt. Vert. 39.9/16.8 cm/sec. Lt. Vert. 54.1/12.6 cm/sec. Right Extracranial There is homogeneous, smooth atherosclerotic plaque noted in the right common carotid artery. There is heterogeneous, irregular atherosclerotic plaque noted in the right internal carotid artery. There is heterogeneous, irregular atherosclerotic plaque noted in the right external carotid artery. Antegrade flow is noted in the right vertebral artery. Left Extracranial There is homogeneous, smooth atherosclerotic plaque noted in the left common carotid artery. There is heterogeneous, irregular atherosclerotic plaque noted in the left internal carotid artery. There is heterogeneous, irregular atherosclerotic plaque noted in the left external carotid artery. Antegrade flow is noted in the left vertebral artery. Procedure Carotid Duplex 13280. This is a Carotid Duplex examination using B-mode, color flow and specral Doppler. Exam performed portable in patient room. VL/Carotid Duplex Ultrasound Interpretation Summary Mild (<50%) stenosis right extracranial internal carotid. Mild (<50%) stenosis left extracranial internal carotid. Patent and antegrade vertebrals bilaterally. Ordering Physician: Leo Bajwa Referring Physician: Joe Guillen Performed By: Heaven Arteaga RVT
--- NOTE | 2023-08-26 02:01 | ECHOCS_ITS ---
Reason For Study: TIA/CVA Procedure This was a 2D Doppler, Color Flow transthoracic echocardiogram. Contrast injection was performed. Exam performed portable in patient room. Left Ventricle Normal LV size. Mild concentric left ventricular hypertrophy. Severe apical hypokinesis. Severe inferior hypokinesis. Estimated LVEF 30%. Diastolic function is indeterminate. Right Ventricle Normal right ventricle. ICD or pacer leads identified within the right ventricle. Atria Normal left atrium. ICD or pacer leads identified within the right atrium. Bubble contrast study is negative for PFO/ASD. Mitral Valve Mild (1+) mitral valve insufficiency. Tricuspid Valve Normal tricuspid valve. Aortic Valve Trisinus/trileaflet aortic valve. There is no aortic stenosis. No aortic valve insufficiency. Pulmonic Valve The pulmonic valve is not well visualized. Trivial pulmonic valve insufficiency. Great Vessels Mildly dilated aortic root. Pericardium/Pleural No pericardial effusion. Medication Performed a rapid injection of agitated mix of 9 cc saline and 1cc air to assess for atrial septal defect. Diluted definity 2ml given slow IV push to enhance endocardial definition. MMode/2D Measurements & Calculations LVIDd: 5.3 cm IVSd: 1.4 cm LVOT diam: 2.2 cm LVIDs: 4.2 cm LVPWd: 0.74 cm RVDd: 4.2 cm FS: 20.5 % LVOT area: 3.9 cm2 Ao root diam: 3.9 cm LAV(MOD-bp): 90.1 ml LVAd ap4: 43.3 cm2 LAV(MOD-bp) Indexed: 40.1 ml/m2 LVLd ap4: 9.1 cm LAV(MOD-sp2): 108.3 ml EDV(MOD-sp4): 169.9 ml LAV(MOD-sp4): 74.6 ml EDV(sp4-el): 174.5 ml LVAs ap4: 37.9 cm2 LVLs ap4: 9.1 cm ESV(MOD-sp4): 127.5 ml ESV(sp4-el): 134.3 ml EF(MOD-sp4): 25.0 % EF(sp4-el): 23.1 % LVAd ap2: 49.2 cm2 SV(MOD-sp4): 42.4 ml SV(MOD-sp2): 54.2 ml LVLd ap2: 10.1 cm EDV(MOD-sp2): 192.4 ml EDV(sp2-el): 203.5 ml LVAs ap2: 40.4 cm2 LVLs ap2: 9.4 cm ESV(MOD-sp2): 138.2 ml ESV(sp2-el): 147.0 ml EF(MOD-sp2): 28.2 % SV(sp4-el): 40.2 ml LA dimension(2D): 3.7 cm LA A4 area: 25.2 cm2 RA A4 area: 18.5 cm2 TAPSE: 2.0 cm Time Measurements MV dec time: 0.22 sec Doppler Measurements & Calculations MV E max brent: 59.8 cm/sec Lat Peak E' Brent: 6.8 cm/sec Med Peak E' Brent: 5.2 cm/sec MV A max brent: 90.9 cm/sec E/E' lat: 8.8 E/E' med: 11.4 MV E/A: 0.66 Ao V2 max: 128.4 cm/sec LV V1 max: 114.2 cm/sec MV dec slope: 273.6 cm/sec2 Ao max P.6 mmHg LV V1 max P.2 mmHg Ao V2 mean: 89.8 cm/sec LV V1 mean P.1 mmHg Ao mean P.7 mmHg LV V1 mean: 82.4 cm/sec Ao V2 VTI: 27.2 cm LV V1 VTI: 23.8 cm AV (velocity ratio): 0.87 GALA(I,D): 3.4 cm2 GALA(V,D): 3.4 cm2 SV(LVOT): 92.0 ml PA V2 max: 101.5 cm/sec PA max PG (full): 1.9 mmHg ECHO/Echo Complete W/ Contrast Interpretation Summary Mild concentric left ventricular hypertrophy. Severe apical hypokinesis. Severe inferior hypokinesis. Estimated LVEF 30%. Diastolic function is indeterminate. Bubble contrast study is negative for PFO/ASD. Mild (1+) mitral valve insufficiency. Mildly dilated aortic root. Ordering Physician: Leo Bajwa Performed By: Lin Cassidy RDCS
[2023-08-26] MEDS: 0.9% Normal Saline (1000mL) 1,000 ML 50 ML IV (02:22)
--- NOTE | 2023-08-26 07:31 | PCM.PN.HOSP ---
Reason for Visit Reason for Visit: Diagnoses Transient cerebral ischemic attack, unspecified (08/25/23) Subjective Subjective With no acute events overnight per self and per nursing report. Patient had complete resolution of his expressive aphasia, dizziness, imbalance. He notes feeling back to his complete baseline. Discussed plan of care which included MRI, echocardiogram, carotid ultrasound to which he was amenable and fortunately no acute findings were noted. Patient denies fevers, chills, nausea, emesis, abdominal pain, chest pain or dyspnea. Objective Data Objective Data Vital Signs: Vital Signs Temp Pulse Resp BP Pulse Ox O2 Del Method 98.0 F 65 20 H 132/94 H 94 Room Air 08/26/23 06:00 08/26/23 06:00 08/26/23 06:00 08/26/23 06:00 08/26/23 06:00 08/26/23 06:00 Oxygen Delivery Method Room Air Weight: 244 lb 0.827 oz Body Mass Index (BMI) 36.0 Intake & Output: Intake and Output for Last 24 Hours 08/24/23 08/25/23 08/26/23 23:59 23:59 23:59 Intake Total 1000 / 1000 400 / 400 Balance 1000 / 1000 400 / 400 Lab / Micro Data 08/25/23 19:45 08/25/23 19:45 Labs: Laboratory Results - last 24 hr 08/25/23 19:45: WBC 6.6, RBC 4.75, Hgb 13.8, Hct 44.8, MCV 94.3 H, MCH 29.1, MCHC 30.8 L, RDW Std Deviation 47.1 H, RDW Coeff of Davon 13.5, Plt Count 189, MPV 10.9, Immature Gran % (Auto) 0.300, Neut % (Auto) 73.7 H, Lymph % (Auto) 15.0 L, [place] % (Auto) 8.5, Eos % (Auto) 2.0, Baso % (Auto) 0.5, Absolute Neuts (auto) 4.9, Absolute Lymphs (auto) 0.99, Nucleated RBC % 0, PT 14.3, INR 1.1, APTT 35.2, Sodium 140, Potassium 4.0, Chloride 107, Carbon Dioxide 30.0, Anion Gap 3 L, BUN 17, Creatinine 1.22, Estim Creat Clear Calc 67.53, Est GFR (MDRD) Af Amer 75, Est GFR (MDRD) Non-Af 62, BUN/Creatinine Ratio 13.9, Glucose 84, Calcium 9.4, Total Bilirubin 0.50, AST 20, ALT 32, Alkaline Phosphatase 64, Troponin I High Sens 11, Total Protein 6.9, Albumin 3.2, Globulin 3.7, Albumin/Globulin Ratio 0.9 08/25/23 21:55: Urine Color Yellow, Urine Clarity Sl. Cloudy, Urine pH 6.0, Ur Specific [place] 1.020, Urine Protein 30 H, Urine Glucose (UA) Normal, Urine Ketones 5 H, Urine Occult Blood Negative, Urine Nitrite Negative, Urine Bilirubin Negative, Urine Urobilinogen 1 H, Ur Leukocyte Esterase Negative, Urine RBC 0-5 SEEN, Urine WBC 0 SEEN, Ur Squamous Epith Cells 0 SEEN, Urine Bacteria 0 SEEN, Urine Mucus 0 SEEN 08/25/23 22:10: Troponin I High Sens 11 Micro: Microbiology 08/25/23 19:45 Mucosa - Nose SARS-CoV-2, Influenza & RSV (PCR) - Final Radiography Diagnostic Testing: Radiology Impression Brain CT 08/25/23 19:51 IMPRESSION: Involutional changes, otherwise normal CT brain for age. Electronically Signed: Sherie Nieto MD at 20:57 EST Reading Location ID and State: [employer] [facility] [employer] , Service support , Chest X-Ray 08/25/23 20:00 IMPRESSION: Cannot exclude mild vascular congestion versus vascular crowding from decreased inspiration. Otherwise no acute cardiopulmonary disease. Electronically Signed: Sherie Nieto MD at 20:53 EST , Physical Exam Narrative Physical Examination: General: Awake, alert, oriented x 3 and cooperative, PCU bed, no acute distress, continued complete resolution of previous neurological symptoms. Skin: Normal color, normal turgor, no icterus, no cyanosis. HEENT: AT/NC, EOMI, PERRLA, MMM. Lungs: CTA bilaterally, moderate effort, mild decrease BL bases, no rales, ronchi or wheezing. Heart: Regular rate and rhythm; no gallop, rub audible. Abdomen: Soft, NTTP, ND, normal BS. Extremities: No cyanosis, clubbing, or edema. Neurological: Patient awake, alert, oriented as noted, cognitive function intact; pupils equally reactive to light and accommodation, cranial nerves II-XII grossly normal, moving all 4 extremities, no focal deficits, strength preserved, FTN/HTS appropriate, sensation intake, negative babinski, no evidence of any further expressive aphasia, no LH/Dizziness. Psychiatric: Affect appears normal, no acute evidence of depressive or anxiety feelings. Assessment & Plan Assessment/Plan (1) TIA (transient ischemic attack): PLAN: Plan The patient is a 73 y/o M w/ PMHx: Obesity, CAD s/p PCI, Sarcoidosis, HTN, HLD, Combined HFp/HFrEF, Ischemic cardiomyopathy, Hx Prostate CA who presents to [facility] ED on 08/25/2023 with onset of dizziness, lightheadedness, imbalance with expressive aphasia. #1. Dizziness, lightheadedness, imbalance with expressive aphasia, resolved concerning for TIA: CT of the head with chronic involutional changes otherwise no acute findings, chest x-ray with possible mild vascular congestion versus vascular crowding from decrease in [place] effort with otherwise no acute cardiopulmonary disease. Admitted to PCU, given ASC device unable to obtain MRI of the brain therefore times repeat CT head obtained with again no acute intracranial findings with chronic involutional changes of the brain, carotid ultrasound performed with preliminary noted less than 50% stenosis bilaterally, ECHO with mild concentric LVH, severe apical hypokinesis with severe inferior hypokinesis with LVEF 30%, diastolic function indeterminate, bubble contrast to be negative for PFO/ASD, mild MVI, mildly dilated aortic root w/ 10/04/20 ECHO similar in function of note, PT/OT/Speech/Nutrition evaluation per protocol. Allowed permissive HTN with allowance of beta-nasima per admitting physician, maintain on asa/plavix, statin w/ AM FLP, fall precautions. Mag, TSH, FLP, HgbA1c requested. Troponin initial 11 with repeat delta 11. EKG with no acute findings. Given high risk patient neurology consulted and recommended that patient continue aspirin and Plavix. #2. Combined HFp/HFrEF, Ischemic cardiomyopathy: Status post AICD, most recent pacemaker check noted 06/26/2023, most recent echo previously noted 10/04/2020 with normal LV size, severe segmental systolic dysfunction, EF 30%, stage I diastolic dysfunction which was reported as stable from the previous, continued on aspirin, Plavix, statin, continued on Coreg but lisinopril held for permissive hypertension per admitting physician. #3. Sarcoidosis: Following with pulmonary medicine, last visit noted 05/27/[address] Treadewll, felt clinically stable at that time, encourage continued outpatient follow-up. #4. Hypertension: Given resolution of patient's symptoms admitting physician continued patient on Coreg but held ramipril temporarily with as needed agents per stroke protocol. #5. Hyperlipidemia: Continue home statin regimen. AM FLP pending. #6. Anxiety and depression: We will continue patient on fluoxetine regimen. #7. History of prostate cancer: Unclear exact interventions, considered in remission. #8. BPH: We will continue patient home Flomax regimen. #9. Obesity: Weight loss and lifestyle changes encouraged. #10. DVT prophylaxis: Lovenox. #11. CODE STATUS: Full Code. Charges/Coding Visit Charges Inpatient E&M: 98825 Subs Hosp L2
[2023-08-26] MEDS: Multivitamins,Therapeutic Tablet 1 TABLET PO (09:02)
[2023-08-26] MEDS: Calcium Carb/Vitamin D 1 TABLET Tablet PO (09:02)
[2023-08-26] MEDS: Aspirin E.C. 81 MG Tablet PO (09:02)
[2023-08-26] MEDS: Carvedilol 25 MG Tablet PO (09:02)
[2023-08-26] MEDS: Tamsulosin HCl 0.4 MG Capsule 0.400000000000000022 MG PO (09:05)
[2023-08-26] MEDS: Clopidogrel Bisulfate 75 MG Tablet PO (09:05)
[2023-08-26] MEDS: FLUoxetine 20 MG Capsule PO (09:06)
[2023-08-26] MEDS: Enoxaparin 40 MG/0.4 ML Syringe SC (09:06)
[2023-08-26] MEDS: Flu Vacc QS2023-24(65YR UP)/PF 240 MCG/0.7 ML Syringe IM (09:18)
[2023-08-26 09:22] LABS: Cholesterol 154 mg/dL (200); High Density Lipoprotein 43 mg/dL; Thyroid Stim Hormone (TSH) 1.33 uIU/mL (0.358-3.74); Triglycerides 64 mg/dL; Very Low Density Lipoprotein 13 mg/dL (5-40)
[2023-08-26 10:02] LABS: Magnesium 2.1 mg/dL (1.6-2.6)
--- NOTE | 2023-08-26 11:16 | CASEMGMT ---
SW completed a PHQ 9 with patient as he may have had a Stroke vs TIA. Patient scored a 6 which indicates mild depression. Patient stated his issues with sleeping too much he feels is related to him having Covid in June. Patient states he is also frustrated with himself as he has put on weight over Thanksgiving and Franca and he was not exercising. Patient stated when he gets out of the hospital he is going to start exercising. Patient denies any need for counseling resources. Patient has a great supportive family and patient is also a man of rayshawn. Yazmin Haynes CLIENT DEVELOPMENT MANAGER EMANUEL
[2023-08-26 11:39] LABS: Hemoglobin A1c 4.9 % (3.8-5.6)
[2023-08-26] MEDS: 0.9% Saline Lock 10 ML Syringe IV (12:48)
--- NOTE | 2023-08-26 13:00 | CT_ITS ---
STUDY: CT BRAIN WITHOUT CONTRAST REASON FOR EXAM: Male, 73 years old. TIA RADIATION DOSAGE (If Supplied By Facility): CTDIvol = ( 47.06 ) mGy, DLP = ( 907.97 ) mGycm TECHNIQUE: Transaxial CT imaging of the brain was performed without administration of intravenous contrast material. Individualized dose optimization techniques were used for this CT. COMPARISON: Comparison is made with prior study dated August 25, 2023. FINDINGS: Normal soft tissue structures. Normal calvarium. There is mild cerebral atrophy with widening of the extra-axial spaces and ventricular dilatation. Normal white matter tracts of the cerebral hemispheres. Normal basal ganglia and thalami. Normal brainstem. Normal cerebellum. There is no intracranial hemorrhage. There are no findings of an acute ischemic infarction. Normal visualized paranasal sinuses. CT/Brain/Head without Contrast IMPRESSION: Chronic involutional changes of the brain. Electronically Signed: Spenser Cruz MD at 13:11 EST ,
--- NOTE | 2023-08-26 13:32 | CON.PCM.NE_ITS ---
Assessment and Plan: Stroke Assessment/Plan CROW TALBERT, is a 73 yo RH M with history of CAD on Asa/Plavix, HL, CHF (EF 30% 09/2020), s/p AICD who on 08/25/2023 developed a transient episode of aphasia (lasted 20 minutes then resolved). CT brain negative. He was admitted to medicine. This morning he feels at baseline. LDL 98. Neurological examination nonfocal, NIHSS-0 Assessment/Plan: TIA. Unable to MRI due to AICD. Recommend CUS to complete the TIA work-up. If Carotid ultrasound negative, then TIA work-up completed and patient may DC home on stroke medical management. He is already on Asa/plavix at home. He has allergies to statin. Follow-up with PCP as outpatient. Messaged primary Dr. iSmons with my recommendations. HPI Consult Data Date of Consult: 08/26/23 HPI Narrative HPI Narrative: CROW TALBERT, is a 73 yo RH M with history of CAD on Asa/Plavix, HL, CHF (EF 30% 09/2020), s/p AICD who on 08/25/2023 developed a transient episode of aphasia (lasted 20 minutes then resolved). He had trouble getting his words out and knew what he wanted to say. He also had dizziness (light-headedness). He presented to [place] [facility]. CT brain negative. He was admitted to medicine. This morning he feels at baseline. LDL 98. He reports CUS was done this morning. He notes short term memory issues for several years, not particularly worse. Otherwise no new complaints. No ENRIQUEZ. He has allergy to Lipitor, pravastatin, and simvastatin. 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 Pneumonia Prostate CA Sarcoidosis Ventricular tachycardia Home Medications aspirin 81 mg tablet,delayed release 81 mg PO DAILY 12/23/16 [History Last Taken 05/06/17] calcium carbonate 500 mg-vitamin D3 5 mcg (200 unit) tablet 1 ea PO BID 12/23/16 [History Last Taken 05/06/17] fluoxetine 20 mg capsule 20 mg PO DAILY 12/23/16 [History Last Taken 05/06/17] multivitamin 1 ea PO DAILY 12/23/16 [History Last Taken 05/06/17] ramipril 10 mg capsule 10 mg PO DAILY 12/23/16 [History Last Taken 05/06/17] nitroglycerin 0.4 mg sublingual tablet 0.4 mg sublingual Q5M PRN Chest Pain #25 tabs 08/30/18 [Rx Last Taken Unknown] albuterol sulfate 90 mcg/actuation aerosol inhaler 2 puff inhalation Q4H PRN shortness of breath or wheezing #8.5 grams 06/28/21 [Rx Last Taken Unknown] carvedilol 25 mg tablet 25 mg PO BID #180 tabs 07/11/22 [Rx Last Taken Unknown] clopidogrel 75 mg tablet 75 mg PO DAILY #90 tabs 09/03/22 [Rx Last Taken Unknown] tamsulosin 0.4 mg capsule 0.4 mg PO DAILY 10/14/22 [History Last Taken Unknown] Clopidoxyzine insomnia 08/25/23 [History Last Taken Unknown] pravastatin 40 mg tablet 40 mg PO QHS 08/25/23 [History Last Taken Unknown] Allergy/AdvReac Type Severity Reaction Status Date / Time atorvastatin [From Lipitor] Allergy Unknown Verified 08/25/23 19:34 Iodinated Contrast Media Allergy Anaphylaxis Verified 08/25/23 19:34 [CONTRASTS] pravastatin AdvReac myalgia Verified 08/25/23 19:34 simvastatin AdvReac myalgia Verified 08/25/23 19:34 Family History Father Myocardial infarction CAD (coronary artery disease) Heart disease Prostate CA Mother Kidney disease CVA (cerebral vascular accident) Cystic fibrosis Sister Cystic fibrosis Sister Cystic fibrosis Surgical History H/O Achilles tendon repair H/O umbilical hernia repair History of coronary artery stent placement (05/19/05) History of implantable cardiac defibrillator (ICD) (09/19/10) History of left heart catheterization (05/06/17) History of open reduction and internal fixation (ORIF) procedure Social History Smoking Status: Never smoker alcohol intake: current alcohol intake frequency: a few times a week Alcohol type: beer and hard liquor substance use type: does not use Vital Signs Vital Signs Vital Signs: 08/25/23 19:32 08/25/23 21:04 08/25/23 22:19 Temperature 97.1 F L Temperature Source Temporal Pulse Rate 71 69 76 Pulse Rate [Lying] Pulse Rate [Sitting (for 1 minute prior to obtaining)] Pulse Rate [Standing (for 1 minute prior to obtaining)] Respiratory Rate 16 15 16 Respiratory Effort Respiratory Depth Respiratory Pattern Blood Pressure 146/83 H 135/79 H 157/96 H Blood Pressure [Lying] Blood Pressure [Sitting (for 1 minute prior to obtaining)] Blood Pressure [Standing (for 1 minute prior to obtaining)] Blood Pressure Mean 104 97 116 Blood Pressure Mean [Lying] Blood Pressure Mean [Sitting (for 1 minute prior to obtaining)] Blood Pressure Mean [Standing (for 1 minute prior to obtaining)] Blood Pressure Source Blood Pressure Position Blood Pressure Location Pulse Ox 97 95 98 Oxygen Delivery Method Room Air Room Air Room Air 08/25/23 22:32 08/25/23 23:00 08/25/23 23:54 Temperature Temperature Source Pulse Rate 75 79 Pulse Rate [Lying] 63 Pulse Rate [Sitting (for 1 minute prior to obtaining)] 65 Pulse Rate [Standing (for 1 minute prior to obtaining)] 83 Respiratory Rate 21 H 15 Respiratory Effort Respiratory Depth Respiratory Pattern Blood Pressure 149/108 H 154/85 H Blood Pressure [Lying] 156/92 H Blood Pressure [Sitting (for 1 minute prior to obtaining)] 160/100 H Blood Pressure [Standing (for 1 minute prior to obtaining)] 172/107 H Blood Pressure Mean 121 108 Blood Pressure Mean [Lying] 113 Blood Pressure Mean [Sitting (for 1 minute prior to obtaining)] 120 Blood Pressure Mean [Standing (for 1 minute prior to obtaining)] 128 Blood Pressure Source Blood Pressure Position Blood Pressure Location Pulse Ox 97 94 Oxygen Delivery Method Room Air 08/26/23 00:35 08/26/23 02:00 08/26/23 02:57 Temperature 97.3 F L 97.7 F L Temperature Source Temporal Temporal Pulse Rate 82 62 Pulse Rate [Lying] Pulse Rate [Sitting (for 1 minute prior to obtaining)] Pulse Rate [Standing (for 1 minute prior to obtaining)] Respiratory Rate 18 20 H Respiratory Effort Respiratory Depth Respiratory Pattern Blood Pressure 152/82 H 135/78 H Blood Pressure [Lying] Blood Pressure [Sitting (for 1 minute prior to obtaining)] Blood Pressure [Standing (for 1 minute prior to obtaining)] Blood Pressure Mean 105 97 Blood Pressure Mean [Lying] Blood Pressure Mean [Sitting (for 1 minute prior to obtaining)] Blood Pressure Mean [Standing (for 1 minute prior to obtaining)] Blood Pressure Source Monitor Monitor Blood Pressure Position Supine Supine Blood Pressure Location Left Arm Left Arm Pulse Ox 95 97 95 Oxygen Delivery Method Room Air Room Air Room Air 08/26/23 03:00 08/26/23 06:00 08/26/23 07:43 Temperature 98.0 F Temperature Source Temporal Pulse Rate 65 Pulse Rate [Lying] Pulse Rate [Sitting (for 1 minute prior to obtaining)] Pulse Rate [Standing (for 1 minute prior to obtaining)] Respiratory Rate 20 H Respiratory Effort Normal Non-Labored Respiratory Depth Shallow Respiratory Pattern Normal Blood Pressure 132/94 H Blood Pressure [Lying] Blood Pressure [Sitting (for 1 minute prior to obtaining)] Blood Pressure [Standing (for 1 minute prior to obtaining)] Blood Pressure Mean 106 Blood Pressure Mean [Lying] Blood Pressure Mean [Sitting (for 1 minute prior to obtaining)] Blood Pressure Mean [Standing (for 1 minute prior to obtaining)] Blood Pressure Source Monitor Blood Pressure Position Supine Blood Pressure Location Left Arm Pulse Ox 94 94 Oxygen Delivery Method Room Air Room Air Room Air 08/26/23 08:45 08/26/23 10:00 08/26/23 10:00 Temperature 97.8 F 98.1 F Temperature Source Oral Oral Pulse Rate 65 80 Pulse Rate [Lying] Pulse Rate [Sitting (for 1 minute prior to obtaining)] Pulse Rate [Standing (for 1 minute prior to obtaining)] Respiratory Rate 18 16 Respiratory Effort Normal Non-Labored Respiratory Depth Normal Respiratory Pattern Normal Blood Pressure 143/81 H 137/70 H Blood Pressure [Lying] Blood Pressure [Sitting (for 1 minute prior to obtaining)] Blood Pressure [Standing (for 1 minute prior to obtaining)] Blood Pressure Mean 101 92 Blood Pressure Mean [Lying] Blood Pressure Mean [Sitting (for 1 minute prior to obtaining)] Blood Pressure Mean [Standing (for 1 minute prior to obtaining)] Blood Pressure Source Monitor Monitor Blood Pressure Position Semi-Fowlers Semi-Fowlers Blood Pressure Location Left Arm Left Arm Pulse Ox 92 98 Oxygen Delivery Method Room Air Room Air Room Air 08/26/23 10:59 Temperature Temperature Source Pulse Rate Pulse Rate [Lying] Pulse Rate [Sitting (for 1 minute prior to obtaining)] Pulse Rate [Standing (for 1 minute prior to obtaining)] Respiratory Rate Respiratory Effort Normal Non-Labored Respiratory Depth Normal Respiratory Pattern Blood Pressure Blood Pressure [Lying] Blood Pressure [Sitting (for 1 minute prior to obtaining)] Blood Pressure [Standing (for 1 minute prior to obtaining)] Blood Pressure Mean Blood Pressure Mean [Lying] Blood Pressure Mean [Sitting (for 1 minute prior to obtaining)] Blood Pressure Mean [Standing (for 1 minute prior to obtaining)] Blood Pressure Source Blood Pressure Position Blood Pressure Location Pulse Ox Oxygen Delivery Method Room Air Weight Weight: 110.7 kg Body Mass Index (BMI) 36.0 EEG Results Procedure Details EEG Procedure Details: CROW TALBERT is a 73 year old M with a past medical history of , who presents for evaluation of Electroencephalogram on DATE at TIME NIHSS NIHSS Nursing Documentation NIHSS Nursing Documentation: NIH Stroke Scale Start: 08/25/23 19:58 Freq: Status: Discharge Protocol: Activity Type Activity Date Activity User E-sign Co-sign Detail Recorded Client Recorded Date Recorded By Document 08/25/23 19:58 ET Desktop 08/25/23 19:58 ET 08/25/23 19:58 NIH Stroke Scale [NIHSS] A score of 0 is normal or asymptomatic . Total possible score is 42. Inpatient: RN or Physician to activate a stroke alert for onset of new stroke symptoms or with NIHSS increase >/= 3 points. Following change in neurological status, NIHSS will be performed per physician order or more frequently PRN. -1a. Level of Consciousness Alert; keenly responsive -1b. LOC Questions Answers BOTH questions correctly. -1c. LOC Commands Performs both tasks correctly . -2. Best Gaze Normal -3. Visual No visual loss -4. Facial Palsy Normal symmetrical movements -5a. Left Arm No drift; arm holds 90 (or 45 ) degrees for full 10 seconds -5b. Right Arm No drift; arm holds 90 (or 45 ) degrees for full 10 seconds -6a. Left Leg No drift; leg holds 30-degree position for full 5 seconds -6b. Right Leg No drift; leg holds 30-degree position for full 5 seconds -7. Limb Ataxia Absent -8. Sensory Normal; no sensory loss -9. Best Language No aphasia; normal -10. Dysarthria Normal -11. Extinction and Inattention No abnormality -Total 0 Query Text:A score of 0 is normal or asymptomatic. Total possible score is 42 . ED: Notify Physician for NIHSS increase by > / = 3 points. Inpatient: RN or Physician to activate a stroke alert for NIHSS increase of > / = 3 points. NIHSS: Ischemic Stroke/TIA Start: 08/26/23 01:41 Text: For ICU Patients: NIH sroke scale at Status: Complete presentation and every 2 hours or with change in RN caregiver Freq: [id number] Protocol: Activity Type Activity Date Activity User E-sign Co-sign Detail Recorded Client Recorded Date Recorded By Document 08/26/23 02:00 ADR [id number] 08/26/23 02:46 ADR 08/26/23 02:00 -1a. Level of Consciousness Alert; keenly responsive -1b. LOC Questions Answers BOTH questions correctly. -1c. LOC Commands Performs both tasks correctly . -2. Best Gaze Normal -3. Visual No visual loss -4. Facial Palsy Normal symmetrical movements -5a. Left Arm No drift; arm holds 90 (or 45 ) degrees for full 10 seconds -5b. Right Arm No drift; arm holds 90 (or 45 ) degrees for full 10 seconds -6a. Left Leg No drift; leg holds 30-degree position for full 5 seconds -6b. Right Leg No drift; leg holds 30-degree position for full 5 seconds -7. Limb Ataxia Absent -8. Sensory Normal; no sensory loss -9. Best Language No aphasia; normal -10. Dysarthria Normal -11. Extinction and Inattention No abnormality -Total 0 Query Text:A score of 0 is normal or asymptomatic. Total possible score is 42 . ED: Notify Physician for NIHSS increase by > / = 3 points. Inpatient: RN or Physician to activate a stroke alert for NIHSS increase of > / = 3 points. Coma Scale [Assess] -Eye Opening Spontaneous -Motor Obeys Commands -Verbal Oriented [Total] -Coma Scale Total 15 NIHSS: Ischemic Stroke/TIA Start: 08/26/23 01:41 Text: For PCU Patients: NIH and Neuro Check every 4 Status: Active hours and PRN Freq: [id number] Protocol: Activity Type Activity Date Activity User E-sign Co-sign Detail Recorded Client Recorded Date Recorded By Document 08/26/23 10:00 Desktop 08/26/23 10:03 08/26/23 10:00 NIH Stroke Scale [NIHSS] A score of 0 is normal or asymptomatic . Total possible score is 42. Inpatient: RN or Physician to activate a stroke alert for onset of new stroke symptoms or with NIHSS increase >/= 3 points. Following change in neurological status, NIHSS will be performed per physician order or more frequently PRN. -1a. Level of Consciousness Alert; keenly responsive -1b. LOC Questions Answers BOTH questions correctly. -1c. LOC Commands Performs both tasks correctly . -2. Best Gaze Normal -3. Visual No visual loss -4. Facial Palsy Normal symmetrical movements -5a. Left Arm No drift; arm holds 90 (or 45 ) degrees for full 10 seconds -5b. Right Arm No drift; arm holds 90 (or 45 ) degrees for full 10 seconds -6a. Left Leg No drift; leg holds 30-degree position for full 5 seconds -6b. Right Leg No drift; leg holds 30-degree position for full 5 seconds -7. Limb Ataxia Absent -8. Sensory Normal; no sensory loss -9. Best Language No aphasia; normal -10. Dysarthria Normal -11. Extinction and Inattention No abnormality -Total 0 Query Text:A score of 0 is normal or asymptomatic. Total possible score is 42 . ED: Notify Physician for NIHSS increase by > / = 3 points. Inpatient: RN or Physician to activate a stroke alert for NIHSS increase of > / = 3 points. Coma Scale [Assess] -Eye Opening Spontaneous -Motor Obeys Commands -Verbal Oriented [Total] -Coma Scale Total 15 NIHSS 1a. Level of Consciousness: Alert; keenly responsive 1b. LOC Questions: Answers BOTH questions correctly. 1c. LOC Commands: Performs both tasks correctly. 2. Best Gaze: Normal 3. Visual: No visual loss 4. Facial Palsy: Normal symmetrical movements 5a. Left Arm: No drift; arm holds 90 (or 45) degrees for full 10 seconds 5b. Right Arm: No drift; arm holds 90 (or 45) degrees for full 10 seconds 6a. Left Leg: No drift; leg holds 30-degree position for full 5 seconds 6b. Right Leg: No drift; leg holds 30-degree position for full 5 seconds 7. Limb Ataxia: Absent 8. Sensory: Normal; no sensory loss 9. Best Language: No aphasia; normal 10. Dysarthria: Normal 11. Extinction and Inattention: No abnormality Total: 0 Physical Exam Neuro Neuro Narrative: Neurological examination: General:?The patient appears nutritionally appropriate, well-groomed, and appears comfortable in no acute distress.?Mental Status:??The patient?s mental status was normal including orientation.? Language was intact.??Cranial nerves:? Visual sims full, and extra-ocular motion was intact. Face motion symmetric. Tongue was midline with normal movement.? There was no dysarthria.?Motor: ?Normal strength and tone in all four extremities. No pronator drift.?Sensation: ?Intact light touch bilaterally, no extinction.??Coordination:? Bilateral finger to nose was normal.? There was no dysmetria.?Gait:? deferred Lab / Micro Data 08/25/23 19:45 08/25/23 19:45 Labs: Laboratory Results - last 24 hr 08/25/23 19:45: WBC 6.6, RBC 4.75, Hgb 13.8, Hct 44.8, MCV 94.3 H, MCH 29.1, MCHC 30.8 L, RDW Std Deviation 47.1 H, RDW Coeff of Davon 13.5, Plt Count 189, MPV 10.9, Immature Gran % (Auto) 0.300, Neut % (Auto) 73.7 H, Lymph % (Auto) 15.0 L , Gilchrist % (Auto) 8.5, Eos % (Auto) 2.0, Baso % (Auto) 0.5, Absolute Neuts (auto) 4.9, Absolute Lymphs (auto) 0.99, Nucleated RBC % 0, PT 14.3, INR 1.1, APTT 35.2, Sodium 140, Potassium 4.0, Chloride 107, Carbon Dioxide 30.0, Anion Gap 3 L, BUN 17, Creatinine 1.22, Estim Creat Clear Calc 67.53, Est GFR (MDRD) Af Amer 75, Est GFR (MDRD) Non-Af 62, BUN/Creatinine Ratio 13.9, Glucose 84, Calcium 9.4, Total Bilirubin 0.50, AST 20, ALT 32, Alkaline Phosphatase 64, Troponin I High Sens 11, Total Protein 6.9, Albumin 3.2, Globulin 3.7, Albumin/Globulin Ratio 0.9 08/25/23 21:55: Urine Color Yellow, Urine Clarity Sl. Cloudy, Urine pH 6.0, Ur Specific [place] 1.020, Urine Protein 30 H, Urine Glucose (UA) Normal, Urine Ketones 5 H, Urine Occult Blood Negative, Urine Nitrite Negative, Urine Bilirubin Negative, Urine Urobilinogen 1 H, Ur Leukocyte Esterase Negative, Urine RBC 0-5 SEEN, Urine WBC 0 SEEN, Ur Squamous Epith Cells 0 SEEN, Urine Bacteria 0 SEEN, Urine Mucus 0 SEEN 08/25/23 22:10: Troponin I High Sens 11 08/26/23 07:55: Hemoglobin A1c 4.9, Magnesium 2.1, Triglycerides 64, Cholesterol 154, LDL Cholesterol 98, VLDL Cholesterol 13, HDL Cholesterol 43, TSH 1.33 Micro: Microbiology 08/25/23 19:45 Mucosa - Nose SARS-CoV-2, Influenza & RSV (PCR) - Final Imaging Radiology Impression Brain CT 08/25/23 19:51 IMPRESSION: Involutional changes, otherwise normal CT brain for age. Electronically Signed: Sherie Nieto MD at 20:57 EST Reading Location ID and State: [facility] / ID , Service support , Chest X-Ray 08/25/23 20:00 IMPRESSION: Cannot exclude mild vascular congestion versus vascular crowding from decreased inspiration. Otherwise no acute cardiopulmonary disease. Electronically Signed: Sherie Nieto MD at 20:53 EST , Echocardiogram 08/26/23 02:01 Interpretation Summary Mild concentric left ventricular hypertrophy. Severe apical hypokinesis. Severe inferior hypokinesis. Estimated LVEF 30%. Diastolic function is indeterminate. Bubble contrast study is negative for PFO/ASD. Mild (1+) mitral valve insufficiency. Mildly dilated aortic root. Ordering Physician: Leo Bajwa Performed By: Lin Cassidy RDCS Brain CT 08/26/23 13:00 IMPRESSION: Chronic involutional changes of the brain. Electronically Signed: Spenser Cruz MD at 13:11 EST , Active Medications Active Medications Active Medications: Current Medications Generic Name Dose Route Start Last Admin Trade Name Zebq PRN Reason Stop Dose Admin Acetaminophen 650 mg 08/26/23 01:48 Acetaminophen 325 Mg Tablet PO Q6H PRN PRN Pain 1-10 Or Fever>100.7 Albuterol Sulfate 2.5 mg 08/26/23 02:02 Albuterol 2.5 Mg/3 Ml Vial.Neb. INHALATION Q4H PRN PRN shortness of breath/wheezing Aspirin 81 mg 08/26/23 08:00 08/26/23 09:02 Aspirin E.C. 81 Mg Tablet PO 81 mg DAILYCM MARLINE Administration Calcium/Vitamin D 1 tablet 08/26/23 08:00 08/26/23 09:02 Calcium Carb/Vitamin D 1 Tablet Tablet PO 1 tablet BIDCM MARLINE Administration Carvedilol 25 mg 08/26/23 08:00 08/26/23 09:02 Carvedilol 25 Mg Tablet PO 25 mg BIDCM MARLINE Administration Protocol Clopidogrel Bisulfate 75 mg 08/26/23 10:00 08/26/23 09:05 Clopidogrel Bisulfate 75 Mg Tablet PO 75 mg DAILY MARLINE Administration Enoxaparin Sodium 40 mg 08/26/23 10:00 08/26/23 09:06 Enoxaparin 40 Mg/0.4 Ml Syringe SC 40 mg DAILY MARLINE Administration Fluoxetine HCl 20 mg 08/26/23 10:00 08/26/23 09:06 Fluoxetine 20 Mg Capsule PO 20 mg DAILY MARLINE Administration Hydralazine HCl 5 mg 08/26/23 01:41 Hydralazine 20 Mg/Ml Vial IV Q30M PRN to maintain BP goals Sodium Chloride 250 mls @ 15 mls/hr 08/26/23 00:32 IV .[id number] PRN Additional IVPB Infusion Sodium Chloride 250 mls @ 15 mls/hr 08/26/23 00:32 IV .[id number] PRN Saline Flush Sodium Chloride 1,000 mls @ 50 mls/hr 08/26/23 01:45 08/26/23 12:49 IV 08/26/23 21:44 0 mls/hr .Q20H MARLINE Infusion Labetalol HCl 10 - 20 mg 08/26/23 01:41 Labetalol (Prefilled) 20 Mg/4 Ml IV Q10M PRN PRN to Maintain BP Goals Multivitamins 1 tablet 08/26/23 08:00 08/26/23 09:02 Multivitamins,Therapeutic Tablet PO 1 tablet DAILYCM MARLINE Administration Nitroglycerin 0.4 mg 08/26/23 01:48 Nitroglycerin (Inpatient Use) 0.4 Mg Tab.Subl SL Q5M PRN CARDIAC/CHEST PAIN Ondansetron HCl 4 mg 08/26/23 01:48 Ondansetron 4 Mg/2 Ml Vial IV Q8H PRN PRN NAUSEA/VOMITING Pravastatin Sodium 40 mg 08/26/23 22:00 Pravastatin 40 Mg Tablet PO QHS MARLINE Senna/Docusate Sodium 2 tablet 08/26/23 01:48 Senna/Docusate Sodium 1 Tablet PO BID PRN PRN Constipation Sodium Chloride 10 - 40 ml 08/26/23 00:32 08/26/23 12:48 0.9% Saline Lock 10 Ml Syringe IV 10 ml UD PRN Administration SALINE FLUSH Tamsulosin HCl 0.4 mg 08/26/23 10:00 08/26/23 09:05 Tamsulosin Hcl 0.4 Mg Capsule PO 0.4 mg DAILY MARLINE Administration
--- NOTE | 2023-08-26 16:08 | PCM.DC.SUM ---
Providers Date of Admission: 08/25/23 Date of Discharge: 08/26/23 Primary Care Physician: Dr. Sanju Guillen MD Consultations 08/26/23 06:50 Consult: Tele-Neurology Routine Consulting Provider: [facility] Reason for Consult: TIA EMERGENT Consult: No MD Notified: Yes Date Notified: 08/26/23 Time Notified: 06:52 Method of Notification: Answering Service Nursing Unit Staff Notify [facility] of Tele-Neurology Consult: Yes Reason For Visit: TIA Diagnosis Discharge Diagnosis (1) TIA (transient ischemic attack): Status: Acute Code(s): G45.9 - Transient cerebral ischemic attack, unspecified Plan: DISCHARGE DIAGNOSES: #1. Dizziness, lightheadedness, imbalance with expressive aphasia, resolved concerning for TIA (AICD NOT MRI compatible of note) #2. Combined HFp/HFrEF, Ischemic cardiomyopathy #3. Sarcoidosis #4. Hypertension #5. Hyperlipidemia #6. Anxiety and depression #7. History of prostate cancer #8. BPH #9. Obesity Medications at Discharge Home Medications aspirin 81 mg tablet,delayed release 81 mg PO DAILY 12/23/16 calcium carbonate 500 mg-vitamin D3 5 mcg (200 unit) tablet 1 ea PO BID 12/23/16 fluoxetine 20 mg capsule 20 mg PO DAILY 12/23/16 multivitamin 1 ea PO DAILY 12/23/16 ramipril 10 mg capsule 10 mg PO DAILY 12/23/16 nitroglycerin 0.4 mg sublingual tablet 0.4 mg sublingual Q5M PRN Chest Pain #25 tabs 08/30/18 albuterol sulfate 90 mcg/actuation aerosol inhaler 2 puff inhalation Q4H PRN shortness of breath or wheezing #8.5 grams 06/28/21 carvedilol 25 mg tablet 25 mg PO BID #180 tabs 07/11/22 clopidogrel 75 mg tablet 75 mg PO DAILY #90 tabs 09/03/22 tamsulosin 0.4 mg capsule 0.4 mg PO DAILY 10/14/22 Clopidoxyzine insomnia 08/25/23 pravastatin 40 mg tablet 40 mg PO QHS 08/25/23 Hospital Course Operations None Procedures 2-D Echocardiogram and EKG Summary of Care Provided Minutes Spent on Discharge: 35 Hospital Course: The patient is a 73 y/o M w/ PMHx: Obesity, CAD s/p PCI, Sarcoidosis, HTN, HLD, Combined HFp/HFrEF, Ischemic cardiomyopathy, Hx Prostate CA who presents to the [facility] ED on 08/25/2023 with onset of dizziness, lightheadedness, imbalance with expressive aphasia. CT of the head with chronic involutional changes otherwise no acute findings, chest x-ray with possible mild vascular congestion versus vascular crowding from decrease in [place] effort with otherwise no acute cardiopulmonary disease. Admitted to PCU, given ASC device unable to obtain MRI of the brain therefore times repeat CT head obtained with again no acute intracranial findings with chronic involutional changes of the brain, carotid ultrasound performed with preliminary noted less than 50% stenosis bilaterally, ECHO with mild concentric LVH, severe apical hypokinesis with severe inferior hypokinesis with LVEF 30%, diastolic function indeterminate, bubble contrast to be negative for PFO/ASD, mild MVI, mildly dilated aortic root w/ 10/04/20 ECHO similar in function of note, PT/OT/Speech/Nutrition evaluation per protocol. Allowed permissive HTN with allowance of beta-nasima per admitting physician, maintained on asa/plavix, statin w/ AM FLP, fall precautions. Mag, TSH, FLP, HgbA1c obtained. Troponin initial 11 with repeat delta 11. EKG with no acute findings. Given high risk patient neurology consulted and recommended that patient continue aspirin and Plavix with recommendation for continued medication therapy. Given clinical improvement, patient discharged to home in stable improved condition with primary care physician follow-up recommended and recommendation for consideration follow-up with Neurology as well. Weight / BMI Weight Weight: 244 lb 0.827 oz Body Mass Index (BMI) 36.0 ABG / Lab / Microbiology Data 08/25/23 19:45 08/25/23 19:45 Laboratory: Laboratory Results - last 24 hr 08/25/23 19:45: WBC 6.6, RBC 4.75, Hgb 13.8, Hct 44.8, MCV 94.3 H, MCH 29.1, MCHC 30.8 L, RDW Std Deviation 47.1 H, RDW Coeff of Davon 13.5, Plt Count 189, MPV 10.9, Immature Gran % (Auto) 0.300, Neut % (Auto) 73.7 H, Lymph % (Auto) 15.0 L, [place] % (Auto) 8.5, Eos % (Auto) 2.0, Baso % (Auto) 0.5, Absolute Neuts (auto) 4.9, Absolute Lymphs (auto) 0.99, Nucleated RBC % 0, PT 14.3, INR 1.1, APTT 35.2, Sodium 140, Potassium 4.0, Chloride 107, Carbon Dioxide 30.0, Anion Gap 3 L, BUN 17, Creatinine 1.22, Estim Creat Clear Calc 67.53, Est GFR (MDRD) Af Amer 75, Est GFR (MDRD) Non-Af 62, BUN/Creatinine Ratio 13.9, Glucose 84, Calcium 9.4, Total Bilirubin 0.50, AST 20, ALT 32, Alkaline Phosphatase 64, Troponin I High Sens 11, Total Protein 6.9, Albumin 3.2, Globulin 3.7, Albumin/Globulin Ratio 0.9 08/25/23 21:55: Urine Color Yellow, Urine Clarity Sl. Cloudy, Urine pH 6.0, Ur Specific [place] 1.020, Urine Protein 30 H, Urine Glucose (UA) Normal, Urine Ketones 5 H, Urine Occult Blood Negative, Urine Nitrite Negative, Urine Bilirubin Negative, Urine Urobilinogen 1 H, Ur Leukocyte Esterase Negative, Urine RBC 0-5 SEEN, Urine WBC 0 SEEN, Ur Squamous Epith Cells 0 SEEN, Urine Bacteria 0 SEEN, Urine Mucus 0 SEEN 08/25/23 22:10: Troponin I High Sens 11 08/26/23 07:55: Hemoglobin A1c 4.9, Magnesium 2.1, Triglycerides 64, Cholesterol 154, LDL Cholesterol 98, VLDL Cholesterol 13, HDL Cholesterol 43, TSH 1.33 Microbiology: Microbiology 08/25/23 19:45 Mucosa - Nose SARS-CoV-2, Influenza & RSV (PCR) - Final Radiography Diagnostic Testing: Radiology Impression Brain CT 08/25/23 19:51 IMPRESSION: Involutional changes, otherwise normal CT brain for age. Electronically Signed: Sherie Nieto MD at 20:57 EST , Chest X-Ray 08/25/23 20:00 IMPRESSION: Cannot exclude mild vascular congestion versus vascular crowding from decreased inspiration. Otherwise no acute cardiopulmonary disease. Electronically Signed: Sherie Nieto MD at 20:53 EST , Echocardiogram 08/26/23 02:01 Interpretation Summary Mild concentric left ventricular hypertrophy. Severe apical hypokinesis. Severe inferior hypokinesis. Estimated LVEF 30%. Diastolic function is indeterminate. Bubble contrast study is negative for PFO/ASD. Mild (1+) mitral valve insufficiency. Mildly dilated aortic root. Ordering Physician: Leo aBjwa Performed By: Lin Cassidy RDCS Brain CT 08/26/23 13:00 IMPRESSION: Chronic involutional changes of the brain. Electronically Signed: Spenser Cruz MD at 13:11 EST , D/C Instructions Discharge Diet: Low fat / Low cholesterol May resume sexual activity in: No Restrictions Weight Bearing Status: Weight bearing as tolerated Call your doctor if you observe: Numbness or Tingling, Shortness of breath, Fainting spells, Chest pain, Increased palpitations (irregular heartbeat) and Uncontrolled pain Meaningful Use Info Meaningful Use Diagnoses (Choose all that apply): None applicable Discharge Plan Admission Admit Date/Time: 08/25/23 22:57 Primary Reason for Your Visit: Transient Ischemic Attack Attending Provider: Martha Simons Primary Care Provider: Sanju Guillen Consulting Providers: Leo Bajwa; Rom Herring; Marino Peres; Jeanne Dubose; Jemima Barrett; Alma Washington; Everardo Dale; Daria Henry; David Valdivia; Calin Arellano; Kayley Reid; Jimmy Ni; Gaby Ulloa; Shantal Grande; Briseida Flor; Fei Walsh; Mayito Kay; Gallo Castro; Alexia Sanchez; Jose Fermin Instructions Patient Instructions: TIA Dc Additional Instructions / Restrictions: ADDITIONAL DISCHARGE REVIEW: #1. Dizziness, lightheadedness, imbalance with expressive aphasia, resolved concerning for TIA: CT of the head with chronic involutional changes with timed repeat CT head obtained with again no acute intracranial findings with chronic involutional changes of the brain. Carotid ultrasound performed with preliminary noted less than 50% stenosis bilaterally. ECHO with mild concentric LVH, severe apical hypokinesis with severe inferior hypokinesis with LVEF 30%, diastolic function indeterminate, bubble contrast to be negative for PFO/ASD, mild MVI, mildly dilated aortic root w/ 10/04/20 ECHO similar in function of note. Hemoglobin A1c 4.9%, magnesium 2.1, TSH 1.33, cholesterol with triglycerides 64, total cholesterol 154, LDL 98, VLDL 13, HDL 43. Discharge Orders/Prescriptions Prescriptions: Continued multivitamin 1 EACH tablet 1 ea PO DAILY aspirin 81 MG tablet,delayed release (DR/EC) 81 mg PO DAILY Patient Comments: STOPPED ON 12/18/16 FOR PROCEDURE fluoxetine 20 MG capsule 20 mg PO DAILY ramipril 10 MG capsule 10 mg PO DAILY calcium carbonate-vitamin D3 1 EACH tablet 1 ea PO BID tamsulosin 0.4 mg capsule 0.4 mg PO DAILY Patient Comments: Clopidoxyzine pravastatin 40 mg tablet 40 mg PO QHS nitroglycerin 0.4 mg tablet, sublingual 0.4 mg SUBLINGUAL Q5M PRN (Reason: Chest Pain) Qty: 25 1RF albuterol sulfate 90 mcg/actuation HFA aerosol inhaler 2 puff INHALATION Q4H PRN (Reason: shortness of breath or wheezing) Qty: 8.5 3RF Rx Instructions: administer with spacer carvedilol 25 mg tablet 25 mg PO BID Qty: 180 3RF clopidogrel 75 mg tablet 75 mg PO DAILY Qty: 90 3RF Referrals / Follow Up: Sanju Guillen MD [Primary Care Provider] - (Please follow-up within 3-5 days to review admission.) Adilson Hernandez MD [Non-Staff -Ordering Privileges] - (Please call to establish. May take first open visit but ideally within 4-8 weeks.) Disposition Disposition (needs filled in before D/C Order can be placed): Home, Self Care Charges/Coding Visit Charges Inpatient E&M: 84075 Disch Hosp >30min
--- NOTE | 2023-08-26 16:35 | CASEMGMT ---
MARIE CM into pt room as dc order placed. Pt denies any homegoing needs. Pt has returned to baseline. No therapy recommended.
== END 2023-08-26 16:05 | disposition home or self-care (01) ==
LOC: ED 23:08 → PCU 23:25
PROVIDERS: Admitting Provider Internal Medicine; Emergency Provider Emergency Medicine; PCP Family Medicine; Visit Provider Family Medicine
DX: R42 Dizziness and giddiness (principal); I11.0 Hypertensive heart disease with heart failure; I50.42 Chronic combined systolic (congestive) and diastolic (congestive) heart failure; Z86.16 Personal history of COVID-19; Z79.82 Long term (current) use of aspirin; H93.19 Tinnitus, unspecified ear; E66.9 Obesity, unspecified; I25.10 Atherosclerotic heart disease of native coronary artery without angina pectoris; E78.5 Hyperlipidemia, unspecified; Z68.36 Body mass index [BMI] 36.0-36.9, adult; I25.5 Ischemic cardiomyopathy; R47.01 Aphasia; Z79.899 Other long term (current) drug therapy; Z79.02 Long term (current) use of antithrombotics/antiplatelets; R06.02 Shortness of breath; Z95.5 Presence of coronary angioplasty implant and graft; Z95.810 Presence of automatic (implantable) cardiac defibrillator; D86.9 Sarcoidosis, unspecified; F41.9 Anxiety disorder, unspecified; F32.A Depression, unspecified; N40.0 Benign prostatic hyperplasia without lower urinary tract symptoms; I34.0 Nonrheumatic mitral (valve) insufficiency; I65.23 Occlusion and stenosis of bilateral carotid arteries; Z23 Encounter for immunization
CPT/HCPCS: 36415; 70450; 71046; 80053; 80061; 81001; 83036; 83735; 84443; 84484; 85025; 85610; 85730; 87631; 93005; 93306; 93880; 94762; 96360; 96361; 96372; 97161; 97802; 99221; 99285; G0008; J7030; Q9957; 90662; A4216; C8929; G0378

== ENCOUNTER 2023-11-03 08:36 | Day surgery (SDC) | payer MEDICARE, OTHER, SELFPAY ==
[2023-10-20 14:45] LABS: Bacteria 0 SEEN /hpf (None Seen); Mucous, Urine 0 SEEN /hpf (<or=2+); Red Blood Cells-Urine 0 SEEN /hpf (0-5); Squamous Epithelial Cells - UA 0 SEEN /hpf (0-5); White Blood Cells 0 SEEN /hpf (0-5)
[2023-10-20 15:07] LABS: Hematocrit 45.8 % (40-54); Hemoglobin 14.3 g/dL (13.0-16.5); Mean Corp Hgb Conc 31.2 g/dL (32-36); Mean Corpuscular Volume 92.9 fL (80-94); Mean Platelet Vol. 10.9 fl (6.2-12.0); Platelet Count 180 K/mm3 (150-450); RBC Distribution Width CV 13.6 % (11.6-14.6); RBC Distribution Width SD 46.5 fl (35.1-43.9); Red Blood Count 4.93 M/mm3 (4.6-6.2); White Blood Count 5.6 K/mm3 (4.4-11.0)
[2023-10-20 15:21] LABS: International Normalized Ratio 1.1; Prothrombin Time (Protime)PT. 13.8 SECONDS (11.7-14.9)
[2023-10-20 15:33] LABS: BNP,B-Type NATRIURETIC PEPTIDE 143.5 pg/mL (0-100)
[2023-10-20 15:50] LABS: Anion Gap 3 (5-15); BUN 17 mg/dL (7-18); BUN/Creat Ratio 14.4 RATIO (10-20); Calcium,Total 9.5 mg/dL (8.5-10.1); Chloride 106 mmol/L (98-107); Creatinine, Serum 1.18 mg/dL (0.70-1.30); EST Glomerular Filtration Rate 64 mL/min (>60); Est Glom Filt Rate - Afr Amer 78 mL/min (>60); Glucose 89 mg/dL (74-106); Potassium 3.9 mmol/L (3.5-5.1); Sodium Level 139 mmol/L (136-145)
[2023-10-20 16:00] LABS: Color, Urine Yellow (Yellow); Glucose, Dipstick Normal (Normal); Ketone-Dipstick Negative (Negative); Leukocyte Esterase-Dipstick Negative /ul (Negative); Nitrite-Dipstick Negative (Negative); Occult Blood-Urine Negative /ul (Negative); Protein-Dipstick Negative (Negative); Specific Gravity, Urine 1.015 (1.002-1.030); Urine Bilirubin Dipstick Negative (Negative); Urine Clarity Clear (Clear); Urine Urobilinogen Normal (Normal); Urine pH 6.5 (5.0 - 8.0)
--- NOTE | 2023-11-03 10:08 | EX.DEFIBPROC ---
Defibrillator Procedure Note Defibrillator Procedure Note Malcolm Ho is a 73 year old male who has a past medical history of ischemic cardiomyopathy s/p single chamber ICD and sarcoidosis, who presented to the [facility] EP lab for further evaluation regarding an ICD generator changeout due to battery depletion. The patient was brought to the electrophysiology laboratory in a fasting state. Sedation provided by myself and nursing staff. The [facility] shoulder area was prepped and draped in the usual manner and the skin and subcutaneous tissues below the left clavicle were infiltrated with 1% lidocaine for local anesthesia. The skin was sharply incised. Electrocautery and blunt dissection were carried out to the level of the ICD generator.. The lead was tested with the analyzer and was found to have stable parameters. The device was noted to function appropriately. The pocket was noted to have an absence of active bleeding. The pulse generator was placed in the pocket. The pocket was then irrigated. The incision was closed with two layers of 2-0 Vicryl and a subcuticular closure of 4-0 Vicryl. The incision was dressed. Conclusions Successful ICD generator changeeout with adequate pacing threshold, sensing and lead impedance. Recommendations 1. Routine follow-up in the device clinic. 2. Remove outer dressing after 48 hours. Leave steri-strips intact for 7-10 days, then remove if it does not fall off by itself. 3. Device follow up as scheduled. 4. Hold anticoagulation for 24 hours (No heparin IV or NOAC, ok to continue warfarin). 5. The patient can continue to follow-up with Dr. Dial.
== END 2023-11-03 11:30 | disposition home or self-care (01) ==
LOC: CLSP 08:38
PROVIDERS: Nurse Practitioner Gerontology; PCP Family Medicine; Referring Provider Internal Medicine Cardiovascular Disease; Visit Provider Internal Medicine Cardiovascular Disease
DX: Z45.018 Encounter for adjustment and management of other part of cardiac pacemaker (principal); I50.42 Chronic combined systolic (congestive) and diastolic (congestive) heart failure; I11.0 Hypertensive heart disease with heart failure; I25.5 Ischemic cardiomyopathy; I25.10 Atherosclerotic heart disease of native coronary artery without angina pectoris; Z95.5 Presence of coronary angioplasty implant and graft; R53.83 Other fatigue; R06.00 Dyspnea, unspecified; Z95.810 Presence of automatic (implantable) cardiac defibrillator; E78.5 Hyperlipidemia, unspecified; Z86.16 Personal history of COVID-19; I25.2 Old myocardial infarction; Z86.73 Personal history of transient ischemic attack (TIA), and cerebral infarction without residual deficits; Z85.46 Personal history of malignant neoplasm of prostate; Z82.49 Family history of ischemic heart disease and other diseases of the circulatory system; D86.9 Sarcoidosis, unspecified
CPT/HCPCS: 33262; 36415; 80048; 81001; 83880; 84443; 85027; 85610; 93641; 99152; 99153; J7040; J7050

== ENCOUNTER → 2023-12-21 | Outpatient (CLI) | payer MEDICARE, OTHER, SELFPAY ==
[2023-11-02 09:03] VITALS: BMI 36.0
--- NOTE | 2023-12-21 11:35 | STRESSREP ---
Stress Test Report Pharmacologic myocardial perfusion stress test. 73-year-old man with a history of coronary artery disease, cardiomyopathy, dyspnea on exertion, status post ICD. Resting EKG demonstrates sinus rhythm with a rate of 70 bpm. Resting blood pressure is 118/80 mmHg. 0.4 mg of regadenoson was infused per usual protocol followed by rapid intravenous saline flush injection. Continuous EKG monitoring was performed. The maximum heart rate was 86 bpm which was 58% of max impacted heart rate the maximum workload was 1 metabolic equivalent. At rest there were no ST or T wave changes noted to suggest ischemia and at peak infusion nonspecific ST changes were noted which did not meet the criteria for ischemia. No clinical angina is noted. The final blood pressure was 112/82 mmHg. Myocardial perfusion protocol. 14.4 mCi of technetium 99m sestamibi was injected at rest. 0.4 mg of regadenoson was infused per usual protocol. At peak infusion 44.7 mCi of technetium 99m sestamibi was injected stress images were obtained stress and rest images were reconstructed and compared in the short axis vertical long and horizontal long axis. Gated images were also obtained. Perfusion SPECT analysis: Review of the stress images demonstrate a medium to large size defect noted in the mid anterior wall extending to the apex. The resting images demonstrate a similar pattern with minimal improvement around the edges suggestive of minimal debbie-infarct ischemia. No significant ischemia however is noted. Previous infarct in the anterior wall and apex is present. Gated SPECT analysis: The gated ejection fraction is 25%. Conclusion: Pharmacologic myocardial perfusion stress test with evidence of anterior apical infarct Minimal debbie-infarct ischemia Ischemic cardiomyopathy
== END | disposition home or self-care (01) ==
LOC: CVS 07:32
PROVIDERS: PCP Family Medicine; Referring Provider Nurse Practitioner Gerontology; Visit Provider Nurse Practitioner Gerontology
DX: I25.10 Atherosclerotic heart disease of native coronary artery without angina pectoris (principal); R53.83 Other fatigue; R06.00 Dyspnea, unspecified
CPT/HCPCS: 78452; 93017; A9500; J2785

== ENCOUNTER → 2023-12-23 | Outpatient (CLI) | payer MEDICARE, OTHER, SELFPAY ==
[2023-12-23 13:22] LABS: BNP,B-Type NATRIURETIC PEPTIDE 131.1 pg/mL (0-100)
[2023-12-23 13:56] LABS: Anion Gap 5 (5-15); BUN 13 mg/dL (7-18); BUN/Creat Ratio 11.6 RATIO (10-20); Calcium,Total 9.7 mg/dL (8.5-10.1); Chloride 104 mmol/L (98-107); Creatinine, Serum 1.12 mg/dL (0.70-1.30); EST Glomerular Filtration Rate 68 mL/min (>60); Est Glom Filt Rate - Afr Amer 83 mL/min (>60); Glucose 92 mg/dL (74-106); Potassium 4.1 mmol/L (3.5-5.1); Sodium Level 136 mmol/L (136-145)
== END | disposition home or self-care (01) ==
LOC: LAB 11:48
PROVIDERS: PCP Family Medicine; Referring Provider Nurse Practitioner Gerontology; Visit Provider Nurse Practitioner Gerontology
DX: R06.00 Dyspnea, unspecified (principal)
CPT/HCPCS: 36415; 80048; 83880

== ENCOUNTER → 2024-02-17 | Outpatient (CLI) | payer MEDICARE, OTHER, SELFPAY ==
--- NOTE | 2024-02-17 15:40 | RAD_ITS ---
STUDY: X-RAY CHEST REASON FOR EXAM: Male, 73 years old. VILLAGRAN, Cardiac Catheterization TECHNIQUE: Frontal and lateral views of the chest. COMPARISON: 08/25/2023 FINDINGS: The lungs are clear and expanded. There is no demonstrated pleural abnormality. Normal size heart. Pacer lead terminates in the right ventricle. There are calcified mediastinal lymph nodes. Normal visualized pulmonary arteries. Normal visualized aortic arch and descending thoracic aorta. There are diffuse degenerative changes of the visualized thoracic spine. Normal visualized ribs, clavicles, and shoulders. There is no demonstrated abnormality of the visualized soft tissue structures of the upper abdomen. RAD/Chest PA and Lateral IMPRESSION: No definite acute or significant abnormality seen. Electronically Signed: William Mitchell MD at 17:05 EDT ,
[2024-02-17 17:00] LABS: Absolute Lymphocyte Count 0.96 X10^3/uL (0.83-4.51); Absolute Neutrophil Count 3.4 X10^3/uL (2.0-7.7); Basophil# 0.02 X10^3/uL; Basophil% 0.4 % (0-1); Hematocrit 44.7 % (40-54); Lymphocyte # 0.96 X10^3/ul (0.83-4.51); Mean Corp Hgb Conc 31.3 g/dL (32-36); Mean Corpuscular Hgb 29.5 pg (27.0-32.0); Mean Corpuscular Volume 94.1 fL (80-94); Mean Platelet Vol. 11.3 fl (6.2-12.0); Monocyte# 0.53 X10^3/uL; Monocyte% 10.5 % (0-10); NRBC Flagged by Analyzer 0 % (0-5); Neutrophil # 3.44 X10^3/uL (2.7-7.7); Neutrophil % 67.9 % (47-70); Platelet Count 202 K/mm3 (150-450); RBC Distribution Width CV 13.6 % (11.6-14.6); RBC Distribution Width SD 46.9 fl (35.1-43.9); Red Blood Count 4.75 M/mm3 (4.6-6.2); White Blood Count 5.1 K/mm3 (4.4-11.0)
[2024-02-17 17:20] LABS: BNP,B-Type NATRIURETIC PEPTIDE 210.3 pg/mL (0-100)
[2024-02-17 17:24] LABS: Anion Gap 5 (5-15); BUN 16 mg/dL (7-18); BUN/Creat Ratio 13.4 RATIO (10-20); Calcium,Total 9.6 mg/dL (8.5-10.1); Chloride 104 mmol/L (98-107); Creatinine, Serum 1.19 mg/dL (0.70-1.30); EST Glomerular Filtration Rate 64 mL/min (>60); Est Glom Filt Rate - Afr Amer 77 mL/min (>60); Glucose 82 mg/dL (74-106); Potassium 3.9 mmol/L (3.5-5.1); Sodium Level 139 mmol/L (136-145)
== END | disposition home or self-care (01) ==
LOC: RAD 15:34 → LAB 15:51
PROVIDERS: PCP Family Medicine; Referring Provider Nurse Practitioner Gerontology; Visit Provider Nurse Practitioner Gerontology
DX: R06.00 Dyspnea, unspecified (principal); R94.39 Abnormal result of other cardiovascular function study; Z95.5 Presence of coronary angioplasty implant and graft
CPT/HCPCS: 36415; 71046; 80048; 83880; 85025

== ENCOUNTER 2024-02-22 09:06 | Day surgery (SDC) | payer MEDICARE, OTHER, SELFPAY ==
[2024-02-19 09:15] VITALS: BMI 36.0
--- NOTE | 2024-02-22 13:34 | CL.D_ITS ---
Patient Name: CROW TALBERT Study Date: 02/22/2024 Performing: Felipe Dial MD Ht: 69 inches 175.26 cm : 1950 Wt: 244.01 lbs 110.68 kg Age: 73 Gender: male BSA: 2.25 PROCEDURE(S) PERFORMED DC02-([id number])LHC/COR IC10-([id number])FFR, CORONARY OR GRAFT, INITIAL VESSEL CLINICAL PROFILE AND INDICATIONS Indications: Suspected CAD Heart Failure: NYHA Class: 2, Newly Diagnosed: No, Heart Failure Type: Systolic Stress/Imaging Date: 02/06/24Stress Test with SPECT MPI: Positive Low Risk CAD Presentations: Other: SOB CONCLUSIONS Normal coronary arteries Known coronary disease status post angioplasty and stenting of the left anterior descending artery with moderate in-stent stenosis and insignificant IFR. RECOMMENDATIONS Medical therapy DESCRIPTION OF PROCEDURE The patient arrived to the procedure lab. The risks and benefits of the procedure as well as a full description of our services here and current unavailability of surgical backup were fully explained to the patient and/or their significant other prior to the catheterization. The Timeout was completed, verifying the correct patient and procedure. The patient's procedural site was prepped and draped in the usual fashion. Local anesthetic was given subcutaneously to right radial region with Lidocaine 2%. Using a modified Seldinger technique, arterial access was obtained via the right radial artery, a 6Fr sheath was inserted. Right Coronary Artery selective angiography was then performed in multiple views using a 5 Fr. 4.0 [place] catheter. Left Coronary Artery selective angiography was performed in multiple views using a 6 Fr. XB 3.0 guide. Left Coronary Artery selective angiography was performed in multiple views using a 6 Fr. XB 3.5 guide.The arterial sheath was pulled and a TR Band was applied for hemostasis CORONARY ANGIOGRAPHY DOMINANCE: Right Dominant LEFT HEART ASSESSMENT Left Ventricular Ejection Fraction: by Echo 30 % Global Hypokinesis - Moderate Depressed Left Ventricular systolic function LEFT MAIN: Angiographically normal LEFT ANTERIOR DESCENDING ARTERY: This vessel was previously stented. It was noted to be patent gave off a first large diagonal branch. There was 50 to 60% in-stent stenosis. The rest of the vessel was mildly diffusely diseased. An IFR was performed and was noted to be normal. CIRCUMFLEX ARTERY: Moderate luminal irregularities up to 50% RIGHT CORONARY ARTERY: Mild luminal irregularities less than 30% COMPLICATIONS No Complications PROCEDURE MEDICATIONS Versed 1 mg IV Fentanyl 50 mcg IV Oxygen: 2 L/min via nasal cannula Benadryl 50 mg IV @ 02/22/2024 12:14:38 Heparin given IA 02/22/2024 12:20:16 Heparin 5000 unit(s) IV 02/22/2024 13:13:46 Solu-medrol 125 mg IV 02/22/2024 12:14:26 SUMMARY OF HEMODYNAMIC DATA Time AIR REST ECG 09:38:31 AO 110/60 (79) SA 12:25:32 AO 110/77 (93) 12:30:32 13:31:29 Signed By Felipe Dial MD On 02/22/2024 13:33:23 Felipe Dial MD
--- NOTE | 2024-02-24 10:59 | CL.I_ITS ---
Patient Name: CROW TALBERT Study Date: 02/22/2024 Performing: Pedrito Bermudez MD Ht: 69 inches 175.26 cm : 1950 Wt: 244.3 lbs 110.68 kg Age: 73 Gender: male BSA: 2.25 PROCEDURE(S) PERFORMED IC10-(31313)FFR, CORONARY OR GRAFT, INITIAL VESSEL CLINICAL PROFILE AND CO-MORBIDITIES Indications: Suspected CAD Heart Failure: NYHA Class: 2, Newly Diagnosed: No, Heart Failure Type: Systolic Stress/Imaging Date: 02/06/24 Stress Test with SPECT MPI: Positive Low Risk CAD Presentations: Other: SOB CONCLUSIONS iFR of LAD is 0.92 RECOMMENDATIONS Medical therapy DESCRIPTION OF PROCEDURE The patient arrived to the procedure lab. The risks and benefits of the procedure as well as a full description of our services here and current unavailability of surgical backup were fully explained to the patient and/or their significant other prior to the catheterization. The Timeout was completed, verifying the correct patient and procedure. The patient's procedural site was prepped and draped in the usual fashion. Local anesthetic was given subcutaneously to right radial region with Lidocaine 2% Using a modified Seldinger technique,arterial access was obtained via the right radial artery, a 6Fr sheath was inserted. Right Coronary Artery selective angiography was then performed in multiple views using a 5 Fr. 4.0 [place] catheter. Left Coronary Artery selective angiography was performed in multiple views using a 6 Fr. XB 3.0 guide. Left Coronary Artery selective angiography was performed in multiple views using a 6 Fr. XB 3.5 guide.The images were reviewed and options discussed. A decision was then made to proceed with an Intervention, IVUS or other adjunct procedure. XB 3.5 Guide catheter was inserted and engaged into the LCA. The FFR/iFR wire was inserted. iFR Ratio: 0.93 iFR Ratio: 0.92 The FFR/iFR wire was then removed. The arterial sheath was pulled and a TR Band was applied for hemostasis INTERVENTION INFORMATION LESION SITE: LAD (Mid) Lesion Devices: Poseis 6 Fr XB3.5 100cm Guide Catheter RewardLoop Coronary FFR Wire COMPLICATIONS No Complications PROCEDURE MEDICATIONS Versed 1 mg IV Fentanyl 50 mcg IV Oxygen: 2 L/min via nasal cannula Benadryl 50 mg IV @ 02/22/2024 12:14:38 Heparin given IA 02/22/2024 12:20:16 Heparin 5000 unit(s) IV 02/22/2024 13:13:46 Solu-medrol 125 mg IV 02/22/2024 12:14:26 SUMMARY OF HEMODYNAMIC DATA Time AIR REST ECG 09:38:31 AO 110/60 (79) SA 12:25:32 AO 110/77 (93) 12:30:32 AIR REST 13:31:29 Signed By Pedrito Bermudez MD On 02/24/2024 10:58:37 Pedrito Bermudez MD
== END 2024-02-22 15:33 | disposition home or self-care (01) ==
PROVIDERS: PCP Family Medicine; Referring Provider Internal Medicine Cardiovascular Disease; Visit Provider Internal Medicine Cardiovascular Disease
DX: I11.0 Hypertensive heart disease with heart failure (principal); I50.42 Chronic combined systolic (congestive) and diastolic (congestive) heart failure; I25.10 Atherosclerotic heart disease of native coronary artery without angina pectoris; I25.2 Old myocardial infarction; E66.9 Obesity, unspecified; E78.5 Hyperlipidemia, unspecified; Z95.5 Presence of coronary angioplasty implant and graft; Z79.51 Long term (current) use of inhaled steroids; Z79.82 Long term (current) use of aspirin; Z79.899 Other long term (current) drug therapy; Z86.16 Personal history of COVID-19; Z95.810 Presence of automatic (implantable) cardiac defibrillator; Z86.73 Personal history of transient ischemic attack (TIA), and cerebral infarction without residual deficits; Z68.36 Body mass index [BMI] 36.0-36.9, adult
CPT/HCPCS: 93454; 93571; 99152; 99153; Q9967; C1769; C1887; C1894

== ENCOUNTER → 2024-05-05 | Outpatient (CLI) | payer MEDICARE, OTHER, SELFPAY ==
--- NOTE | 2024-05-05 15:15 | RAD_ITS ---
EXAM: XR CHEST, 2 VIEWS CLINICAL INDICATION: SOB TECHNIQUE: Frontal and lateral views of the chest. COMPARISON: 02/17/2024 FINDINGS: LUNGS AND PLEURAL SPACES: No definite focal pneumonia, effusion, or pneumothorax. Possible pulmonary vascular congestion. HEART: No significant abnormality. Cardiac silhouette not enlarged. MEDIASTINUM: Central airways and mediastinal contour are unremarkable. BONES/JOINTS: Degenerative changes in the spine. No acute fracture. SOFT TISSUES: No significant abnormality. VASCULATURE: Atherosclerosis. LYMPH NODES: Parahilar fullness perhaps secondary to lymph node enlargement and/or pulmonary vascular congestion. TUBES, LINES AND DEVICES: Left-sided cardiac device. RAD/Chest PA and Lateral IMPRESSION: Parahilar fullness perhaps secondary to lymph node enlargement and/or pulmonary vascular congestion. Electronically Signed: Jarad Samayoa DO at 22:57 EDT ,
[2024-05-05 17:13] LABS: Absolute Lymphocyte Count 0.97 X10^3/uL (0.83-4.51); Absolute Neutrophil Count 4.6 X10^3/uL (2.0-7.7); Basophil# 0.02 X10^3/uL; Basophil% 0.3 % (0-1); Eosinophils% 1.6 % (0-5); Hematocrit 44.6 % (40-54); Hemoglobin 13.8 g/dL (13.0-16.5); Lymphocyte # 0.97 X10^3/ul (0.83-4.51); Lymphocyte % 15.1 % (19-41); Mean Corp Hgb Conc 30.9 g/dL (32-36); Mean Corpuscular Hgb 29.6 pg (27.0-32.0); Mean Corpuscular Volume 95.5 fL (80-94); Mean Platelet Vol. 11.4 fl (6.2-12.0); Monocyte% 10.9 % (0-10); NRBC Flagged by Analyzer 0 % (0-5); Neutrophil # 4.59 X10^3/uL (2.7-7.7); Neutrophil % 71.6 % (47-70); Platelet Count 169 K/mm3 (150-450); RBC Distribution Width CV 13.5 % (11.6-14.6); RBC Distribution Width SD 47.4 fl (35.1-43.9); Red Blood Count 4.67 M/mm3 (4.6-6.2); White Blood Count 6.4 K/mm3 (4.4-11.0)
[2024-05-05 17:38] LABS: Anion Gap 1 (5-15); BUN 15 mg/dL (7-18); BUN/Creat Ratio 11.6 RATIO (10-20); Calcium,Total 9.3 mg/dL (8.5-10.1); Chloride 109 mmol/L (98-107); Creatinine, Serum 1.29 mg/dL (0.70-1.30); EST Glomerular Filtration Rate 58 mL/min (>60); Est Glom Filt Rate - Afr Amer 70 mL/min (>60); Glucose 82 mg/dL (74-106); Potassium 4.5 mmol/L (3.5-5.1); Sodium Level 143 mmol/L (136-145)
[2024-05-05 20:37] LABS: BNP,B-Type NATRIURETIC PEPTIDE 158.1 pg/mL (0-100)
== END | disposition home or self-care (01) ==
LOC: RAD 15:12
PROVIDERS: Internal Medicine Cardiovascular Disease; PCP Family Medicine; Referring Provider Nurse Practitioner Gerontology; Visit Provider Nurse Practitioner Gerontology
DX: R06.00 Dyspnea, unspecified (principal); I50.42 Chronic combined systolic (congestive) and diastolic (congestive) heart failure; I48.91 Unspecified atrial fibrillation; R00.0 Tachycardia, unspecified
CPT/HCPCS: 36415; 71046; 80048; 83735; 83880; 84443; 85025

== ENCOUNTER → 2024-06-07 | Outpatient (CLI) | payer MEDICARE, OTHER, SELFPAY | END | disposition home or self-care (01) | LOC: PSN 10:36 | PROVIDERS: PCP Family Medicine; Referring Provider Nurse Practitioner Family; Visit Provider Nurse Practitioner Family | DX: R00.0 Tachycardia, unspecified (principal) | CPT/HCPCS: 93225; 93226 ==

== ENCOUNTER → 2024-06-14 | Outpatient (CLI) | payer MEDICARE, OTHER, SELFPAY | END | disposition home or self-care (01) | LOC: PSN 13:08 | PROVIDERS: PCP Family Medicine; Referring Provider Nurse Practitioner Acute Care; Visit Provider Nurse Practitioner Acute Care | DX: D86.9 Sarcoidosis, unspecified (principal) | CPT/HCPCS: 94060; 94726; 94729 ==

== ENCOUNTER → 2024-06-21 | Outpatient (CLI) | payer MEDICARE, OTHER, SELFPAY ==
[2024-06-21 13:59] VITALS: PULSE 102; PULSE 104; PULSE 81; PULSE 86; PULSE 98; PULSE 99; O2SAT 95; O2SAT 96; O2SAT 97; O2SAT 98
--- NOTE | 2024-06-27 13:12 | PCM.PSN.6M ---
PSN 6 Minute Walk Test 6 Minute Walk Test 6 Minute Walk Test: 6 Minute Walk Test PSN:6-Minute Walk Test Start: 06/21/24 13:59 Freq: Status: Active Protocol: RESP.6MINW Document 06/21/24 13:59 ENEDINA (Rec: 06/21/24 14:07 MATEOON [id number]) 6 Minute Walk Test Date Performed 06/21/24 Time Performed 12:40 Height 5 ft 9 in Weight: 237 lb Weight in Pounds 237.[address]: Malinda Kevin MOTORIZED [employer]QU[employer]TAIN Assistive device used: None Pre-test Oxygen Delivery Method Room Air Pulse Ox (%) 97 Pulse Rate (60-100 beats/min) 81 Dyspnea Michel Scale (0-10) 0 Exertion Michel Scale (6-20) 6 1st minute Oxygen Delivery Method Room Air Pulse Ox (%) 98 Pulse Rate (60-100 beats/min) 104 H 2nd minute Oxygen Delivery Method Room Air Pulse Ox (%) 95 Pulse Rate (60-100 beats/min) 102 H 3rd minute Oxygen Delivery Method Room Air Pulse Ox (%) 96 Pulse Rate (60-100 beats/min) 99 4th minute Oxygen Delivery Method Room Air Pulse Ox (%) 96 Pulse Rate (60-100 beats/min) 98 5th minute Oxygen Delivery Method Room Air Pulse Ox (%) 96 Pulse Rate (60-100 beats/min) 104 H 6th minute Oxygen Delivery Method Room Air Pulse Ox (%) 96 Pulse Rate (60-100 beats/min) 102 H Dyspnea Michel Scale (0-10) 3 Exertion Michel Scale (6-20) 13 Post-test Oxygen Delivery Method Room Air Pulse Ox (%) 98 Pulse Rate (60-100 beats/min) 86 Full Laps Walked 20 Partial Lap, Number of Tiles Walked 22 Total Distance Walked (ft) 1202 Interpretation Interpretation: The patient ambulated 1202 feet over the course of 6 minutes beginning on room air without assistive devices. Pretesting oxygen saturation was noted to be 97% on room air. With ambulation, the kerrie oxygen saturation was 95%. There was no significant exertional oxygen desaturation. Recommendations Recommendations: There is no indication for the use of supplemental oxygen at this time.
== END | disposition home or self-care (01) ==
LOC: PSN 12:36
PROVIDERS: PCP Family Medicine; Referring Provider Nurse Practitioner Acute Care; Visit Provider Nurse Practitioner Acute Care
DX: R06.00 Dyspnea, unspecified (principal)
CPT/HCPCS: 94618

== ENCOUNTER 2024-08-11 14:27 | Emergency (ER) | payer MEDICARE, OTHER, SELFPAY ==
[2024-08-11 14:28] VITALS: BP 147/94; PULSE 64; RESP 16; TEMP 36.4; O2SAT 94; BMI 36.9
--- NOTE | 2024-08-11 14:43 | CT_ITS ---
INDICATION: dizziness EXAMINATION: CT BRAIN - CT Head or Brain W/O Contrast Injection TECHNIQUE: Multiple axial images were obtained of the head without intravenous contrast. A radiation dose optimization technique was used for this scan. IV Contrast dosage and agent: None. COMPARISON: 08/26/2023 FINDINGS: BRAIN PARENCHYMA: No intra- or extra-axial hemorrhage. No evidence of acute infarct. No intracranial mass or mass effect. There is preservation of the monzon/white matter interface. Posterior fossa structures are unremarkable. Stable volume loss with low attenuation of the periventricular white matter typical of chronic small vessel disease. CSF SPACES: Stable. No hydrocephalus. Basal cisterns are patent. CALVARIUM, SKULL BASE, PARANASAL SINUSES AND MASTOID AIR CELLS: Scattered minimal mucoperiosteal thickening. No discrete lytic or blastic abnormalities. CT/Brain/Head without Contrast IMPRESSION: Volume loss with chronic white matter changes. No acute intracranial findings. Electronically Signed: Timothy Flores MD at 15:34 EST ,
--- NOTE | 2024-08-11 14:45 | EKG12_ITS ---
Test Reason : Blood Pressure : */* mmHG Vent. Rate : 66 BPM Atrial Rate : 66 BPM P-R Int : 192 ms QRS Dur : 88 ms QT Int : 416 ms P-R-T Axes : 55 -30 121 degrees QTcB Int : 436 ms Normal sinus rhythm Left axis deviation Inferior infarct (cited on or before 25-Aug-2023) Cannot rule out Anterior infarct , age undetermined Abnormal ECG When compared with ECG of 25-Aug-2023 20:19, No significant change was found Confirmed by NARINDER WEEKS, EDGARDO ([id number]), editorial writer CHALINO HANSEN ([id number]) on 08/17/2024 7:56:13 AM Referred By: Tremayne Ordoñez Confirmed By: EDGARDO BARCENAS MD
--- NOTE | 2024-08-11 14:48 | EX.ED.DYSGE1 ---
HPI <MARY Faulkner - Last Filed: 08/11/24 17:26> History of Present Illness Chief Complaint: Dizziness Narrative Narrative: Patient is a 74-year-old male with history of CAD, with stents in the LAD, history of congestive heart failure with a ejection fraction of 30% with a pacemaker presenting to the [facility] for sudden onset of dizziness, nausea. Patient states that he was getting something out of his car was bent over, during this time when he stood up, he had some hearing loss, felt dizzy as like the room was spinning, he also felt nauseous. Secondary to his medical history, he called the ambulance. He denies any headache, chest pain or shortness of breath. Denies any recent illnesses. 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 Essential (primary) hypertension Sarcoidosis Pneumonia Diverticulitis Prostate CA HLD (hyperlipidemia) Atherosclerotic heart disease of [place] coronary artery without angina pectoris Injury to specified blood vessels of upper extremity, other Injury to specified blood vessels of lower extremity, other VILLAGRAN (dyspnea on exertion) Abnormal chest CT Obesity Ventricular tachycardia Ischemic cardiomyopathy Home Medications ?Medication ?Instructions ?Recorded ?Last Taken ?Type aspirin 81 mg tablet,delayed 81 mg PO DAILY 12/23/16 02/22/24 History release calcium 500 mg (as 1 ea PO BID 12/23/16 05/06/17 History carbonate)-vitamin D3 5 mcg (200 unit) tablet fluoxetine 20 mg capsule 20 mg PO DAILY 12/23/16 02/22/24 History multivitamin 1 ea PO DAILY 12/23/16 05/06/17 History ramipril 10 mg capsule 10 mg PO DAILY 12/23/16 02/22/24 History albuterol sulfate 90 mcg/actuation 2 puff inhalation Q4H PRN 06/28/21 Unknown Rx aerosol inhaler shortness of breath or wheezing #8.5 grams tamsulosin 0.4 mg capsule 0.4 mg PO DAILY 03/28/23 08/05/24 History Clopidoxyzine insomnia 08/25/23 Unknown History nitroglycerin 0.4 mg sublingual 0.4 mg sublingual Q5M PRN Chest 10/20/23 Unknown Rx tablet Pain #25 tabs carvedilol 25 mg tablet 25 mg PO BID #180 tabs 11/26/23 02/22/24 Rx clopidogrel 75 mg tablet 75 mg PO DAILY #90 tabs 11/26/23 02/22/24 Rx ezetimibe 10 mg tablet (Zetia) 10 mg PO DAILY #30 tabs 02/17/24 Unknown Rx isosorbide mononitrate 30 mg 30 mg PO DAILY #30 tabs 02/17/24 Unknown Rx tablet,extended release 24 hr evolocumab 140 mg/mL subcutaneous 140 mg subcut Q2W #2 mL 04/11/24 Unknown Rx pen injector (Yan Munozick) spironolactone 25 mg tablet 25 mg PO QDAY #30 tabs 05/05/24 Unknown Rx furosemide 40 mg tablet (Lasix) 40 mg PO DAILY #30 tabs 05/06/24 Unknown Rx meclizine 25 mg tablet 25 mg PO 4X/DAY PRN PRN Dizziness 08/11/24 Unknown Rx #20 tabs ondansetron 4 mg disintegrating 4 mg PO Q8H PRN PRN Nausea #10 tabs 08/11/24 Unknown Rx tablet Allergy/AdvReac Type Severity Reaction Status Date / Time atorvastatin (From Lipitor) Allergy Unknown Verified 05/05/24 14:37 Iodinated Contrast Media Allergy Anaphylaxis Verified 05/05/24 14:37 (CONTRASTS) pravastatin AdvReac myalgia Verified 05/05/24 14:37 simvastatin AdvReac myalgia Verified 05/05/24 14:37 Family History Father Myocardial infarction CAD (coronary artery disease) Heart disease Prostate CA Mother Kidney disease CVA (cerebral vascular accident) Cystic fibrosis Sister Cystic fibrosis Sister Cystic fibrosis Surgical History History of open reduction and internal fixation (ORIF) procedure History of left heart catheterization (05/06/17) History of implantable cardiac defibrillator (ICD) (09/19/10) History of coronary artery stent placement (05/19/05) H/O umbilical hernia repair H/O Achilles tendon repair Social History Smoking Status: Never smoker alcohol intake: current alcohol intake frequency: a few times a week Alcohol type: beer and hard liquor substance use type: does not use ROS <MARY Faulkner - Last Filed: 08/11/24 17:26> ROS ED ROS Narrative Constitutional: Negative for fever, chills, weight loss. Positive for weakness Eyes: Negative for vision loss, vision change, double vision ENT: Negative for any sore throat, ear pain, congestion Cardiovascular: Negative for any chest pain, tightness, palpitations Respiratory: Negative for any cough, sputum production, hemoptysis, dyspnea, dyspnea on exertion, orthopnea Gastrointestinal: Negative for any abdominal pain, nausea, vomiting, diarrhea, constipation, blood in stool, blood in vomit : Negative for any urinary frequency, dysuria, retention, blood in urine Muscle skeletal: Negative for any neck pain, back pain Neurological: Negative for any headache, syncope. Positive for dizziness Skin: Negative for any rashes, itching, abrasions, lacerations Psychiatric: Negative for any depression, anxiety, stress, suicidal ideation, homicidal ideation Hematologic: Negative for any excessive bruising, easy bleeding EXAM <MARY Faulkner - Last Filed: 08/11/24 17:26> Physical Exam Narrative Exam Narrative: Vital signs reviewed. Patient alert and orient x 4. HEET: Head normocephalic atraumatic, TMs clear bilaterally. Posterior pharynx is clear, moist mucous membranes. Nares clear bilaterally. Pupils are round reactive to light Neck: Supple with no lymphadenopathy or tenderness. No signs of meningismus. Cardiac: Regular rate and rhythm no murmurs gallops or rubs, equal peripheral pulses bilaterally. Respiratory: Lungs clear to auscultation bilaterally. No chest tenderness. Abdomen: Soft, nontender, nondistended. No abdominal bruit or pulsatile masses. No hepatosplenomegaly Extremities: No peripheral edema, no signs of gross trauma or deformity. Active full range of motion of all extremities. Neuro: Cranial nerves II through XII intact, no focal neurological deficits. Skin: Clean dry and intact with no rash, purpura, petechiae, vesicles or pustules. During [place]-Hall[place], patient did have some unilateral nystagmus to the left side. NIH stroke scale 0 Backs/flank: No CVA tenderness, no midline spinal tenderness, no deformity. Psych: Normal mood and affect. No SI, HI or acute psychosis. Const Vital Signs: 08/11/24 14:28 08/11/24 16:35 08/11/24 17:42 Temperature 97.6 F L 98 F Temperature Source Oral Pulse Rate 64 66 81 Respiratory Rate 16 16 16 Blood Pressure 147/94 H 140/81 H 138/77 H Blood Pressure Mean 111 100 97 Pulse Ox 94 96 97 Oxygen Delivery Method Room Air Room Air <Dr. Tremayne Ordoñez DO - Last Filed: 08/11/24 21:50> Physical Exam Const Vital Signs: 08/11/24 14:28 08/11/24 16:35 08/11/24 17:42 Temperature 97.6 F L 98 F Temperature Source Oral Pulse Rate 64 66 81 Respiratory Rate 16 16 16 Blood Pressure 147/94 H 140/81 H 138/77 H Blood Pressure Mean 111 100 97 Pulse Ox 94 96 97 Oxygen Delivery Method Room Air Room Air [facility] <MARY Faulkner - Last Filed: 08/11/24 17:26> [facility] Lab Data Labs: Laboratory Results - last 24 hr 08/11/24 08/11/24 14:53 16:36 WBC 5.0 RBC 4.52 L Hgb 13.6 Hct 42.6 MCV 94.2 H MCH 30.1 MCHC 31.9 L RDW Std Deviation 45.9 H RDW Coeff of [place] 13.4 Plt Count 179 MPV 10.6 Immature Gran % (Auto) 0.400 Neut % (Auto) 71.2 H Lymph % (Auto) 13.5 L [place] % (Auto) 13.3 H Eos % (Auto) 1.4 Baso % (Auto) 0.2 Absolute Neuts (auto) 3.6 Absolute Lymphs (auto) 0.68 L Nucleated RBC % 0 PT 13.9 INR 1.0 Sodium 138 Potassium 3.8 Chloride 106 Carbon Dioxide 26.0 Anion Gap 6 BUN 20 H Creatinine 1.00 Estim Creat Clear Calc 81.68 Est GFR (MDRD) Af Amer 94 Est GFR (MDRD) Non-Af 78 BUN/Creatinine Ratio 20.0 Glucose 119 H Calcium 9.1 Total Bilirubin 0.50 AST 23 ALT 33 Alkaline Phosphatase 57 Troponin I High Sens 12 Total Protein 7.0 Albumin 3.0 L Globulin 4.0 Albumin/Globulin Ratio 0.8 L Urine Color Yellow Urine Clarity Clear Urine pH 6.0 Ur Specific [place] 1.020 Urine Protein 15 H Urine Glucose (UA) Normal Urine Ketones Negative Urine Occult Blood Negative Urine Nitrite Negative Urine Bilirubin Negative Urine Urobilinogen Normal Ur Leukocyte Esterase Negative Urine RBC 0-5 SEEN Urine WBC 0-5 SEEN Ur Squamous Epith Cells 0 SEEN Urine Bacteria 0 SEEN Urine Mucus 0 SEEN Radiography Diagnostic Testing: Clinical Impression(s) from Imaging Studies Brain CT 08/11/24 14:43 IMPRESSION: Volume loss with chronic white matter changes. No acute intracranial findings. Electronically Signed: Timothy Flores MD at 15:34 EST , EKG EKG shows a normal sinus rhythm, rate of 66 bpm,: Attestation: I personally reviewed and interpreted this EKG as follows: Interpretation: Sinus Rhythm Comments: Normal sinus rhythm, rate of 66 bpm, [place] interval 192 ms, QRS duration 88 ms, no acute ST elevation, no acute infarct noted Treatment and Re-Evaluation :: Differential diagnosis includes however is not limited to: Benign positional vertigo, central vertigo, TIA, CVA, electrode abnormality, Sjogren's disease Patient appears generally well, vital signs are stable, patient is nontoxic-appearing. Presenting to the emergency department with complaints of dizziness, feeling unsteady, nausea. Physical examination is consistent with a peripheral vertigo. However patient will receive a CT scan of the brain, IV Reglan. Patient does have a iodine allergy which is anaphylaxis. Laboratory values will be drawn. All radiologic examinations were read, reviewed by the emergency department attending. From these reads, a plan of care will be put in place. CBC was unremarkable, patient's PT/INR showed a PT of 13.9 with INR 1, patient's chemistries were unremarkable. Patient's CT scan of brain showed no acute intracranial findings. At this time, patient was redosed with oral meclizine. On reevaluation the patient felt much improved. Patient ambulated well and states that his dizziness is gone. Patient will be discharged for home. I believe the patient is having any concern for CVA or TIA I think this is more of a peripheral vertigo. He will follow-up outpatient. Given strict return precautions. Stable for discharge. Patient <Dr. Tremayne Ordoñez, DO - Last Filed: 08/11/24 21:50> MDM MDM Narrative Medical decision making narrative: Interventions / MDM: Differential diagnosis: Vertigo Diagnosis considered but do not suspect: CVA however unilateral horizontal nystagmus to 1 side with positive [place]-Hallpike. My EKG interpretation: Sinus rate of 66, no ST changes. T wave inversions leads I and aVL, similar findings from January 2024. Imaging independently reviewed and interpreted by myself: CT brain: No acute process read by radiology. External documents reviewed: N/A Test considered but not ordered:N/A ED course: Attending note: I have personally performed a face to face assessment of the patient and have reviewed the JACKI note. I personally made/approved the management plan and take responsibility for the patient management. I performed a substantive portion of the visit including all aspects of the following. My cavanaugh findings include: Sudden onset of dizziness picking something up from the floor of the car. Spinning sensation with nausea. History of coronary disease on Plavix. No stroke history. No speech changes no hemiparesis. No recent sinus congestion. States ringing to left ear. 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 Positive [place]-Hallpike. EKG sinus rhythm with chronic findings. CT negative head additional meclizine ordered. Reevaluate he is able to ambulate with no difficulties. Prescription of meclizine to his pharmacy. Re-evaluation: stable Disposition discussed with patient/family/significant other: Patient Case discussed with consulting clinician: N/A This note was generated with [employer] dictation software. It may contain incorrect words, spelling, and punctuation that were not noted in checking the note before signing. Lab Data Attestation: I reviewed the patient's lab results. Labs: Laboratory Results - last 24 hr 08/11/24 08/11/24 14:53 16:36 WBC 5.0 RBC 4.52 L Hgb 13.6 Hct 42.6 MCV 94.2 H MCH 30.1 MCHC 31.9 L RDW Std Deviation 45.9 H RDW Coeff of [place] 13.4 Plt Count 179 MPV 10.6 Immature Gran % (Auto) 0.400 Neut % (Auto) 71.2 H Lymph % (Auto) 13.5 L [place] % (Auto) 13.3 H Eos % (Auto) 1.4 Baso % (Auto) 0.2 Absolute Neuts (auto) 3.6 Absolute Lymphs (auto) 0.68 L Nucleated RBC % 0 PT 13.9 INR 1.0 Sodium 138 Potassium 3.8 Chloride 106 Carbon Dioxide 26.0 Anion Gap 6 BUN 20 H Creatinine 1.00 Estim Creat Clear Calc 81.68 Est GFR (MDRD) Af Amer 94 Est GFR (MDRD) Non-Af 78 BUN/Creatinine Ratio 20.0 Glucose 119 H Calcium 9.1 Total Bilirubin 0.50 AST 23 ALT 33 Alkaline Phosphatase 57 Troponin I High Sens 12 Total Protein 7.0 Albumin 3.0 L Globulin 4.0 Albumin/Globulin Ratio 0.8 L Urine Color Yellow Urine Clarity Clear Urine pH 6.0 Ur Specific [place] 1.020 Urine Protein 15 H Urine Glucose (UA) Normal Urine Ketones Negative Urine Occult Blood Negative Urine Nitrite Negative Urine Bilirubin Negative Urine Urobilinogen Normal Ur Leukocyte Esterase Negative Urine RBC 0-5 SEEN Urine WBC 0-5 SEEN Ur Squamous Epith Cells 0 SEEN Urine Bacteria 0 SEEN Urine Mucus 0 SEEN Radiography Diagnostic Testing: Clinical Impression(s) from Imaging Studies Brain CT 08/11/24 14:43 IMPRESSION: Volume loss with chronic white matter changes. No acute intracranial findings. Electronically Signed: Timothy Flores MD at 15:34 EST Reading Location ID and State: [facility] / [place] Tel , Service support , Discharge Plan Triage Chief Complaint: Dizziness ED Midlevel Provider: José Antonio Covarrubias ED Provider: Tremayne Ordoñez Dx/Rx/DC Orders Clinical Impression: Dizziness, Vertigo Instructions: ED Dizziness, Uncertain Cause, ED Vertigo, Unspecified Prescriptions: New meclizine 25 mg tablet 25 mg PO 4X/DAY PRN PRN (Reason: Dizziness) Qty: 20 0RF ondansetron 4 mg tablet,disintegrating 4 mg PO Q8H PRN PRN (Reason: Nausea) Qty: 10 0RF No Action nitroglycerin 0.4 mg tablet, sublingual 0.4 mg SUBLINGUAL Q5M PRN (Reason: Chest Pain) Qty: 25 1RF ezetimibe [Zetia] 10 mg tablet 10 mg PO DAILY Qty: 30 6RF isosorbide mononitrate 30 mg tablet extended release 24 hr 30 mg PO DAILY Qty: 30 6RF spironolactone 25 mg tablet 25 mg PO QDAY Qty: 30 11RF multivitamin 1 EACH tablet 1 ea PO DAILY aspirin 81 MG tablet,delayed release (DR/EC) 81 mg PO DAILY fluoxetine 20 MG capsule 20 mg PO DAILY ramipril 10 MG capsule 10 mg PO DAILY calcium carbonate-vitamin D3 1 EACH tablet 1 ea PO BID tamsulosin 0.4 mg capsule 0.4 mg PO DAILY Patient Comments: Clopidoxyzine albuterol sulfate 90 mcg/actuation HFA aerosol inhaler 2 puff INHALATION Q4H PRN (Reason: shortness of breath or wheezing) Qty: 8.5 3RF Rx Instructions: administer with spacer clopidogrel 75 mg tablet 75 mg PO DAILY Qty: 90 3RF carvedilol 25 mg tablet 25 mg PO BID Qty: 180 3RF Repatha SureClick 140 mg/mL pen injector 140 mg subcut Q2W Qty: 2 11RF furosemide [Lasix] 40 mg tablet 40 mg PO DAILY Qty: 30 11RF Primary Care Provider: Sanju Guillen Referrals: Sanju Guillen MD [Primary Care Provider] - Activity Restrictions/Additional Instructions: Please follow-up outpatient. Print Language: Djib[place] Disposition Disposition: Home, Self Care Discharge Date/Time: 08/11/24 17:42
[2024-08-11] MEDS: Metoclopramide 10 MG/2 ML Vial 5 MG IV (14:56)
[2024-08-11 15:03] LABS: Absolute Lymphocyte Count 0.68 X10^3/uL (0.83-4.51); Absolute Neutrophil Count 3.6 X10^3/uL (2.0-7.7); Basophil# 0.01 X10^3/uL; Basophil% 0.2 % (0-1); Eosinophil# 0.07 X10^3/uL; Eosinophils% 1.4 % (0-5); Hematocrit 42.6 % (40-54); Hemoglobin 13.6 g/dL (13.0-16.5); Lymphocyte # 0.68 X10^3/ul (0.83-4.51); Lymphocyte % 13.5 % (19-41); Mean Corp Hgb Conc 31.9 g/dL (32-36); Mean Corpuscular Hgb 30.1 pg (27.0-32.0); Mean Corpuscular Volume 94.2 fL (80-94); Mean Platelet Vol. 10.6 fl (6.2-12.0); Monocyte# 0.67 X10^3/uL; Monocyte% 13.3 % (0-10); NRBC Flagged by Analyzer 0 % (0-5); Neutrophil # 3.57 X10^3/uL (2.7-7.7); Neutrophil % 71.2 % (47-70); Platelet Count 179 K/mm3 (150-450); RBC Distribution Width CV 13.4 % (11.6-14.6); RBC Distribution Width SD 45.9 fl (35.1-43.9); Red Blood Count 4.52 M/mm3 (4.6-6.2)
[2024-08-11 15:16] LABS: Prothrombin Time (Protime)PT. 13.9 SECONDS (11.7-14.9)
[2024-08-11 15:20] LABS: ALB/GLOB Ratio 0.8 RATIO (0.9-2.4); AST(SGOT) 23 U/L (15-37); Alanine Aminotransfer ALT/SGPT 33 U/L (16-61); Alkaline Phosphatase 57 U/L (45-117); Anion Gap 6 (5-15); BUN 20 mg/dL (7-18); Calcium,Total 9.1 mg/dL (8.5-10.1); Chloride 106 mmol/L (98-107); EST Glomerular Filtration Rate 78 mL/min (>60); Est Glom Filt Rate - Afr Amer 94 mL/min (>60); Estimated Creatinine Clearance 81.68 ml/min; Glucose 119 mg/dL (74-106); Potassium 3.8 mmol/L (3.5-5.1); Sodium Level 138 mmol/L (136-145)
[2024-08-11 15:41] LABS: Troponin-I HS 12 pg/mL (3.0-78.0)
[2024-08-11] MEDS: Meclizine HCl 25 MG Tablet PO (16:01)
[2024-08-11 16:20] VITALS: O2SAT 97
[2024-08-11 16:35] VITALS: BP 140/81; PULSE 66; RESP 16; O2SAT 96
[2024-08-11 16:55] LABS: Mucous, Urine 0 SEEN /hpf (<or=2+); Squamous Epithelial Cells - UA 0 SEEN /hpf (0-5)
[2024-08-11 16:58] LABS: Color, Urine Yellow (Yellow); Glucose, Dipstick Normal (Normal); Ketone-Dipstick Negative (Negative); Leukocyte Esterase-Dipstick Negative /ul (Negative); Nitrite-Dipstick Negative (Negative); Occult Blood-Urine Negative /ul (Negative); Protein-Dipstick 15 mg/dl (Negative); Urine Bilirubin Dipstick Negative (Negative); Urine Clarity Clear (Clear); Urine Urobilinogen Normal (Normal)
[2024-08-11 17:42] VITALS: BP 138/77; PULSE 81; RESP 16; TEMP 36.6; O2SAT 97
[2024-08-11 17:53] LABS: Red Blood Cells-Urine 0-5 SEEN /hpf (0-5); White Blood Cells 0-5 SEEN /hpf (0-5)
[2024-08-11 17:56] LABS: Bacteria 0 SEEN /hpf (None Seen)
== END 2024-08-11 17:42 | disposition home or self-care (01) ==
PROVIDERS: Nurse Practitioner; Emergency Provider Emergency Medicine; PCP Family Medicine; Referring Provider Emergency Medicine; Visit Provider Emergency Medicine
DX: R42 Dizziness and giddiness (principal); I11.0 Hypertensive heart disease with heart failure; I50.42 Chronic combined systolic (congestive) and diastolic (congestive) heart failure; Z95.5 Presence of coronary angioplasty implant and graft; I25.10 Atherosclerotic heart disease of native coronary artery without angina pectoris; E78.5 Hyperlipidemia, unspecified; Z95.0 Presence of cardiac pacemaker; Z86.73 Personal history of transient ischemic attack (TIA), and cerebral infarction without residual deficits; I25.2 Old myocardial infarction; Z85.46 Personal history of malignant neoplasm of prostate; Z79.82 Long term (current) use of aspirin; Z79.899 Other long term (current) drug therapy; Z79.02 Long term (current) use of antithrombotics/antiplatelets
CPT/HCPCS: 70450; 80053; 81001; 84484; 85025; 85610; 93005; 99284; A4216

== ENCOUNTER → 2024-12-14 | Outpatient (CLI) | payer MEDICARE, OTHER, SELFPAY ==
[2024-12-14 16:22] LABS: Anion Gap 9 (5-15); BUN 18 mg/dL (4-19); BUN/Creat Ratio 16.7 RATIO (10-20); Calcium,Total 9.4 mg/dL (7.6-11.0); Carbon Dioxide 27.6 mmol/L (21.0-32.0); Chloride 101 mmol/L (98-108); Creatinine, Serum 1.09 mg/dL (0.70-1.20); EST Glomerular Filtration Rate 72 (>60); Glucose 84 mg/dL (70-99); Potassium 4.2 mmol/L (3.3-5.1); Sodium Level 137 mmol/L (133-145)
[2024-12-14 16:25] LABS: AST(SGOT) 22 U/L (<=37); Alanine Aminotransfer ALT/SGPT 26 U/L (<=46); Albumin, Serum 3.8 g/dL (3.4-4.8); Alkaline Phosphatase 66 U/L (40-129); Bilirubin, Direct 0.27 mg/dL (0.00-0.30); Cholesterol 117 mg/dL (<=200); High Density Lipoprotein 49 mg/dL; Low Density Lipoprotein Calc. 55 mg/dL; Protein, Total 6.9 g/dL (5.9-8.4); Total Bilirubin 0.55 mg/dL (0.00-1.30); Triglycerides 62 mg/dL; Very Low Density Lipoprotein 12 mg/dL (5-40); cholesterol:hdl ratio screen 2.38
== END | disposition home or self-care (01) ==
LOC: LAB 13:49
PROVIDERS: Nurse Practitioner Gerontology; PCP Family Medicine; Referring Provider Physician Assistant Medical; Visit Provider Physician Assistant Medical
DX: I25.5 Ischemic cardiomyopathy (principal); E78.5 Hyperlipidemia, unspecified; I25.10 Atherosclerotic heart disease of native coronary artery without angina pectoris
CPT/HCPCS: 36415; 80048; 80061; 80076